=== PATIENT | male | born 1965 | race Caucasian/White ===

== ENCOUNTER 2017-05-13 06:57 | Inpatient (IN) | payer BC, OTHER ==
[~2017-05-13 06:57] MED LIST: Lidocaine 1%/Sod Bicarbonate in NS 8.4% 1 ML Syringe PRN; Sodium Chloride 0.9% 10 ML Syringe FLUSH PRN
[2017-05-13] MEDS: Lactated Ringers 1,000 ML IV SCH ×2 (07:21→12:04)
--- NOTE | 2017-05-13 07:37 | PCM.PREANE ---
Preanesthetic Assessment - Procedure Proposed Procedure: Right TKA - Anesthesia/Transfusion/Family Hx Anesthesia History: Prior Anesthesia Without Reaction Family History of Anesthesia Reaction: Yes (mother has excessive somnolence) Transfusion History: No Prior Transfusion(s) Intubation History: Unknown - Review of Systems General: No Symptoms Pulmonary: Other (GERBER with CPAP) Cardiovascular: Other (HLD, ) Gastrointestinal: Other (GERD) Neurological: No Symptoms Other: Reports: Diabetes (preDM), Anxiety - Physical Assessment NPO Status Date: 05/12/17 NPO Status Time: 20:00 Pulse: 64 O2 Sat by Pulse Oximetry: 95 Respiratory Rate: 16 Blood Pressure: 123/81 Temperature: 36.9 C Height: 1.83 m Weight: 111.584 kg ASA Class: 2 Mental Status: Alert & Oriented x3 Airway Class: Mallampati = 2 Dentition: Reports: Normal Dentition Thyro-Mental Finger Breadths: 3 Mouth Opening Finger Breadths: 3 ROM/Head Extension: Full Lungs: Clear to auscultation, Normal respiratory effort Cardiovascular: Regular Rate, Regular Rhythm - Lab Values: Laboratory Last Values POC Glucose 108 mg/dL (70-105) H 05/13/17 07:22 MRSA (PCR) Negative 05/03/17 11:23 - Allergies Allergies/Adverse Reactions: Allergies Allergy/AdvReac Type Severity Reaction Status Date / Time codeine Allergy Anaphylactic Verified 05/10/17 11:57 Shock - Blood Blood Available: No Product(s) Available: None - Anesthesia Plan Pre-Op Medication Ordered: None - Acknowledgements Anesthesia Type Planned: Spinal (Fontana rods placed in 2003, also patient tolerates morphine fine) Pt an Appropriate Candidate for the Planned Anesthesia: Yes Alternatives and Risks of Anesthesia Discussed w Pt/Guardian: Yes Pt/Guardian Understands and Agrees with Anesthesia Plan: Yes PreAnesthesia Questionnaire HEENT History: Reports: None Cardiovascular History: Reports: High Cholesterol Respiratory History: Reports: Sleep Apnea Gastrointestinal History: Reports: GERD Genitourinary History: Reports: None 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) Other OB/BYN History: degenerative joint disease Musculoskeletal History: Reports: Osteoarthritis, Other (See Below) Other Musculoskeletal History: Degenerative joint disease Neurological History: Reports: None Other Neuro History: short term memory loss Psychiatric History: Reports: Anxiety, Depression Endocrine/Metabolic History: Reports: Other (See Below) Other Endocrine/Metabolic History: Impaired fasting glucose Hematologic History: Reports: None Immunologic History: Reports: None Oncologic (Cancer) History: Reports: None Dermatologic History: Reports: None - Past Surgical History HEENT Surgical History: Reports: Tonsillectomy, Other (See Below) Other HEENT Surgeries/Procedures: Laryngeal stripping of vocal cords Cardiovascular Surgical History: Reports: None Respiratory Surgical History: Reports: None GI Surgical History: Reports: None Male Surgical History: Reports: None Endocrine Surgical History: Reports: None Neurological Surgical History: Reports: Discectomy Musculoskeletal Surgical History: Reports: Knee Replacement, Other (See Below) Other Musculoskeletal Surgeries/Procedures:: Left total knee replacement, low back surgery, cervical anterior diskectomy Dermatological Surgical History: Reports: None - SUBSTANCE USE Smoking Status *Q: Never Smoker Tobacco Use Within Last Twelve Months: No Second Hand Smoke Exposure: No Recreational Drug Use History: No - HOME MEDS Home Medications: Home Meds Aspirin 1 tab PO DAILY 10/12/16 [History] Cholecalciferol (Vitamin D3) [Vitamin D3] 2,000 unit PO DAILY 10/12/16 [History] Citalopram [Celexa] 20 mg PO DAILY 10/12/16 [History] Multivitamin [Poly-Vitamin] 1 tab PO DAILY 10/12/16 [History] Ranitidine [Zantac] 150 mg PO BID 10/12/16 [History] metFORMIN HCl [Metformin HCl] 1,000 mg PO BID 10/12/16 [History] Omeprazole 20 mg PO DAILY 10/15/16 [History] Ascorbate Calcium [Vitamin C] 500 mg PO DAILY 05/10/17 [History] Gluc 2KCl/Chondr/Charlene Hy/Hy Ac [Glucosamine & Chondroitin Cap] 1 tab PO DAILY [History] atorvaSTATin [Lipitor] 20 mg PO DAILY 05/10/17 [History] - CURRENT (IN HOUSE) MEDS Current Meds: Current Medications Aspirin (Ecotrin) 325 mg PO BID [facility] Bisacodyl (Dulcolax) 5 mg PO DAILY PRN PRN Reason: Constipation Morphine Sulfate 8 mg/Epinephrine HCl 0.3 mg/Cefuroxime Sodium 750 mg/Ketorolac Tromethamine 30 mg/Sodium Chloride 27.9 ml 0 mg .XX ONETIME ONE Stop: 05/13/17 09:01 Cyclobenzaprine HCl (Flexeril) 10 mg PO TID PRN PRN Reason: Spasms Docusate Sodium (Colace) 100 mg PO BID [facility] Famotidine (Pepcid) 20 mg PO Q12H [facility] Lactated Ringer's (Ringers, Lactated) 1,000 mls @ 125 mls/hr IV ASDIRECTED FREDIS Stop: 05/13/17 23:00 Cefazolin Sodium/Dextrose 2 gm (/ Premix) 50 mls @ 100 mls/hr IV Q8H [facility] Stop: 05/13/17 23:29 Ketorolac Tromethamine (Toradol) 15 mg IVPUSH Q6H PRN PRN Reason: Pain Stop: 05/13/17 13:01 Lidocaine/Sodium Bicarbonate (Buffered Lidocaine 1% In Ns 8.4%) 0.25 ml .XX ONETIME PRN PRN Reason: Prior to IV Start Stop: 05/13/17 18:00 Magnesium Hydroxide (Milk Of Magnesia) 30 ml PO BID PRN PRN Reason: Constipation Morphine Sulfate (Morphine) 2 mg IVPUSH Q2H PRN PRN Reason: Breakthrough Pain Multivitamins (Thera) 1 each PO WITHBREAKFAST [facility] Naloxone HCl (Narcan) 0.1 mg IVPUSH Q5M PRN PRN Reason: Oversedation Stop: 05/13/17 07:16 Oxycodone/Acetaminophen (Percocet 325-5 Mg) 1 - 2 tab PO Q4H PRN PRN Reason: Pain Senna (Senna) 8.6 mg PO BID PRN PRN Reason: Constipation Sodium Chloride (Saline Flush) 10 ml FLUSH ASDIRECTED PRN PRN Reason: Keep Vein Open Stop: 05/13/17 18:00 Discontinued Medications Bupivacaine HCl (Marcaine 0.25%) Confirm Administered Dose 30 ml .ROUTE .STK- MED ONE Stop: 05/13/17 07:13 Cefazolin Sodium (Ancef) Confirm Administered Dose 2 gm .ROUTE .STK-MED ONE Stop: 05/13/17 07:13 Fentanyl (Sublimaze) Confirm Administered Dose 100 mcg .ROUTE .STK-MED ONE Stop: 05/13/17 07:41 Iodine (Iodine 2% Mild Tincture) Confirm Administered Dose 30 ml .ROUTE .STK- MED ONE Stop: 05/13/17 07:13 Midazolam HCl (Versed 1 Mg/Ml) Confirm Administered Dose 2 mg .ROUTE .STK-MED ONE Stop: 05/13/17 07:41 Propofol (Diprivan 20 Ml) Confirm Administered Dose 600 mg .ROUTE .STK-MED ONE Stop: 05/13/17 07:41 Tranexamic Acid (Cyklokapron) Confirm Administered Dose 1,000 mg .ROUTE .STK- MED ONE Stop: 05/13/17 07:13
[2017-05-13] MEDS ORDERED: Midazolam 1 MG/ML 2 ML SDV ONE (07:40)
[2017-05-13] MEDS ORDERED: Propofol 200 MG/20 ML SDV ONE ×2 (07:40→10:13)
[2017-05-13] MEDS ORDERED: fentaNYL 100 MCG/2 ML SDV ONE (07:40)
[2017-05-13] MEDS ORDERED: Lidocaine 1% 2 ML ONE ×2 (07:42)
[2017-05-13] MEDS ORDERED: Morphine PF 10 MG/10 ML SDV ONE (07:46)
[2017-05-13] MEDS ORDERED: Lidocaine 1% 4 ML ONE (09:15)
[2017-05-13] MEDS ORDERED: Lactated Ringers 1,000 ML ONE (09:17)
[2017-05-13] MEDS ORDERED: ceFAZolin 1 GM Vial ONE (09:17)
[2017-05-13] MEDS: ceFAZolin 1 GM Vial ONE ×2 (09:35→10:02)
[2017-05-13] MEDS: Bupivacaine 0.25% 30 ML SDV ONE ×2 (09:35→10:23)
[2017-05-13] MEDS: Iodine/Sodium Iodide 2% Tincture 30 ML Bottle ONE ×2 (09:36→10:14)
[2017-05-13] MEDS: Morphine 8 MG, EPINEPHrine 0.3 MG, Cefuroxime 750 MG, Ketorolac 30 MG, Sodium Chloride ... ONE ×15 (09:37→19:40)
[2017-05-13] MEDS ORDERED: Ketorolac 15 MG/ML SDV IVPUSH PRN (10:00)
[2017-05-13] MEDS ORDERED: Ondansetron 4 MG/2 ML SDV ONE (10:09)
[2017-05-13] MEDS ORDERED: Magnesium Hydroxide 400 MG/5 ML Susp 30 ML Cup PO PRN (11:00)
[2017-05-13] MEDS ORDERED: Sennosides 8.6 MG Tab PO PRN (11:00)
[2017-05-13] MEDS ORDERED: Bisacodyl 5 MG Tab PO PRN (11:00)
[2017-05-13] MEDS ORDERED: Naloxone 0.4 MG/ML SDV IVPUSH PRN (11:00)
--- NOTE | 2017-05-13 11:12 | PCM.POSTAN ---
POST ANESTHESIA ASSESSMENT - MENTAL STATUS Mental Status: alert - VITAL SIGNS Pulse Rate: 57 SaO2: 98 Resp Rate: 15 Blood Pressure: 116/67 Temperature: 36.4 C - RESPIRATORY Respiratory Status: respiratory rate WNL, airway patent, O2 saturation stable - CARDIOVASCULAR CV Status: pulse rate WNL, blood pressure stable - GASTROINTESTINAL GI Status: no symptoms - PAIN Pain Score: 0 - POST OP HYDRATION Hydration Status: adequate & stable
[2017-05-13] MEDS ORDERED: Meperidine PF 50 MG/ML Syringe IVPUSH PRN (11:20)
[2017-05-13] MEDS ORDERED: diphenhydrAMINE 50 MG/ML SDV IVPUSH PRN (11:20)
[2017-05-13] MEDS ORDERED: Ondansetron 4 MG/2 ML SDV IVPUSH PRN (11:20)
--- NOTE | 2017-05-13 12:31 | CR ---
Left knee: AP and lateral views of the left knee were obtained. Comparison: Previous left knee study of 11/29/16. Knee prosthesis is seen. Soft tissue air is seen from the surgical procedure. Underlying bony structures are intact. Impression: 1. Satisfactory appearance of a recently placed left knee prosthesis. Diagnostic code #2
--- NOTE | 2017-05-13 12:36 | PCM.CONS ---
H&P History of Present Illness - General Date of Service: 05/13/17 Admit Problem/Dx: Admission Diagnosis/Problem Admission Diagnosis/Problem Osteoarthritis of knee Source of Information: Patient, Family, Other (anesthesia notes) History Limitations: Reports: No Limitations - History of Present Illness Initial Comments - Free Text/Narative: Naveen is a 51yo male s/p Rt TKA with Dr. Chapman this morning; also underwent lt knee manipulation. Doing well thus far, pain controlled, no nausea. No other concerns. He is s/p Lt TKA a few months ago as well; it is reported that he did not participate in PT as outpatient due to work schedule. PMH significant for GERBER wears CPAP, GERD, depression/anxiety, HLD, Diabetes with good control- last A1C 6.1 and chronic LBP. Hospitalist service is consulted for postoperative medical management. Onset of Symptoms: Reports: Gradual, Other (Rt knee pain) Location: Reports: Lower Extremity, Right Improves with: Reports: Medication Worsens with: Reports: Movement Associated Symptoms: Reports: No Other Symptoms - Related Data Allergies/Adverse Reactions: Allergies Allergy/AdvReac Type Severity Reaction Status Date / Time codeine Allergy Anaphylactic Verified 05/13/17 10:32 Shock Home Medications: Home Meds Aspirin 1 tab PO DAILY 10/12/16 [History] Cholecalciferol (Vitamin D3) [Vitamin D3] 2,000 unit PO DAILY 10/12/16 [History] Citalopram [Celexa] 20 mg PO DAILY 10/12/16 [History] Multivitamin [Poly-Vitamin] 1 tab PO DAILY 10/12/16 [History] Ranitidine [Zantac] 150 mg PO BID 10/12/16 [History] metFORMIN HCl [Metformin HCl] 1,000 mg PO BID 10/12/16 [History] Omeprazole 20 mg PO DAILY 10/15/16 [History] Ascorbate Calcium [Vitamin C] 500 mg PO DAILY 05/10/17 [History] Gluc 2KCl/Chondr/Charlene Hy/Hy Ac [Glucosamine & Chondroitin Cap] 1 tab PO DAILY [History] atorvaSTATin [Lipitor] 20 mg PO DAILY 05/10/17 [History] Past Medical History HEENT History: Reports: None Cardiovascular History: Reports: High Cholesterol Respiratory History: Reports: Sleep Apnea Gastrointestinal History: Reports: GERD Genitourinary History: Reports: None 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) Other OB/BYN History: degenerative joint disease Musculoskeletal History: Reports: Osteoarthritis, Other (See Below) Other Musculoskeletal History: Degenerative joint disease Neurological History: Reports: None Other Neuro History: short term memory loss Psychiatric History: Reports: Anxiety, Depression Endocrine/Metabolic History: Reports: Other (See Below) Other Endocrine/Metabolic History: Impaired fasting glucose Hematologic History: Reports: None Immunologic History: Reports: None Oncologic (Cancer) History: Reports: None Dermatologic History: Reports: None - Past Surgical History HEENT Surgical History: Reports: Tonsillectomy, Other (See Below) Other HEENT Surgeries/Procedures: Laryngeal stripping of vocal cords Cardiovascular Surgical History: Reports: None Respiratory Surgical History: Reports: None GI Surgical History: Reports: None Male Surgical History: Reports: None Endocrine Surgical History: Reports: None Neurological Surgical History: Reports: Discectomy Musculoskeletal Surgical History: Reports: Knee Replacement, Other (See Below) Other Musculoskeletal Surgeries/Procedures:: Left total knee replacement, low back surgery, cervical anterior diskectomy Dermatological Surgical History: Reports: None Social & Family History - Family History Family Medical History: Noncontributory - Tobacco Use Smoking Status *Q: Never Smoker Second Hand Smoke Exposure: No - Caffeine Use Caffeine Use: Reports: None - Recreational Drug Use Recreational Drug Use: No H&P Review of Systems - Review of Systems: Review Of Systems: See Below General: Reports: No Symptoms HEENT: Reports: No Symptoms Pulmonary: Reports: No Symptoms Cardiovascular: Reports: No Symptoms Gastrointestinal: Reports: No Symptoms Genitourinary: Reports: No Symptoms Musculoskeletal: Reports: Leg Pain (rt knee; minimal currently) Skin: Reports: No Symptoms Psychiatric: Reports: No Symptoms Neurological: Reports: No Symptoms Hematologic/Lymphatic: Reports: No Symptoms Immunologic: Reports: No Symptoms Exam - Exam Exam: See Below - Vital Signs Vital Signs: Last Vital Signs Temp 97.5 F 05/13/17 11:12 Pulse 57 L 05/13/17 11:12 Resp 15 05/13/17 11:12 BP 116/67 05/13/17 11:12 Pulse Ox 98 05/13/17 11:12 Weight: 246 lb - Exam Quality Assessment: Urinary Catheter General: Alert, Oriented, Cooperative HEENT: Conjunctiva Clear, EACs Clear, EOMI, Hearing Intact, Mucosa Moist & [place] , Pupils Equal, Pupils Reactive Neck: Supple, Trachea Midline Lungs: Clear to Auscultation, Normal Respiratory Effort, Decreased Breath Sounds (bases) Cardiovascular: Regular Rate, Regular Rhythm Abdomen: Normal Bowel Sounds, Soft (Male) Exam: Deferred Rectal (Males) Exam: Deferred Extremities: Other (bilat SCD's; jeri wrap to rt knee) Neurological: Cranial Nerves Intact Neuro Extensive - Mental Status: Alert, Oriented x3, Normal Mood/Affect, Normal Cognition, Memory Intact Neuro Extensive - Motor, Sensory, Reflexes: CN II-XII Intact Psychiatric: Alert, Normal Affect, Normal Mood - Patient Data Lab Results Last 24 hrs: Laboratory Results - last 24 hr 05/13/17 Range/Units 07:22 POC Glucose 108 H (70-105) mg/dL Consult PN Assessment/Plan POD#: 0 Procedures: Procedures ASSAY OF FERRITIN (05/03/17) ASSAY OF PREALBUMIN (05/03/17) ASSAY THYROID STIM HORMONE (07/07/16) CHEST X-RAY 2VW FRONTAL&LATL (10/12/16) COMPLETE CBC AUTOMATED (10/09/16) COMPLETE CBC W/AUTO DIFF WBC (05/03/17) COMPREHEN METABOLIC PANEL (05/03/17) CT HEAD/BRAIN W/O DYE (11/29/16) CT NECK SPINE W/O DYE (11/29/16) ELECTRICAL STIMULATION (11/02/16) EMERGENCY DEPT VISIT (11/29/16) GAIT TRAINING THERAPY (11/02/16) GLYCOSYLATED HEMOGLOBIN TEST (05/03/17) LIPID PANEL (07/07/16) MANUAL THERAPY 1/> REGIONS (11/02/16) MEASURE BLOOD OXYGEN LEVEL (07/29/15) MR-STAPH DNA AMP PROBE (10/09/16) NEUROMUSCULAR REEDUCATION (11/02/16) PROTHROMBIN TIME (05/03/17) PT EVALUATION (11/02/16) ROUTINE VENIPUNCTURE (05/03/17) THER/PROPH/DIAG INJ SC/IM (11/29/16) THERAPEUTIC EXERCISES (11/02/16) THROMBOPLASTIN TIME PARTIAL (05/03/17) URINALYSIS AUTO W/SCOPE (10/09/16) VIT D 1 25-DIHYDROXY (10/12/16) VITAMIN D 25 HYDROXY (05/03/17) X-RAY EXAM KNEE 4 OR MORE (09/14/16) X-RAY EXAM OF KNEE 3 (11/29/16) (1) S/P total knee arthroplasty SNOMED Code(s): 9639232261223, 200804568, 5228728898046 Code(s): Z96.659 - PRESENCE OF UNSPECIFIED ARTIFICIAL KNEE JOINT Priority: High Current Visit: Yes Qualifiers: Laterality: right Qualified Code(s): Z96.651 - Presence of right artificial knee joint (2) Osteoarthritis SNOMED Code(s): 946332326 Code(s): M19.90 - UNSPECIFIED OSTEOARTHRITIS, UNSPECIFIED SITE Priority: High Current Visit: Yes Qualifiers: Osteoarthritis location: knee Osteoarthritis type: primary Laterality: right Qualified Code(s): M17.11 - Unilateral primary osteoarthritis, right knee (3) Diabetes type 2, controlled SNOMED Code(s): 65492574 Code(s): E11.9 - TYPE 2 DIABETES MELLITUS WITHOUT COMPLICATIONS Priority: Medium Current Visit: Yes Qualifiers: Diabetes mellitus complication status: without complication 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: without 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 supervisor use Qualified Code(s): E11.9 - Type 2 diabetes mellitus without complications (4) Hyperlipidemia SNOMED Code(s): 12069385 Code(s): E78.5 - HYPERLIPIDEMIA, UNSPECIFIED Priority: Medium Current Visit: No Qualifiers: Hyperlipidemia type: unspecified Qualified Code(s): E78.5 - Hyperlipidemia , unspecified (5) Anxiety SNOMED Code(s): 59553070 Code(s): F41.9 - ANXIETY DISORDER, UNSPECIFIED Priority: Medium Current Visit: No (6) Chronic back pain SNOMED Code(s): 845954268 Code(s): M54.9 - DORSALGIA, UNSPECIFIED; G89.29 - OTHER CHRONIC PAIN Priority: Medium Current Visit: No Qualifiers: Back pain location: back pain in unspecified location Problem List Initiated/Reviewed/Updated: Yes Plan: I/P: POD #0; Lt TKA with Dr. Chapman -Pain management and DVT prophylax per Orthopedics -PT/OT -IS/RT -Preop hgb was 14.3 -Follow am labs Chronic conditions: DM- hold metformin during hospital stay, will use SSI- resume metformin on DC HLD- cont home meds GERBER, cont with home CPAP Depression/anxiety- cont home meds Chronic LBP Other: CM/SW for assist with DC planning- plans DC home with family to assist GI prophylax Patient is Full Code status.
[2017-05-13] MEDS ORDERED: Diphtheria,Pertussis(Acell),Tetanus Vaccine 0.5 ML SDV IM ONE (12:39)
[2017-05-13] MEDS ORDERED: 50% Dextrose in Water 50 ML Syringe IVPUSH PRN (12:43)
[2017-05-13] MEDS: ceFAZolin 2 GM in Premix Bag 1 BAG IV SCH (16:42)
[2017-05-13] MEDS: Insulin Aspart 100 Units/ML 3 ML Pen SUBCUT SCH ×2 (17:39→22:21)
[2017-05-13] MEDS: Acetaminophen/oxyCODONE 325-5 MG Tab PO PRN ×2 (18:02→21:48)
[2017-05-13] MEDS: Docusate Sodium 100 MG Cap PO SCH (20:43)
[2017-05-13] MEDS: Cyclobenzaprine 10 MG Tab PO PRN (20:43)
[2017-05-13] MEDS ORDERED: Famotidine 20 MG Tab PO SCH (21:00)
[2017-05-14] MEDS ORDERED: Ketorolac 15 MG/ML SDV IVPUSH ONE (00:25)
[2017-05-14] MEDS: oxyCODONE 5 MG Tab PO PRN (00:42)
[2017-05-14] MEDS: ceFAZolin 2 GM in Premix Bag 1 BAG IV SCH ×2 (00:43→09:33)
[2017-05-14] MEDS: Morphine 2 MG/ML Syringe IVPUSH PRN ×3 (01:36→16:38)
[2017-05-14] MEDS: Acetaminophen/oxyCODONE 325-5 MG Tab PO PRN ×5 (05:39→21:44)
[2017-05-14] MEDS: Multivitamins,Therapeutic Tab PO SCH ×2 (05:39→10:20)
[2017-05-14] MEDS ORDERED: Aspirin 81 MG Tab.Chew PO SCH (09:00)
[2017-05-14] MEDS ORDERED: MULTIVITAMIN PO SCH (09:00)
[2017-05-14] MEDS: Ascorbic Acid 500 MG Tab PO SCH (09:31)
[2017-05-14] MEDS: Aspirin 325 MG Tab.EC PO SCH ×2 (09:31→20:49)
[2017-05-14] MEDS: Citalopram 20 MG Tab PO SCH (09:32)
[2017-05-14] MEDS: Simvastatin 20 MG Tab PO SCH (09:32)
[2017-05-14] MEDS: Pantoprazole 40 MG Tab.CR PO SCH (09:32)
[2017-05-14] MEDS: Cholecalciferol (Vitamin D3) 1,000 Unit Tab PO SCH (09:32)
[2017-05-14] MEDS: Docusate Sodium 100 MG Cap PO SCH ×2 (09:33→20:49)
[2017-05-14] MEDS: Insulin Aspart 100 Units/ML 3 ML Pen SUBCUT SCH ×4 (10:17→21:08)
--- NOTE | 2017-05-14 12:26 | PCM48HPAN ---
Post Anesthesia Note - EVALUATION WITHIN 48HRS OF ANESTHETIC Vital Signs in Normal Range: Yes Patient Participated in Evaluation: Yes Respiratory Function Stable: Yes Airway Patent: Yes Cardiovascular Function Stable: Yes Hydration Status Stable: Yes Pain Control Satisfactory: Yes Nausea and Vomiting Control Satisfactory: Yes Mental Status Recovered: Yes
--- NOTE | 2017-05-14 13:10 | PCM.CONSN ---
- General Info Date of Service: 05/14/17 Admission Dx/Problem (Free Text): Admission Diagnosis/Problem Admission Diagnosis/Problem Osteoarthritis of knee POD #1 Rt TKA Pain not well controlled this morning, IV morphine needed at around 10am. Otherwise no nausea. Doing well with PT. Reports that he had hypoxia overnight and needed up to 7L O2 bled into his CPAP overnight. Currently is on RA with saturations >90%. Does not feel SOB. No coughing, wheezing, CP or palpitations noted. Functional Status: Reports: tolerating diet, ambulating, urinating. Denies: pain controlled, new symptoms - Review of Systems General: Reports: No Symptoms HEENT: Reports: no symptoms Pulmonary: Reports: no symptoms Cardiovascular: Reports: No Symptoms Gastrointestinal: Reports: No symptoms Genitourinary: Reports: no symptoms Musculoskeletal: Reports: leg pain Skin: Reports: no symptoms Neurological: Reports: No Symptoms Psychiatric: Reports: no symptoms - Patient Data Vitals - most recent: Last Vital Signs Temp 97.9 F 05/14/17 12:28 Pulse 78 05/14/17 12:28 Resp 13 05/14/17 12:28 BP 125/69 05/14/17 12:28 Pulse Ox 93 L 05/14/17 12:28 Weight - most recent: 267 lb I&O - last 24 hours: Intake & Output 05/13/17 05/14/17 05/14/17 22:59 06:59 14:59 Intake Total 1970 1250 Output Total 100 190 Balance 1870 1060 Lab Results last 24 hrs: Laboratory Results - last 24 hr 05/13/17 05/13/17 05/14/17 Range/Units 17:17 21:26 05:46 WBC 11.66 H (4.23-9.07) K/mm3 RBC 4.22 L (4.63-6.08) M/mm3 Hgb 12.9 L (13.7-17.5) gm/L Hct 39.4 L (40.1-51.0) % MCV 93.4 H (79.0-92.2) fl MCH 30.6 (25.7-32.2) pg MCHC 32.7 (32.2-35.5) g/dl RDW Std Deviation 46.8 H (35.1-43.9) fL Plt Count 214 (163-337) K/mm3 MPV 10.2 (9.4-12.3) fl Neut % (Auto) 54.4 (34.0-67.9) % Lymph % (Auto) 25.8 (21.8-53.1) % [place] % (Auto) 17.9 H (5.3-12.2) % Eos % (Auto) 1.3 (0.8-7.0) Baso % (Auto) 0.2 (0.1-1.2) % Neut # (Auto) 6.34 H (1.78-5.38) K/mm3 Lymph # (Auto) 3.01 (1.32-3.57) K/mm3 [place] # (Auto) 2.09 H (0.30-0.82) K/mm3 Eos # (Auto) 0.15 (0.04-0.54) K/mm3 Baso # (Auto) 0.02 (0.01-0.08) K/mm3 Manual Slide Review Normal smear Sodium (136-145) mEq/L Potassium (3.5-5.1) mEq/L Chloride (98-107) mEq/L Carbon Dioxide (21-32) mEq/L Anion Gap (5-15) BUN (7-18) mg/dL Creatinine (0.7-1.3) mg/dL Est Cr Clr Drug Dosing mL/min Estimated GFR (MDRD) (>60) mL/min BUN/Creatinine Ratio (14-18) Glucose (74-106) mg/dL POC Glucose 74 104 (70-105) mg/dL Calcium (8.5-10.1) mg/dL Total Bilirubin (0.2-1.0) mg/dL AST (15-37) U/L ALT (16-63) U/L Alkaline Phosphatase (46-116) U/L Total Protein (6.4-8.2) g/dl Albumin (3.4-5.0) g/dl Globulin gm/dL Albumin/Globulin Ratio (1-2) 05/14/17 05/14/17 05/14/17 Range/Units 05:46 06:59 10:58 WBC (4.23-9.07) K/mm3 RBC (4.63-6.08) M/mm3 Hgb (13.7-17.5) gm/L Hct (40.1-51.0) % MCV (79.0-92.2) fl MCH (25.7-32.2) pg MCHC (32.2-35.5) g/dl RDW Std Deviation (35.1-43.9) fL Plt Count (163-337) K/mm3 MPV (9.4-12.3) fl Neut % (Auto) (34.0-67.9) % Lymph % (Auto) (21.8-53.1) % [place] % (Auto) (5.3-12.2) % Eos % (Auto) (0.8-7.0) Baso % (Auto) (0.1-1.2) % Neut # (Auto) (1.78-5.38) K/mm3 Lymph # (Auto) (1.32-3.57) K/mm3 [place] # (Auto) (0.30-0.82) K/mm3 Eos # (Auto) (0.04-0.54) K/mm3 Baso # (Auto) (0.01-0.08) K/mm3 Manual Slide Review Sodium 137 (136-145) mEq/L Potassium 4.0 (3.5-5.1) mEq/L Chloride 99 (98-107) mEq/L Carbon Dioxide 29 (21-32) mEq/L Anion Gap 13.0 (5-15) BUN 23 H (7-18) mg/dL Creatinine 1.3 (0.7-1.3) mg/dL Est Cr Clr Drug Dosing 72.96 mL/min Estimated GFR (MDRD) 58 (>60) mL/min BUN/Creatinine Ratio 17.7 (14-18) Glucose 131 H (74-106) mg/dL POC Glucose 115 H 128 H (70-105) mg/dL Calcium 8.5 (8.5-10.1) mg/dL Total Bilirubin 1.1 H (0.2-1.0) mg/dL AST 30 (15-37) U/L ALT 32 (16-63) U/L Alkaline Phosphatase 97 (46-116) U/L Total Protein 7.4 (6.4-8.2) g/dl Albumin 3.9 (3.4-5.0) g/dl Globulin 3.5 gm/dL Albumin/Globulin Ratio 1.1 (1-2) Med Orders - Current: Current Medications Ascorbic Acid (Vitamin C) 500 mg PO DAILY [facility] Last Admin: 05/14/17 09:31 Dose: 500 mg Aspirin (Ecotrin) 325 mg PO BID [facility] Last Admin: 05/14/17 09:31 Dose: 325 mg Bisacodyl (Dulcolax) 5 mg PO DAILY PRN PRN Reason: Constipation Cholecalciferol (Vitamin D3) 2,000 units PO DAILY [facility] Last Admin: 05/14/17 09:32 Dose: 2,000 units Citalopram Hydrobromide (Celexa) 20 mg PO DAILY [facility] Last Admin: 05/14/17 09:32 Dose: 20 mg Cyclobenzaprine HCl (Flexeril) 10 mg PO TID PRN PRN Reason: Spasms Dextrose/Water (Dextrose 50% In Water) 50 ml IVPUSH ASDIRECTED PRN PRN Reason: Hypoglycemia Docusate Sodium (Colace) 100 mg PO BID [facility] Last Admin: 05/14/17 09:33 Dose: 100 mg Insulin Aspart (Novolog) 0 unit SUBCUT QIDACANDBED [facility] PRN Reason: Protocol Last Admin: 05/14/17 12:56 Dose: Not Given Magnesium Hydroxide (Milk Of Magnesia) 30 ml PO BID PRN PRN Reason: Constipation Morphine Sulfate (Morphine) 2 mg IVPUSH Q2H PRN PRN Reason: Breakthrough Pain Last Admin: 05/14/17 10:20 Dose: 2 mg Multivitamins (Thera) 1 each PO WITHBREAKFAST [facility] Last Admin: 05/14/17 10:20 Dose: 1 each Oxycodone HCl (Oxycodone) 5 mg PO Q6H PRN PRN Reason: Pain Last Admin: 05/14/17 00:42 Dose: 5 mg Oxycodone/Acetaminophen (Percocet 325-5 Mg) 1 - 2 tab PO Q4H PRN PRN Reason: Pain Last Admin: 05/14/17 09:29 Dose: 2 tab Pantoprazole Sodium (Protonix) 40 mg PO DAILY [facility] Last Admin: 05/14/17 09:32 Dose: 40 mg Senna (Senna) 8.6 mg PO BID PRN PRN Reason: Constipation Simvastatin (Zocor) 20 mg PO DAILY [facility] Last Admin: 05/14/17 09:32 Dose: 20 mg Discontinued Medications Aspirin (Aspirin) 81 mg PO DAILY [facility] Bupivacaine HCl (Marcaine 0.25%) Confirm Administered Dose 30 ml .ROUTE .STK- MED ONE Stop: 05/13/17 07:13 Last Admin: 05/13/17 10:23 Dose: 30 ml Cefazolin Sodium (Ancef) Confirm Administered Dose 2 gm .ROUTE .STK-MED ONE Stop: 05/13/17 07:13 Last Admin: 05/13/17 10:02 Dose: 2 gm Cefazolin Sodium (Ancef) Confirm Administered Dose 2 gm .ROUTE .STK-MED ONE Stop: 05/13/17 09:18 Morphine Sulfate 8 mg/Epinephrine HCl 0.3 mg/Cefuroxime Sodium 750 mg/Ketorolac Tromethamine 30 mg/Sodium Chloride 27.9 ml 0 mg .XX ONETIME ONE Stop: 05/13/17 09:01 Last Admin: 05/13/17 19:40 Dose: Not Given Diphenhydramine HCl (Benadryl) 12.5 mg IVPUSH Q6H PRN PRN Reason: pruritis Stop: 05/13/17 18:00 Diphtheria/Tetanus/Acell Pertussis (Adacel) 0.5 ml IM .ONCE ONE Stop: 05/13/17 12:40 Famotidine (Pepcid) 20 mg PO BID [facility] Fentanyl (Sublimaze) Confirm Administered Dose 100 mcg .ROUTE .STK-MED ONE Stop: 05/13/17 07:41 Lactated Ringer's (Ringers, Lactated) 1,000 mls @ 125 mls/hr IV ASDIRECTED [facility] Stop: 05/13/17 23:00 Last Admin: 05/13/17 12:04 Dose: 125 mls/hr Cefazolin Sodium/Dextrose 2 gm (/ Premix) 50 mls @ 100 mls/hr IV Q8H [facility] Stop: 05/14/17 09:29 Last Admin: 05/14/17 09:33 Dose: 100 mls/hr Lidocaine HCl (Xylocaine-Mpf 1%) Confirm Administered Dose 2 mls @ as directed .ROUTE .STK-MED ONE Stop: 05/13/17 07:43 Lidocaine HCl (Xylocaine-Mpf 1%) Confirm Administered Dose 2 mls @ as directed .ROUTE .STK-MED ONE Stop: 05/13/17 07:43 Lidocaine HCl (Xylocaine-Mpf 1%) Confirm Administered Dose 4 mls @ as directed .ROUTE .STK-MED ONE Stop: 05/13/17 09:16 Lactated Ringer's (Ringers, Lactated) Confirm Administered Dose 1,000 mls @ as directed .ROUTE .STK-MED ONE Stop: 05/13/17 09:18 Iodine (Iodine 2% Mild Tincture) Confirm Administered Dose 30 ml .ROUTE .STK- MED ONE Stop: 05/13/17 07:13 Last Admin: 05/13/17 10:14 Dose: 18 ml Ketorolac Tromethamine (Toradol) 15 mg IVPUSH Q6H PRN PRN Reason: Pain Stop: 05/13/17 16:01 Ketorolac Tromethamine (Toradol) 15 mg IVPUSH ONETIME ONE Stop: 05/14/17 00:26 Last Admin: 05/14/17 00:42 Dose: 15 mg Lidocaine/Sodium Bicarbonate (Buffered Lidocaine 1% In Ns 8.4%) 0.25 ml .XX ONETIME PRN PRN Reason: Prior to IV Start Stop: 05/13/17 18:00 Last Admin: 05/13/17 07:21 Dose: 0.25 ml Meperidine HCl (Demerol) 12.5 mg IVPUSH ONETIME PRN PRN Reason: shivering Stop: 05/14/17 11:21 Midazolam HCl (Versed 1 Mg/Ml) Confirm Administered Dose 2 mg .ROUTE .STK-MED ONE Stop: 05/13/17 07:41 Morphine Sulfate (Duramorph Pf) Confirm Administered Dose 10 mg .ROUTE .STK-MED ONE Stop: 05/13/17 07:47 Naloxone HCl (Narcan) 0.1 mg IVPUSH Q5M PRN PRN Reason: Oversedation Stop: 05/13/17 11:16 Non-Formulary Medication (Multivitamin [Poly-Vitamin]) 1 tab PO DAILY [facility] Ondansetron HCl (Zofran) Confirm Administered Dose 4 mg .ROUTE .STK-MED ONE Stop: 05/13/17 10:10 Ondansetron HCl (Zofran) 4 mg IVPUSH ONETIME PRN PRN Reason: Nausea/Vomiting Stop: 05/13/17 18:00 Propofol (Diprivan 20 Ml) Confirm Administered Dose 600 mg .ROUTE .STK-MED ONE Stop: 05/13/17 07:41 Propofol (Diprivan 20 Ml) Confirm Administered Dose 400 mg .ROUTE .STK-MED ONE Stop: 05/13/17 10:14 Sodium Chloride (Saline Flush) 10 ml FLUSH ASDIRECTED PRN PRN Reason: Keep Vein Open Stop: 05/13/17 18:00 Tranexamic Acid (Cyklokapron) Confirm Administered Dose 1,000 mg .ROUTE .STK- MED ONE Stop: 05/13/17 07:13 Last Admin: 05/13/17 10:33 Dose: 1,000 mg - Exam Quality Assessment: DVT prophylaxis General: alert, oriented, cooperative, no acute distress HEENT: Pupils equal, Pupils reactive, EOMI Neck: supple Lungs: Clear to auscultation, Normal respiratory effort Cardiovascular: Regular Rate, Regular Rhythm Abdomen: bowel sounds present, soft, no tenderness, no distension (Male) Exam: Deferred Extremities: other (Teds/SCD's bilat) Peripheral Pulses: 2+: Dorsalis Pedis (L), Dorsalis Pedis (R) Wound/Incisions: dressing dry and intact Neurological: no new focal deficit Psy/Mental Status: alert, normal affect, normal mood Consult PN Assessment/Plan POD#: 1 Procedures: Procedures ASSAY OF FERRITIN (05/03/17) ASSAY OF PREALBUMIN (05/03/17) ASSAY THYROID STIM HORMONE (07/07/16) CHEST X-RAY 2VW FRONTAL&LATL (10/12/16) COMPLETE CBC AUTOMATED (10/09/16) COMPLETE CBC W/AUTO DIFF WBC (05/03/17) COMPREHEN METABOLIC PANEL (05/03/17) CT HEAD/BRAIN W/O DYE (11/29/16) CT NECK SPINE W/O DYE (11/29/16) ELECTRICAL STIMULATION (11/02/16) EMERGENCY DEPT VISIT (11/29/16) GAIT TRAINING THERAPY (11/02/16) GLYCOSYLATED HEMOGLOBIN TEST (05/03/17) LIPID PANEL (07/07/16) MANUAL THERAPY 1/> REGIONS (11/02/16) MEASURE BLOOD OXYGEN LEVEL (07/29/15) MR-STAPH DNA AMP PROBE (10/09/16) NEUROMUSCULAR REEDUCATION (11/02/16) PROTHROMBIN TIME (05/03/17) PT EVALUATION (11/02/16) ROUTINE VENIPUNCTURE (05/03/17) THER/PROPH/DIAG INJ SC/IM (11/29/16) THERAPEUTIC EXERCISES (11/02/16) THROMBOPLASTIN TIME PARTIAL (05/03/17) URINALYSIS AUTO W/SCOPE (10/09/16) VIT D 1 25-DIHYDROXY (10/12/16) VITAMIN D 25 HYDROXY (05/03/17) X-RAY EXAM KNEE 4 OR MORE (09/14/16) X-RAY EXAM OF KNEE 3 (11/29/16) (1) S/P total knee arthroplasty SNOMED Code(s): 8474827758596, 316019413, 6422658142923 Code(s): Z96.659 - PRESENCE OF UNSPECIFIED ARTIFICIAL KNEE JOINT Priority: High Current Visit: Yes Qualifiers: Laterality: right Qualified Code(s): Z96.651 - Presence of right artificial knee joint (2) Osteoarthritis SNOMED Code(s): 502920716 Code(s): M19.90 - UNSPECIFIED OSTEOARTHRITIS, UNSPECIFIED SITE Priority: High Current Visit: Yes Qualifiers: Osteoarthritis location: knee Osteoarthritis type: primary Laterality: right Qualified Code(s): M17.11 - Unilateral primary osteoarthritis, right knee (3) Diabetes type 2, controlled SNOMED Code(s): 72023998 Code(s): E11.9 - TYPE 2 DIABETES MELLITUS WITHOUT COMPLICATIONS Priority: Medium Current Visit: Yes Qualifiers: Diabetes mellitus complication status: without complication Diabetes mellitus manager long term care insulin use: without senior care use Qualified Code(s): E11.9 - Type 2 diabetes mellitus without complications (4) Hyperlipidemia SNOMED Code(s): 13223407 Code(s): E78.5 - HYPERLIPIDEMIA, UNSPECIFIED Priority: Medium Current Visit: No Qualifiers: Hyperlipidemia type: unspecified Qualified Code(s): E78.5 - Hyperlipidemia , unspecified (5) Anxiety SNOMED Code(s): 61118489 Code(s): F41.9 - ANXIETY DISORDER, UNSPECIFIED Priority: Medium Current Visit: No (6) Chronic back pain SNOMED Code(s): 772396604 Code(s): M54.9 - DORSALGIA, UNSPECIFIED; G89.29 - OTHER CHRONIC PAIN Priority: Medium Current Visit: No Qualifiers: Back pain location: back pain in unspecified location Problem List Initiated/Reviewed/Updated: Yes My Orders last 24 hours: My Active Orders 05/13/17 12:43 Accu Check [Blood Glucose Check, Bedside] [RC] ,,, Dextrose 50% in Water 50 ml IVPUSH ASDIRECTED PRN 05/13/17 17:00 Insulin Aspart [NovoLOG] See Protocol SUBCUT QIDACANDBED 05/13/17 Dinner [employer] Diet [DIET] Heart Healthy Diet [DIET] 05/14/17 09:00 Ascorbic Acid [Vitamin C] 500 mg PO DAILY Cholecalciferol (Vitamin D3) [Vitamin D3] 2,000 units PO DAILY Citalopram [Celexa] 20 mg PO DAILY Pantoprazole [ProTONIX] 40 mg PO DAILY Simvastatin [Zocor] 20 mg PO DAILY Plan: I/P: POD #0; Lt TKA with Dr. Chapman -Pain management and DVT prophylax per Orthopedics -PT/OT -IS/RT -Preop hgb was 14.3--12.9 today Chronic conditions: DM- hold metformin during hospital stay, will use SSI- resume metformin on DC HLD- cont home meds GERBER, cont with home CPAP--hypoxic overnight, needed supplemental O2 bled into CPAP overnight. Recommend overnight oximetry study vs repeat Sleep Study Depression/anxiety- cont home meds Chronic LBP Other: CM/SW for assist with DC planning- plans DC home with family to assist---home today vs tomorrow depending on pain control. Medically stable for discharge from Hospitalist standpoint otherwise. GI prophylax Patient is Full Code status.
[2017-05-14] MEDS: Cyclobenzaprine 10 MG Tab PO PRN (20:49)
[2017-05-15] MEDS: Acetaminophen/oxyCODONE 325-5 MG Tab PO PRN ×3 (01:27→11:15)
[2017-05-15] MEDS: Multivitamins,Therapeutic Tab PO SCH (06:14)
--- NOTE | 2017-05-15 07:49 | PCM.SURGPN ---
- General Info Date of Service: 05/15/17 POD#: 2 Functional Status: Reports: pain controlled, tolerating diet, ambulating, urinating, other (The pt states he feels prepared for discharge to home.) - Review of Systems Musculoskeletal: Reports: other (The pt states he has no pain at left knee. Right knee pain controlled.) - Patient Data Vitals - most recent: Last Vital Signs Temp 99.0 F 05/14/17 21:04 Pulse 85 05/15/17 00:55 Resp 18 05/15/17 00:55 BP 141/77 H 05/15/17 00:55 Pulse Ox 85 L 05/15/17 00:55 Weight - most recent: 267 lb I&O - last 24 hours: Intake & Output 05/14/17 05/15/17 05/15/17 22:59 06:59 14:59 Intake Total 750 Output Total 400 Balance 350 Lab Results last 24 hrs: Laboratory Results - last 24 hr 05/14/17 05/14/17 05/14/17 Range/Units 10:58 17:05 20:52 POC Glucose 128 H 118 H 129 H (70-105) mg/dL 05/15/17 Range/Units 06:55 POC Glucose 117 H (70-105) mg/dL Med Orders - Current: Current Medications Ascorbic Acid (Vitamin C) 500 mg PO DAILY [facility] Last Admin: 05/14/17 09:31 Dose: 500 mg Aspirin (Ecotrin) 325 mg PO BID [facility] Last Admin: 05/14/17 20:49 Dose: 325 mg Bisacodyl (Dulcolax) 5 mg PO DAILY PRN PRN Reason: Constipation Cholecalciferol (Vitamin D3) 2,000 units PO DAILY [facility] Last Admin: 05/14/17 09:32 Dose: 2,000 units Citalopram Hydrobromide (Celexa) 20 mg PO DAILY [facility] Last Admin: 05/14/17 09:32 Dose: 20 mg Cyclobenzaprine HCl (Flexeril) 10 mg PO TID PRN PRN Reason: Spasms Last Admin: 05/14/17 20:49 Dose: 10 mg Dextrose/Water (Dextrose 50% In Water) 50 ml IVPUSH ASDIRECTED PRN PRN Reason: Hypoglycemia Docusate Sodium (Colace) 100 mg PO BID [facility] Last Admin: 05/14/17 20:49 Dose: 100 mg Insulin Aspart (Novolog) 0 unit SUBCUT QIDACANDBED [facility] PRN Reason: Protocol Last Admin: 05/14/17 21:08 Dose: Not Given Magnesium Hydroxide (Milk Of Magnesia) 30 ml PO BID PRN PRN Reason: Constipation Morphine Sulfate (Morphine) 2 mg IVPUSH Q2H PRN PRN Reason: Breakthrough Pain Last Admin: 05/14/17 16:38 Dose: 2 mg Multivitamins (Thera) 1 each PO WITHBREAKFAST [facility] Last Admin: 05/15/17 06:14 Dose: 1 each Oxycodone HCl (Oxycodone) 5 mg PO Q6H PRN PRN Reason: Pain Last Admin: 05/14/17 00:42 Dose: 5 mg Oxycodone/Acetaminophen (Percocet 325-5 Mg) 1 - 2 tab PO Q4H PRN PRN Reason: Pain Last Admin: 05/15/17 06:13 Dose: 2 tab Pantoprazole Sodium (Protonix) 40 mg PO DAILY [facility] Last Admin: 05/14/17 09:32 Dose: 40 mg Senna (Senna) 8.6 mg PO BID PRN PRN Reason: Constipation Last Admin: 05/15/17 06:59 Dose: 8.6 mg Simvastatin (Zocor) 20 mg PO DAILY [facility] Last Admin: 05/14/17 09:32 Dose: 20 mg Discontinued Medications Aspirin (Aspirin) 81 mg PO DAILY [facility] Bupivacaine HCl (Marcaine 0.25%) Confirm Administered Dose 30 ml .ROUTE .STK- MED ONE Stop: 05/13/17 07:13 Last Admin: 05/13/17 10:23 Dose: 30 ml Cefazolin Sodium (Ancef) Confirm Administered Dose 2 gm .ROUTE .STK-MED ONE Stop: 05/13/17 07:13 Last Admin: 05/13/17 10:02 Dose: 2 gm Cefazolin Sodium (Ancef) Confirm Administered Dose 2 gm .ROUTE .STK-MED ONE Stop: 05/13/17 09:18 Morphine Sulfate 8 mg/Epinephrine HCl 0.3 mg/Cefuroxime Sodium 750 mg/Ketorolac Tromethamine 30 mg/Sodium Chloride 27.9 ml 0 mg .XX ONETIME ONE Stop: 05/13/17 09:01 Last Admin: 05/13/17 19:40 Dose: Not Given Diphenhydramine HCl (Benadryl) 12.5 mg IVPUSH Q6H PRN PRN Reason: pruritis Stop: 05/13/17 18:00 Diphtheria/Tetanus/Acell Pertussis (Adacel) 0.5 ml IM .ONCE ONE Stop: 05/13/17 12:40 Famotidine (Pepcid) 20 mg PO BID [facility] Fentanyl (Sublimaze) Confirm Administered Dose 100 mcg .ROUTE .STK-MED ONE Stop: 05/13/17 07:41 Lactated Ringer's (Ringers, Lactated) 1,000 mls @ 125 mls/hr IV ASDIRECTED [facility] Stop: 05/13/17 23:00 Last Admin: 05/13/17 12:04 Dose: 125 mls/hr Cefazolin Sodium/Dextrose 2 gm (/ Premix) 50 mls @ 100 mls/hr IV Q8H [facility] Stop: 05/14/17 09:29 Last Admin: 05/14/17 09:33 Dose: 100 mls/hr Lidocaine HCl (Xylocaine-Mpf 1%) Confirm Administered Dose 2 mls @ as directed .ROUTE .STK-MED ONE Stop: 05/13/17 07:43 Lidocaine HCl (Xylocaine-Mpf 1%) Confirm Administered Dose 2 mls @ as directed .ROUTE .STK-MED ONE Stop: 05/13/17 07:43 Lidocaine HCl (Xylocaine-Mpf 1%) Confirm Administered Dose 4 mls @ as directed .ROUTE .STK-MED ONE Stop: 05/13/17 09:16 Lactated Ringer's (Ringers, Lactated) Confirm Administered Dose 1,000 mls @ as directed .ROUTE .STK-MED ONE Stop: 05/13/17 09:18 Iodine (Iodine 2% Mild Tincture) Confirm Administered Dose 30 ml .ROUTE .STK- MED ONE Stop: 05/13/17 07:13 Last Admin: 05/13/17 10:14 Dose: 18 ml Ketorolac Tromethamine (Toradol) 15 mg IVPUSH Q6H PRN PRN Reason: Pain Stop: 05/13/17 16:01 Ketorolac Tromethamine (Toradol) 15 mg IVPUSH ONETIME ONE Stop: 05/14/17 00:26 Last Admin: 05/14/17 00:42 Dose: 15 mg Lidocaine/Sodium Bicarbonate (Buffered Lidocaine 1% In Ns 8.4%) 0.25 ml .XX ONETIME PRN PRN Reason: Prior to IV Start Stop: 05/13/17 18:00 Last Admin: 05/13/17 07:21 Dose: 0.25 ml Meperidine HCl (Demerol) 12.5 mg IVPUSH ONETIME PRN PRN Reason: shivering Stop: 05/14/17 11:21 Midazolam HCl (Versed 1 Mg/Ml) Confirm Administered Dose 2 mg .ROUTE .STK-MED ONE Stop: 05/13/17 07:41 Morphine Sulfate (Duramorph Pf) Confirm Administered Dose 10 mg .ROUTE .STK-MED ONE Stop: 05/13/17 07:47 Naloxone HCl (Narcan) 0.1 mg IVPUSH Q5M PRN PRN Reason: Oversedation Stop: 05/13/17 11:16 Non-Formulary Medication (Multivitamin [Poly-Vitamin]) 1 tab PO DAILY [facility] Ondansetron HCl (Zofran) Confirm Administered Dose 4 mg .ROUTE .STK-MED ONE Stop: 05/13/17 10:10 Ondansetron HCl (Zofran) 4 mg IVPUSH ONETIME PRN PRN Reason: Nausea/Vomiting Stop: 05/13/17 18:00 Propofol (Diprivan 20 Ml) Confirm Administered Dose 600 mg .ROUTE .STK-MED ONE Stop: 05/13/17 07:41 Propofol (Diprivan 20 Ml) Confirm Administered Dose 400 mg .ROUTE .STK-MED ONE Stop: 05/13/17 10:14 Sodium Chloride (Saline Flush) 10 ml FLUSH ASDIRECTED PRN PRN Reason: Keep Vein Open Stop: 05/13/17 18:00 Tranexamic Acid (Cyklokapron) Confirm Administered Dose 1,000 mg .ROUTE .STK- MED ONE Stop: 05/13/17 07:13 Last Admin: 05/13/17 10:33 Dose: 1,000 mg - Exam Wound/Incisions: dressing dry and intact General: alert, cooperative, no acute distress Lungs: Normal respiratory effort Extremities: normal pulses, no calf tenderness, other (NVS intact for BLE. Natalee's negative BLE. Independent SLR BLE. Extension at left knee improved.) - Problem List Review Problem List Initiated/Reviewed/Updated: Yes - My Orders Last 24 Hours: Active Orders 24 hr Category Date Time Status Overnight Pulse Oximetry [RC] Click To Edit Care 05/14/17 18:18 Active Respiratory Care Assess [CONS] Routine Cons 05/14/17 14:41 Ordered Ascorbic Acid [Vitamin C] Med 05/14/17 09:00 Active 500 mg PO DAILY Aspirin [Ecotrin] Med 05/14/17 09:00 Active 325 mg PO BID Cholecalciferol (Vitamin D3) [Vitamin D3] Med 05/14/17 09:00 Active 2,000 units PO DAILY Citalopram [Celexa] Med 05/14/17 09:00 Active 20 mg PO DAILY Multivitamins,Therapeutic [Thera] Med 05/14/17 07:00 Active 1 each PO WITHBREAKFAST Pantoprazole [ProTONIX] Med 05/14/17 09:00 Active 40 mg PO DAILY Simvastatin [Zocor] Med 05/14/17 09:00 Active 20 mg PO DAILY Medication Orders Ascorbic Acid (Vitamin C) 500 mg PO DAILY [facility] Last Admin: 05/14/17 09:31 Dose: 500 mg Aspirin (Ecotrin) 325 mg PO BID [facility] Last Admin: 05/14/17 20:49 Dose: 325 mg Admin: 05/14/17 09:31 Dose: 325 mg Bisacodyl (Dulcolax) 5 mg PO DAILY PRN PRN Reason: Constipation Cholecalciferol (Vitamin D3) 2,000 units PO DAILY [facility] Last Admin: 05/14/17 09:32 Dose: 2,000 units Citalopram Hydrobromide (Celexa) 20 mg PO DAILY [facility] Last Admin: 05/14/17 09:32 Dose: 20 mg Cyclobenzaprine HCl (Flexeril) 10 mg PO TID PRN PRN Reason: Spasms Last Admin: 05/14/17 20:49 Dose: 10 mg Dextrose/Water (Dextrose 50% In Water) 50 ml IVPUSH ASDIRECTED PRN PRN Reason: Hypoglycemia Docusate Sodium (Colace) 100 mg PO BID [facility] Last Admin: 05/14/17 20:49 Dose: 100 mg Admin: 05/14/17 09:33 Dose: 100 mg Admin: 05/13/17 20:43 Dose: 100 mg Insulin Aspart (Novolog) 0 unit SUBCUT QIDACANDBED [facility] PRN Reason: Protocol Last Admin: 05/14/17 21:08 Dose: Admin: 05/14/17 17:54 Dose: Not Given Admin: 05/14/17 12:56 Dose: Not Given Admin: 05/14/17 10:17 Dose: Not Given Admin: 05/13/17 22:21 Dose: Admin: 05/13/17 17:39 Dose: Magnesium Hydroxide (Milk Of Magnesia) 30 ml PO BID PRN PRN Reason: Constipation Morphine Sulfate (Morphine) 2 mg IVPUSH Q2H PRN PRN Reason: Breakthrough Pain Last Admin: 05/14/17 16:38 Dose: 2 mg Admin: 05/14/17 10:20 Dose: 2 mg Admin: 05/14/17 01:36 Dose: 2 mg Multivitamins (Thera) 1 each PO WITHBREAKFAST [facility] Last Admin: 05/15/17 06:14 Dose: 1 each Admin: 05/14/17 10:20 Dose: 1 each Admin: 05/14/17 05:39 Dose: 1 each Oxycodone HCl (Oxycodone) 5 mg PO Q6H PRN PRN Reason: Pain Last Admin: 05/14/17 00:42 Dose: 5 mg Oxycodone/Acetaminophen (Percocet 325-5 Mg) 1 - 2 tab PO Q4H PRN PRN Reason: Pain Last Admin: 05/15/17 06:13 Dose: 2 tab Admin: 05/15/17 01:27 Dose: 2 tab Admin: 05/14/17 21:44 Dose: 2 tab Admin: 05/14/17 17:36 Dose: 2 tab Admin: 05/14/17 13:38 Dose: 2 tab Admin: 05/14/17 09:29 Dose: 2 tab Admin: 05/14/17 05:39 Dose: 2 tab Admin: 05/13/17 21:48 Dose: 2 tab Admin: 05/13/17 18:02 Dose: 2 tab Pantoprazole Sodium (Protonix) 40 mg PO DAILY [facility] Last Admin: 05/14/17 09:32 Dose: 40 mg Senna (Senna) 8.6 mg PO BID PRN PRN Reason: Constipation Last Admin: 05/15/17 06:59 Dose: 8.6 mg Simvastatin (Zocor) 20 mg PO DAILY [facility] Last Admin: 05/14/17 09:32 Dose: 20 mg - Assessment Assessment (Free Text/Narrative):: POD#2 - right TKA and left knee manipulation - Plan Plan (Free Text/Narrative):: 1. Discharge to home today. 2. 325mg ASA BID, TEDs, frequent mobility. 3. Outpatient P.T. - the pt is in agreement to attending. 4. Further orders per Hospitalist service. The pt's case was discussed with Dr. Chapman.
[2017-05-15] MEDS: Docusate Sodium 100 MG Cap PO SCH (08:53)
[2017-05-15] MEDS: Pantoprazole 40 MG Tab.CR PO SCH (08:53)
[2017-05-15] MEDS: Cholecalciferol (Vitamin D3) 1,000 Unit Tab PO SCH (08:53)
[2017-05-15] MEDS: Ascorbic Acid 500 MG Tab PO SCH (08:53)
[2017-05-15] MEDS: Aspirin 325 MG Tab.EC PO SCH (08:53)
[2017-05-15 08:54] VITALS: BP 149/79
[2017-05-15] MEDS: Simvastatin 20 MG Tab PO SCH (08:54)
[2017-05-15] MEDS: Citalopram 20 MG Tab PO SCH (08:54)
--- NOTE | 2017-05-15 09:04 | PCM.CONSN ---
- General Info Date of Service: 05/15/17 Admission Dx/Problem (Free Text): Admission Diagnosis/Problem Admission Diagnosis/Problem Osteoarthritis of knee POD #2 Rt TKA Patient is seen with Hill Hairston PA-C with Orthopedics this morning. Doing well, pain under better control. Slept well, no nausea. Ready and anxious for dc home today. Functional Status: Reports: pain controlled, tolerating diet, ambulating, urinating. Denies: new symptoms - Review of Systems General: Reports: No Symptoms HEENT: Reports: no symptoms Pulmonary: Reports: no symptoms Cardiovascular: Reports: No Symptoms Gastrointestinal: Reports: No symptoms Genitourinary: Reports: no symptoms Musculoskeletal: Reports: leg pain Skin: Reports: no symptoms Neurological: Reports: No Symptoms Psychiatric: Reports: no symptoms - Patient Data Vitals - most recent: Last Vital Signs Temp 98.2 F 05/15/17 08:49 Pulse 76 05/15/17 08:49 Resp 12 05/15/17 08:49 BP 149/79 H 05/15/17 08:49 Pulse Ox 96 05/15/17 08:55 Weight - most recent: 267 lb I&O - last 24 hours: Intake & Output 05/14/17 05/15/17 05/15/17 22:59 06:59 14:59 Intake Total 750 800 Output Total 400 975 Balance 350 -175 Lab Results last 24 hrs: Laboratory Results - last 24 hr 05/14/17 05/14/17 05/14/17 Range/Units 10:58 17:05 20:52 POC Glucose 128 H 118 H 129 H (70-105) mg/dL 05/15/17 Range/Units 06:55 POC Glucose 117 H (70-105) mg/dL Med Orders - Current: Current Medications Ascorbic Acid (Vitamin C) 500 mg PO DAILY [facility] Last Admin: 05/15/17 08:53 Dose: 500 mg Aspirin (Ecotrin) 325 mg PO BID [facility] Last Admin: 05/15/17 08:53 Dose: 325 mg Bisacodyl (Dulcolax) 5 mg PO DAILY PRN PRN Reason: Constipation Cholecalciferol (Vitamin D3) 2,000 units PO DAILY [facility] Last Admin: 05/15/17 08:53 Dose: 2,000 units Citalopram Hydrobromide (Celexa) 20 mg PO DAILY [facility] Last Admin: 05/15/17 08:54 Dose: 20 mg Cyclobenzaprine HCl (Flexeril) 10 mg PO TID PRN PRN Reason: Spasms Last Admin: 05/14/17 20:49 Dose: 10 mg Dextrose/Water (Dextrose 50% In Water) 50 ml IVPUSH ASDIRECTED PRN PRN Reason: Hypoglycemia Docusate Sodium (Colace) 100 mg PO BID [facility] Last Admin: 05/15/17 08:53 Dose: 100 mg Insulin Aspart (Novolog) 0 unit SUBCUT QIDACANDBED [facility] PRN Reason: Protocol Last Admin: 05/14/17 21:08 Dose: Not Given Magnesium Hydroxide (Milk Of Magnesia) 30 ml PO BID PRN PRN Reason: Constipation Morphine Sulfate (Morphine) 2 mg IVPUSH Q2H PRN PRN Reason: Breakthrough Pain Last Admin: 05/14/17 16:38 Dose: 2 mg Multivitamins (Thera) 1 each PO WITHBREAKFAST [facility] Last Admin: 05/15/17 06:14 Dose: 1 each Oxycodone HCl (Oxycodone) 5 mg PO Q6H PRN PRN Reason: Pain Last Admin: 05/14/17 00:42 Dose: 5 mg Oxycodone/Acetaminophen (Percocet 325-5 Mg) 1 - 2 tab PO Q4H PRN PRN Reason: Pain Last Admin: 05/15/17 06:13 Dose: 2 tab Pantoprazole Sodium (Protonix) 40 mg PO DAILY [facility] Last Admin: 05/15/17 08:53 Dose: 40 mg Senna (Senna) 8.6 mg PO BID PRN PRN Reason: Constipation Last Admin: 05/15/17 06:59 Dose: 8.6 mg Simvastatin (Zocor) 20 mg PO DAILY [facility] Last Admin: 05/15/17 08:54 Dose: 20 mg Discontinued Medications Aspirin (Aspirin) 81 mg PO DAILY [facility] Bupivacaine HCl (Marcaine 0.25%) Confirm Administered Dose 30 ml .ROUTE .STK- MED ONE Stop: 05/13/17 07:13 Last Admin: 05/13/17 10:23 Dose: 30 ml Cefazolin Sodium (Ancef) Confirm Administered Dose 2 gm .ROUTE .STK-MED ONE Stop: 05/13/17 07:13 Last Admin: 05/13/17 10:02 Dose: 2 gm Cefazolin Sodium (Ancef) Confirm Administered Dose 2 gm .ROUTE .STK-MED ONE Stop: 05/13/17 09:18 Morphine Sulfate 8 mg/Epinephrine HCl 0.3 mg/Cefuroxime Sodium 750 mg/Ketorolac Tromethamine 30 mg/Sodium Chloride 27.9 ml 0 mg .XX ONETIME ONE Stop: 05/13/17 09:01 Last Admin: 05/13/17 19:40 Dose: Not Given Diphenhydramine HCl (Benadryl) 12.5 mg IVPUSH Q6H PRN PRN Reason: pruritis Stop: 05/13/17 18:00 Diphtheria/Tetanus/Acell Pertussis (Adacel) 0.5 ml IM .ONCE ONE Stop: 05/13/17 12:40 Famotidine (Pepcid) 20 mg PO BID [facility] Fentanyl (Sublimaze) Confirm Administered Dose 100 mcg .ROUTE .STK-MED ONE Stop: 05/13/17 07:41 Lactated Ringer's (Ringers, Lactated) 1,000 mls @ 125 mls/hr IV ASDIRECTED [facility] Stop: 05/13/17 23:00 Last Admin: 05/13/17 12:04 Dose: 125 mls/hr Cefazolin Sodium/Dextrose 2 gm (/ Premix) 50 mls @ 100 mls/hr IV Q8H [facility] Stop: 05/14/17 09:29 Last Admin: 05/14/17 09:33 Dose: 100 mls/hr Lidocaine HCl (Xylocaine-Mpf 1%) Confirm Administered Dose 2 mls @ as directed .ROUTE .STK-MED ONE Stop: 05/13/17 07:43 Lidocaine HCl (Xylocaine-Mpf 1%) Confirm Administered Dose 2 mls @ as directed .ROUTE .STK-MED ONE Stop: 05/13/17 07:43 Lidocaine HCl (Xylocaine-Mpf 1%) Confirm Administered Dose 4 mls @ as directed .ROUTE .STK-MED ONE Stop: 05/13/17 09:16 Lactated Ringer's (Ringers, Lactated) Confirm Administered Dose 1,000 mls @ as directed .ROUTE .STK-MED ONE Stop: 05/13/17 09:18 Iodine (Iodine 2% Mild Tincture) Confirm Administered Dose 30 ml .ROUTE .STK- MED ONE Stop: 05/13/17 07:13 Last Admin: 05/13/17 10:14 Dose: 18 ml Ketorolac Tromethamine (Toradol) 15 mg IVPUSH Q6H PRN PRN Reason: Pain Stop: 05/13/17 16:01 Ketorolac Tromethamine (Toradol) 15 mg IVPUSH ONETIME ONE Stop: 05/14/17 00:26 Last Admin: 05/14/17 00:42 Dose: 15 mg Lidocaine/Sodium Bicarbonate (Buffered Lidocaine 1% In Ns 8.4%) 0.25 ml .XX ONETIME PRN PRN Reason: Prior to IV Start Stop: 05/13/17 18:00 Last Admin: 05/13/17 07:21 Dose: 0.25 ml Meperidine HCl (Demerol) 12.5 mg IVPUSH ONETIME PRN PRN Reason: shivering Stop: 05/14/17 11:21 Midazolam HCl (Versed 1 Mg/Ml) Confirm Administered Dose 2 mg .ROUTE .STK-MED ONE Stop: 05/13/17 07:41 Morphine Sulfate (Duramorph Pf) Confirm Administered Dose 10 mg .ROUTE .STK-MED ONE Stop: 05/13/17 07:47 Naloxone HCl (Narcan) 0.1 mg IVPUSH Q5M PRN PRN Reason: Oversedation Stop: 05/13/17 11:16 Non-Formulary Medication (Multivitamin [Poly-Vitamin]) 1 tab PO DAILY [facility] Ondansetron HCl (Zofran) Confirm Administered Dose 4 mg .ROUTE .STK-MED ONE Stop: 05/13/17 10:10 Ondansetron HCl (Zofran) 4 mg IVPUSH ONETIME PRN PRN Reason: Nausea/Vomiting Stop: 05/13/17 18:00 Propofol (Diprivan 20 Ml) Confirm Administered Dose 600 mg .ROUTE .STK-MED ONE Stop: 05/13/17 07:41 Propofol (Diprivan 20 Ml) Confirm Administered Dose 400 mg .ROUTE .STK-MED ONE Stop: 05/13/17 10:14 Sodium Chloride (Saline Flush) 10 ml FLUSH ASDIRECTED PRN PRN Reason: Keep Vein Open Stop: 05/13/17 18:00 Tranexamic Acid (Cyklokapron) Confirm Administered Dose 1,000 mg .ROUTE .[employer]- Review Trackers ONE Stop: 05/13/17 07:13 Last Admin: 05/13/17 10:33 Dose: 1,000 mg - Exam Quality Assessment: DVT prophylaxis General: alert, oriented, cooperative, no acute distress HEENT: Pupils equal, Pupils reactive, EOMI, Mucous membr. moist/pink Neck: supple Lungs: Clear to auscultation, Normal respiratory effort Cardiovascular: Regular Rate, Regular Rhythm Abdomen: bowel sounds present, soft, no tenderness (Male) Exam: Deferred Extremities: other (teds bilat) Peripheral Pulses: 1+: Dorsalis Pedis (L), Dorsalis Pedis (R) Wound/Incisions: dressing dry and intact Neurological: no new focal deficit Psy/Mental Status: alert, normal affect, normal mood Consult PN Assessment/Plan POD#: 2 Procedures: Procedures ASSAY OF FERRITIN (05/03/17) ASSAY OF PREALBUMIN (05/03/17) ASSAY THYROID STIM HORMONE (07/07/16) CHEST X-RAY 2VW FRONTAL&LATL (10/12/16) COMPLETE CBC AUTOMATED (10/09/16) COMPLETE CBC W/AUTO DIFF WBC (05/03/17) COMPREHEN METABOLIC PANEL (05/03/17) CT HEAD/BRAIN W/O DYE (11/29/16) CT NECK SPINE W/O DYE (11/29/16) ELECTRICAL STIMULATION (11/02/16) EMERGENCY DEPT VISIT (11/29/16) GAIT TRAINING THERAPY (11/02/16) GLYCOSYLATED HEMOGLOBIN TEST (05/03/17) LIPID PANEL (07/07/16) MANUAL THERAPY 1/> REGIONS (11/02/16) MEASURE BLOOD OXYGEN LEVEL (07/29/15) MR-STAPH DNA AMP PROBE (10/09/16) NEUROMUSCULAR REEDUCATION (11/02/16) PROTHROMBIN TIME (05/03/17) PT EVALUATION (11/02/16) ROUTINE VENIPUNCTURE (05/03/17) THER/PROPH/DIAG INJ SC/IM (11/29/16) THERAPEUTIC EXERCISES (11/02/16) THROMBOPLASTIN TIME PARTIAL (05/03/17) URINALYSIS AUTO W/SCOPE (10/09/16) VIT D 1 25-DIHYDROXY (10/12/16) VITAMIN D 25 HYDROXY (05/03/17) X-RAY EXAM KNEE 4 OR MORE (09/14/16) X-RAY EXAM OF KNEE 3 (11/29/16) (1) S/P total knee arthroplasty SNOMED Code(s): 0635509717144, 919119010, 6660948033983 Code(s): Z96.659 - PRESENCE OF UNSPECIFIED ARTIFICIAL KNEE JOINT Priority: High Current Visit: Yes Qualifiers: Laterality: right Qualified Code(s): Z96.651 - Presence of right artificial knee joint (2) Osteoarthritis SNOMED Code(s): 888917173 Code(s): M19.90 - UNSPECIFIED OSTEOARTHRITIS, UNSPECIFIED SITE Priority: High Current Visit: Yes Qualifiers: Osteoarthritis location: knee Osteoarthritis type: primary Laterality: right Qualified Code(s): M17.11 - Unilateral primary osteoarthritis, right knee (3) Diabetes type 2, controlled SNOMED Code(s): 13180276 Code(s): E11.9 - TYPE 2 DIABETES MELLITUS WITHOUT COMPLICATIONS Priority: Medium Current Visit: Yes Qualifiers: Diabetes mellitus complication status: without complication Diabetes mellitus computer terminal operator insulin use: without computer terminal operator use Qualified Code(s): E11.9 - Type 2 diabetes mellitus without complications (4) Hyperlipidemia SNOMED Code(s): 85748942 Code(s): E78.5 - HYPERLIPIDEMIA, UNSPECIFIED Priority: Medium Current Visit: No Qualifiers: Hyperlipidemia type: unspecified Qualified Code(s): E78.5 - Hyperlipidemia , unspecified (5) Anxiety SNOMED Code(s): 58214422 Code(s): F41.9 - ANXIETY DISORDER, UNSPECIFIED Priority: Medium Current Visit: No (6) Chronic back pain SNOMED Code(s): 906678042 Code(s): M54.9 - DORSALGIA, UNSPECIFIED; G89.29 - OTHER CHRONIC PAIN Priority: Medium Current Visit: No Qualifiers: Back pain location: back pain in unspecified location Problem List Initiated/Reviewed/Updated: Yes My Orders last 24 hours: My Active Orders 05/14/17 09:00 Ascorbic Acid [Vitamin C] 500 mg PO DAILY Cholecalciferol (Vitamin D3) [Vitamin D3] 2,000 units PO DAILY Citalopram [Celexa] 20 mg PO DAILY Pantoprazole [ProTONIX] 40 mg PO DAILY Simvastatin [Zocor] 20 mg PO DAILY 05/14/17 14:41 Respiratory Care Assess [CONS] Routine Plan: I/P: POD #2; Lt TKA with Dr. Chapman -Pain management and DVT prophylax per Orthopedics -PT/OT -IS/RT -Doing well Chronic conditions: DM- hold metformin during hospital stay, will use SSI- resume metformin on DC HLD- cont home meds GERBER, cont with home CPAP--hypoxic overnight, needed supplemental O2 bled into CPAP overnight. Recommend overnight oximetry study vs repeat Sleep Study---will recommend f/up with PCP within one week of dc to discuss repeat sleep study for titrations and oxygen needs. Depression/anxiety- cont home meds Chronic LBP Other: CM/SW for assist with DC planning- plans DC home with family to assist---home today. Medically stable for discharge from Hospitalist standpoint. GI prophylax Patient is Full Code status.
[2017-05-15] MEDS: oxyCODONE 5 MG Tab PO PRN (09:14)
[2017-05-15] MEDS: Insulin Aspart 100 Units/ML 3 ML Pen SUBCUT SCH ×2 (19:28→19:29)
--- NOTE | 2017-05-16 13:03 | PCM.DCSUM1 ---
Discharge Summary - Hospital Course Brief History: Naveen is a 51 yo male who underwent right TKA and left knee manipulation with Dr. Chapman on 05-13-2017 . The procedure was completed under spinal anesthesia. The pt tolerated the procedure well and was admitted to the Medical-Surgical Unit. Medical management was provided by the Hospitalist service. The pt had an overnight oximetry study ordered due to hx of CPAP use and desaturation at HS. The pt's Hgb on POD#1 was 12.9. On POD#1, 325mg BID was initiated for VTE prophylaxis. SCDs and TEDs were also ordered. A Mepilex dressing was placed at the incision site at the time of surgery and remained clean and dry. The pt participated in P.T. and O.T. and progressed well. On POD#2, the pt was deemed appropriate to discharge to home with his . - Discharge Data Discharge Date: 05/15/17 Discharge Disposition: Home, Self-Care 01 Condition: Good - Patient Summary/Data Consults: Consultations 05/13/17 07:00 Consult to Physician [CONS] Routine OT Evaluation and Treatment [CONS] Routine 05/13/17 07:07 PT Evaluation and Treatment [CONS] Routine 05/14/17 14:41 Respiratory Care Assess [CONS] Routine - Patient Instructions Diet: Usual Diet as Tolerated Activity: Apply Ice, As Tolerated, Elevate Extremity, Full Weight Bearing Driving: Do Not Drive Showering/Bathing: May Shower Wound/Incision Care: Keep Operative Site/Wound Site Clean and Dry, Do NOT Change Dressing Notify Provider of: Fever, Increased Pain, Swelling and Redness, Drainage, Nausea and/or Vomiting Other/Special Instructions: Please get up and moving around every hour while awake. This helps to prevent blood clots. Please use your walker and have help with mobility as needed. Please take a 325mg ASPIRIN TWICE DAILY. This also helps to prevent blood clots. You may schedule for P.T. Use the pain medication as needed. The medication may cause drowsiness and constipation. Contact your primary care provider for instructions if you are constipated. You may use a stool softener like docusate sodium or Colace 100mg twice daily and/or a laxative like Miralax daily for constipation. Wear the TIGRE hose during the day and you may remove these at night. Place ice to the knee often. Place a towel between your skin and the blue pad. Schedule an appointment with your primary care provider for 'routine post-op care'. Keep the Mepilex dressing in place until follow-up. Call the Clinic with questions or concerns - [phone]. - Discharge Plan Prescriptions/Med Rec: Acetaminophen/oxyCODONE [Percocet 325-5 MG] 1 - 2 tab PO Q4H PRN #60 tablet PRN Reason: Pain Aspirin [Ecotrin] 325 mg PO BID #84 tab.ec Cyclobenzaprine [Flexeril] 10 mg PO TID PRN #40 tablet PRN Reason: muscle spasms oxyCODONE 5 mg PO Q6H PRN #30 tablet PRN Reason: Pain Home Medications: Home Meds Cholecalciferol (Vitamin D3) [Vitamin D3] 2,000 unit PO DAILY 10/12/16 [History] Citalopram [Celexa] 20 mg PO DAILY 10/12/16 [History] Multivitamin [Poly-Vitamin] 1 tab PO DAILY 10/12/16 [History] Ranitidine [Zantac] 150 mg PO BID 10/12/16 [History] metFORMIN HCl [Metformin HCl] 1,000 mg PO BID 10/12/16 [History] Omeprazole 20 mg PO DAILY 10/15/16 [History] Gluc 2KCl/Chondr/Charlene Hy/Hy Ac [Glucosamine & Chondroitin Cap] 1 tab PO DAILY [History] atorvaSTATin [Lipitor] 20 mg PO DAILY 05/10/17 [History] Ascorbate Calcium/Bioflavonoid [Sandra-C 1,000 mg Tablet] 1 each PO DAILY [History] Acetaminophen/oxyCODONE [Percocet 325-5 MG] 1 - 2 tab PO Q4H PRN #60 tablet 10/20 [Rx] Aspirin [Ecotrin] 325 mg PO BID #84 tab.ec 05/15/17 [Rx] Cyclobenzaprine [Flexeril] 10 mg PO TID PRN #40 tablet 05/15/17 [Rx] oxyCODONE 5 mg PO Q6H PRN #30 tablet 05/15/17 [Rx] Patient Handouts: Total Knee Replacement, Care After, [id number]-Kcpd, Total Knee Replacement, [id number]-Rfet, Aspirin, ASA oral tablets, Knee Rehabilitation Guidelines Following Surgery Referrals: Anna Hairston PA-C [Physician Research Technologist] - (Please see Anna Hairston on at 10:15 AM and on 05/28/17 at 10:00 AM.) Rell,BEAR Pelayo [Primary Care Provider] - 05/23/17 11:00 am (Please see Angelica Samples on at 11:00 AM on 05/23/17. ) - Patient Data Vitals - Most Recent: Last Vital Signs Temp 98.2 F 05/15/17 08:49 Pulse 76 05/15/17 08:49 Resp 12 05/15/17 08:49 BP 149/79 H 05/15/17 08:49 Pulse Ox 93 L 05/15/17 09:08 Weight - Most Recent: 267 lb Med Orders - Current: Current Medications Discontinued Medications Ascorbic Acid (Vitamin C) 500 mg PO DAILY [facility] Last Admin: 05/15/17 08:53 Dose: 500 mg Aspirin (Ecotrin) 325 mg PO BID [facility] Last Admin: 05/15/17 08:53 Dose: 325 mg Aspirin (Aspirin) 81 mg PO DAILY [facility] Bisacodyl (Dulcolax) 5 mg PO DAILY PRN PRN Reason: Constipation Bupivacaine HCl (Marcaine 0.25%) Confirm Administered Dose 30 ml .ROUTE .STK- MED ONE Stop: 05/13/17 07:13 Last Admin: 05/13/17 10:23 Dose: 30 ml Cefazolin Sodium (Ancef) Confirm Administered Dose 2 gm .ROUTE .STK-MED ONE Stop: 05/13/17 07:13 Last Admin: 05/13/17 10:02 Dose: 2 gm Cefazolin Sodium (Ancef) Confirm Administered Dose 2 gm .ROUTE .STK-MED ONE Stop: 05/13/17 09:18 Cholecalciferol (Vitamin D3) 2,000 units PO DAILY [facility] Last Admin: 05/15/17 08:53 Dose: 2,000 units Citalopram Hydrobromide (Celexa) 20 mg PO DAILY [facility] Last Admin: 05/15/17 08:54 Dose: 20 mg Morphine Sulfate 8 mg/Epinephrine HCl 0.3 mg/Cefuroxime Sodium 750 mg/Ketorolac Tromethamine 30 mg/Sodium Chloride 27.9 ml 0 mg .XX ONETIME ONE Stop: 05/13/17 09:01 Last Admin: 05/13/17 19:40 Dose: Not Given Cyclobenzaprine HCl (Flexeril) 10 mg PO TID PRN PRN Reason: Spasms Last Admin: 05/14/17 20:49 Dose: 10 mg Dextrose/Water (Dextrose 50% In Water) 50 ml IVPUSH ASDIRECTED PRN PRN Reason: Hypoglycemia Diphenhydramine HCl (Benadryl) 12.5 mg IVPUSH Q6H PRN PRN Reason: pruritis Stop: 05/13/17 18:00 Diphtheria/Tetanus/Acell Pertussis (Adacel) 0.5 ml IM .ONCE ONE Stop: 05/13/17 12:40 Last Admin: 05/15/17 11:05 Dose: 0.5 ml Docusate Sodium (Colace) 100 mg PO BID [facility] Last Admin: 05/15/17 08:53 Dose: 100 mg Famotidine (Pepcid) 20 mg PO BID [facility] Fentanyl (Sublimaze) Confirm Administered Dose 100 mcg .ROUTE .STK-MED ONE Stop: 05/13/17 07:41 Lactated Ringer's (Ringers, Lactated) 1,000 mls @ 125 mls/hr IV ASDIRECTED [facility] Stop: 05/13/17 23:00 Last Admin: 05/13/17 12:04 Dose: 125 mls/hr Cefazolin Sodium/Dextrose 2 gm (/ Premix) 50 mls @ 100 mls/hr IV Q8H [facility] Stop: 05/14/17 09:29 Last Admin: 05/14/17 09:33 Dose: 100 mls/hr Lidocaine HCl (Xylocaine-Mpf 1%) Confirm Administered Dose 2 mls @ as directed .ROUTE .STK-MED ONE Stop: 05/13/17 07:43 Lidocaine HCl (Xylocaine-Mpf 1%) Confirm Administered Dose 2 mls @ as directed .ROUTE .STK-MED ONE Stop: 05/13/17 07:43 Lidocaine HCl (Xylocaine-Mpf 1%) Confirm Administered Dose 4 mls @ as directed .ROUTE .STK-MED ONE Stop: 05/13/17 09:16 Lactated Ringer's (Ringers, Lactated) Confirm Administered Dose 1,000 mls @ as directed .ROUTE .STK-MED ONE Stop: 05/13/17 09:18 Insulin Aspart (Novolog) 0 unit SUBCUT QIDACANDBED [facility] PRN Reason: Protocol Last Admin: 05/15/17 19:29 Dose: Not Given Iodine (Iodine 2% Mild Tincture) Confirm Administered Dose 30 ml .ROUTE .STK- MED ONE Stop: 05/13/17 07:13 Last Admin: 05/13/17 10:14 Dose: 18 ml Ketorolac Tromethamine (Toradol) 15 mg IVPUSH Q6H PRN PRN Reason: Pain Stop: 05/13/17 16:01 Ketorolac Tromethamine (Toradol) 15 mg IVPUSH ONETIME ONE Stop: 05/14/17 00:26 Last Admin: 05/14/17 00:42 Dose: 15 mg Lidocaine/Sodium Bicarbonate (Buffered Lidocaine 1% In Ns 8.4%) 0.25 ml .XX ONETIME PRN PRN Reason: Prior to IV Start Stop: 05/13/17 18:00 Last Admin: 05/13/17 07:21 Dose: 0.25 ml Magnesium Hydroxide (Milk Of Magnesia) 30 ml PO BID PRN PRN Reason: Constipation Last Admin: 05/15/17 09:14 Dose: 30 ml Meperidine HCl (Demerol) 12.5 mg IVPUSH ONETIME PRN PRN Reason: shivering Stop: 05/14/17 11:21 Midazolam HCl (Versed 1 Mg/Ml) Confirm Administered Dose 2 mg .ROUTE .STK-MED ONE Stop: 05/13/17 07:41 Morphine Sulfate (Morphine) 2 mg IVPUSH Q2H PRN PRN Reason: Breakthrough Pain Last Admin: 05/14/17 16:38 Dose: 2 mg Morphine Sulfate (Duramorph Pf) Confirm Administered Dose 10 mg .ROUTE .STK-MED ONE Stop: 05/13/17 07:47 Multivitamins (Thera) 1 each PO WITHBREAKFAST [facility] Last Admin: 05/15/17 06:14 Dose: 1 each Naloxone HCl (Narcan) 0.1 mg IVPUSH Q5M PRN PRN Reason: Oversedation Stop: 05/13/17 11:16 Non-Formulary Medication (Multivitamin [Poly-Vitamin]) 1 tab PO DAILY [facility] Ondansetron HCl (Zofran) Confirm Administered Dose 4 mg .ROUTE .STK-MED ONE Stop: 05/13/17 10:10 Ondansetron HCl (Zofran) 4 mg IVPUSH ONETIME PRN PRN Reason: Nausea/Vomiting Stop: 05/13/17 18:00 Oxycodone HCl (Oxycodone) 5 mg PO Q6H PRN PRN Reason: Pain Last Admin: 05/15/17 09:14 Dose: 5 mg Oxycodone/Acetaminophen (Percocet 325-5 Mg) 1 - 2 tab PO Q4H PRN PRN Reason: Pain Last Admin: 05/15/17 11:15 Dose: 2 tab Pantoprazole Sodium (Protonix) 40 mg PO DAILY [facility] Last Admin: 05/15/17 08:53 Dose: 40 mg Propofol (Diprivan 20 Ml) Confirm Administered Dose 600 mg .ROUTE .STK-MED ONE Stop: 05/13/17 07:41 Propofol (Diprivan 20 Ml) Confirm Administered Dose 400 mg .ROUTE .STK-MED ONE Stop: 05/13/17 10:14 Senna (Senna) 8.6 mg PO BID PRN PRN Reason: Constipation Last Admin: 05/15/17 06:59 Dose: 8.6 mg Simvastatin (Zocor) 20 mg PO DAILY [facility] Last Admin: 05/15/17 08:54 Dose: 20 mg Sodium Chloride (Saline Flush) 10 ml FLUSH ASDIRECTED PRN PRN Reason: Keep Vein Open Stop: 05/13/17 18:00 Tranexamic Acid (Cyklokapron) Confirm Administered Dose 1,000 mg .ROUTE .STK- MED ONE Stop: 05/13/17 07:13 Last Admin: 05/13/17 10:33 Dose: 1,000 mg *Q Meaningful Use (DIS) - VTE *Q VTE Criteria *Q: - Stroke *Q Stroke Criteria *Q: - AMI *Q AMI Criteria *Q:
--- NOTE | 2017-05-20 22:25 | PCM.OPNOTE ---
- General Post-Op/Procedure Note Date of Surgery/Procedure: 05/13/17 Operative Procedure(s): right total knee arthroplasty with left total knee manipulation under anesthesia Pre Op Diagnosis: right knee osteoarthrosis with arthrofibrosis left knee Post-Op Diagnosis: Same Anesthesia Technique: Local, MAC, Spinal Primary Surgeon: Estevan Chapman Secondary Surgeon: Jeremias Schilling Integration Engineer: Anna Hairston Integration Engineer: Daniela Garzon EBL in mLs: 300 Complications: None Condition: Good
--- NOTE | 2017-05-20 23:11 | OR ---
DATE OF OPERATION: 05/13/2017 SURGEON: Estevan Chapman MD OPERATION PERFORMED: 1. Right total knee arthroplasty. 2. Left total knee manipulation under anesthesia. PREOPERATIVE DIAGNOSIS: Right knee osteoarthrosis with arthrofibrosis of left knee. POSTOPERATIVE DIAGNOSIS: Right knee osteoarthrosis with arthrofibrosis of left knee. ANESTHESIA: Local MAC with spinal. ANESTHESIA PROVIDER: Dr. Jeremias Schilling. HAND PACKER: Anna Hairston PA-C and Daniela Garzon LPN. ESTIMATED BLOOD LOSS: 300 mL COMPLICATIONS: None. CONDITION: Stable. IMPLANTS: 1. Cassandra size 5 PS femur. 2. Hertel size 5 universal tibial baseplate. 3. Hertel size 5, 9 mm PS X3 polyethylene. 4. Hertel 32 x 10 mm asymmetric patella. DESCRIPTION OF PROCEDURE: The patient was identified in the preop holding area. Proper site was marked and identified by the surgeon. The patient was taken back to the operating theater. The left knee was manipulated under anesthesia. The patient was lacking roughly 10 degrees of extension. Had flexion to roughly 100 degrees. At this time, the left knee was manipulated and were able to get him from 6-118 degrees without difficulty. At this time, the patient had hard stopped motion and we began to start for the right total knee arthroplasty at that time. After adequate anesthesia, the patient's right lower extremity had a nonsterile tourniquet applied and it was then sterilely prepped and draped in the usual sterile fashion. OR timeout was performed. The patient received 2 g IV Ancef. At this time, right lower extremity was exsanguinated. Tourniquet was insufflated to 300 mmHg. Standard medial parapatellar incision was made. Medial parapatellar arthrotomy was created. Deep fibers of the MCL were raised and anterior fat pad was resected. At this time, attention was turned to the patella. Patella measured 25, it was resected to a 15 for a 32 x 10 mm patella. Drill holes were then drilled and found to be in adequate position. The drill was then drilled in the distal femur and the intramedullary distal femoral cutting guide was then placed. 8 mm was resected off the distal femur and was found to be an adequate resection. Sizing guide was placed. It was found to be a size 5 PS femur that was shown on the implant record at the beginning of this dictation. The drill holes were drilled for the epicondylar axis using Whitesides line and epicondyles as reference. At this time, the 4-in-1 cutting block was placed. An anterior posterior and anterior and posterior chamfer cuts were then completed. The correct size box cut was then placed and the box cut was completed and found to be an adequate resection. Attention was turned to the tibia. The posterior medial lateral retractors were placed. The extramedullary tibial guide was placed. It was placed in the old footprint of the ACL. It was aligned with the center of the ankle and 0 degrees of slope, 9 mm was then resected off the unaffected lateral side. There was found to be an acceptable reduction. At this time, posterior osteophytes were removed along with medial and lateral meniscus. A trial implant was placed with a correct sized tibia that was mentioned at the beginning of the dictation. A 9-mm trial spacer was placed and a 9 mm X3 polyethylene was then placed. The patient's knee was brought through range of motion. The patella was tracking centrally and was stable to varus and valgus stress. Alignment was found to be roughly at 0 degrees. At this time, cement was mixed on the back table. The tibia was stamped and drilled in proper rotation. All cut surfaces were irrigated with pulse lavage irrigation with Ancef and then completely dried. Once this was completed, then the cement was ready. The universal tibial base plate was cemented in place. Next, the 5 PS femur cemented into place and the 9 mm X3 polyethylene was placed. The patient's knee was brought into full extension. Excess cement was removed. The patella was then cemented in place at this time. Tourniquet was deflated. One liter dilute Betadine solution was irrigated through the knee along with 3 L of pulse lavage irrigation with Ancef. Periarticular injection was then completed. The patient's knee was brought through a range of motion. Once the cement had time to set up and it was found to be stable to varus valgus stress, the patella was tracking centrally with full range of motion. At this time, a #2 barbed suture was used for closure of the medial parapatellar arthrotomy. Topical tranexamic acid was placed. 2-0 Vicryl was used subcutaneously, a running 3-0 Monocryl was used subcuticularly. The patient tolerated the procedure well and was sent to the PACU in stable condition. ZAYNAB /[id number]
== END 2017-05-15 11:35 | disposition home or self-care (01) | DRG 302 ==
LOC: JD.OB 06:57 → JD.MS 08:32
PROVIDERS: ADMIT Orthopaedic Surgery; ATTEND Orthopaedic Surgery
PROC: 0SRC0J9 Replacement of Right Knee Joint with Synthetic Substitute, Cemented, Open Approach (ICD-10-PCS; principal; 2017-05-13)
PROC: 0SSCXZZ Reposition Right Knee Joint, External Approach (ICD-10-PCS; 2017-05-13)
DX: M17.11 Unilateral primary osteoarthritis, right knee (principal); M24.662 Ankylosis, left knee; F41.9 Anxiety disorder, unspecified; F32.9 Major depressive disorder, single episode, unspecified; K21.9 Gastro-esophageal reflux disease without esophagitis; E78.00 Pure hypercholesterolemia, unspecified; R73.01 Impaired fasting glucose; G47.30 Sleep apnea, unspecified; E11.9 Type 2 diabetes mellitus without complications; Z79.84 Long term (current) use of oral hypoglycemic drugs; Z88.8 Allergy status to other drugs, medicaments and biological substances; Z79.82 Long term (current) use of aspirin; Z79.899 Other long term (current) drug therapy
CPT/HCPCS: 01402; 36415; 73560-26-RT; 73560-RT; 80053; 82962; 85025; 87641; 90715; 94761; 94762; 97110-GP; 97116-GP; 97162-GP; 97166-GO; 97535-GO; 99222; 99231; A9270-GY; C1713; C1776; J0171; J0690; J0697; J1885; J2250; J2270; J2405; J2704; J3010; J3490; J7120

== ENCOUNTER 2018-07-02 15:43 | Observation (INO) | payer BC, OTHER ==
[2018-07-02] MEDS ORDERED: Ondansetron 4 MG/2 ML SDV IVPUSH ONE ×2 (16:16→17:24)
[2018-07-02] MEDS ORDERED: Sodium Chloride 0.9% 1,000 ML IV SCH (16:30)
[2018-07-02] MEDS ORDERED: HYDROmorphone 1 MG/ML Syringe IVPUSH ONE (17:14)
[2018-07-02] MEDS ORDERED: Sodium Chloride 0.9% 10 ML Syringe FLUSH PRN ×2 (17:24→19:00)
--- NOTE | 2018-07-02 18:26 | EDM.PDOC ---
ED HPI GENERAL MEDICAL PROBLEM - General Chief Complaint: Abdominal Pain Stated Complaint: STOMACH PAIN Time Seen by Provider: 07/02/18 17:00 Source of Information: Reports: Patient History Limitations: Reports: No Limitations - History of Present Illness INITIAL COMMENTS - FREE TEXT/NARRATIVE: 52 year old male presents for evaluation and treatment of abdominal pain. Patient reports the abdominal pain started suddenly last night while he was sleeping, pain woke him from sleep. States it was initially located around his umbilical area. He attempted to go to work today but had difficulty due to the pain. Reports movement greatly worsens the pain. He states his pain is now radiating throughout his entire abdomen, reports the lower abdomen is most painful at this time. He reports so states symptoms of nausea, vomiting and decreased appetite. States he's vomited more than 10 times today. States he is not passing any gas. He did have one loose stool today, no blood in his stool. He denies any previous abdominal surgeries. Had a colonoscopy at age 49, no reported abnormal findings Patient reports he is not a diabetic but is on metformin for elevated fasting blood sugars.. Primary care provider is Mary Sampson. Last intake was around 0600 this morning. lower abdomen Pain Score (Numeric/FACES): 10 - Related Data Allergies Allergy/AdvReac Type Severity Reaction Status Date / Time codeine Allergy Anaphylactic Verified 07/02/18 16:02 Shock Home Meds: Home Meds Cholecalciferol (Vitamin D3) [Vitamin D3] 2,000 unit PO DAILY 10/12/16 [History] Citalopram [Celexa] 20 mg PO DAILY 10/12/16 [History] Ranitidine [Zantac] 150 mg PO BID 10/12/16 [History] metFORMIN HCl [Metformin HCl] 1,000 mg PO BID 10/12/16 [History] atorvaSTATin [Lipitor] 20 mg PO DAILY 05/10/17 [History] Aspirin [Ecotrin] 81 mg PO DAILY 07/02/18 [History] Past Medical History HEENT History: Reports: None Cardiovascular History: Reports: High Cholesterol Respiratory History: Reports: Sleep Apnea Gastrointestinal History: Reports: GERD Genitourinary History: Reports: None BIOSECURITY OFFICER History: Reports: Other (See Below) Other BIOSECURITY OFFICER History: degenerative joint disease Musculoskeletal History: Reports: Osteoarthritis, Other (See Below) Other Musculoskeletal History: Degenerative joint disease Neurological History: Reports: Other (See Below) Other Neuro History: short term memory loss Psychiatric History: Reports: Anxiety, Depression Endocrine/Metabolic History: Reports: Other (See Below) Other Endocrine/Metabolic History: Impaired fasting glucose Hematologic History: Reports: None Immunologic History: Reports: None Oncologic (Cancer) History: Reports: None Dermatologic History: Reports: None Other Dermatologic History: dryness to scalp - Past Surgical History HEENT Surgical History: Reports: Tonsillectomy, Other (See Below) Cardiovascular Surgical History: Reports: None Respiratory Surgical History: Reports: None GI Surgical History: Reports: Colonoscopy Male Surgical History: Reports: None Neurological Surgical History: Reports: Discectomy Musculoskeletal Surgical History: Reports: Knee Replacement, Other (See Below) Other Musculoskeletal Surgeries/Procedures:: Left total knee replacement, low back surgery, cervical anterior diskectomy Dermatological Surgical History: Reports: None Social & Family History - Family History Family Medical History: Noncontributory - Tobacco Use Smoking Status *Q: Never Smoker - Caffeine Use Caffeine Use: Reports: Coffee Other Caffeine Use: 1/day - Recreational Drug Use Recreational Drug Use: No ED ROS GENERAL - Review of Systems Review Of Systems: See Below Constitutional: Reports: Decreased Appetite GI/Abdominal: Reports: Abdominal Pain (diffuse, greatest in the lower abdomen), Nausea, Vomiting (more than 10 episodes today). Denies: Bloody Stool, Diarrhea ED EXAM, GI/ABD - Physical Exam Exam: See Below Exam Limited By: No Limitations General Appearance: Alert, WD/WN, Moderate Distress, Obese Throat/Mouth: Normal Inspection Respiratory/Chest: No Respiratory Distress, Lungs Clear, Normal Breath Sounds Cardiovascular: Normal Peripheral Pulses, Regular Rate, Rhythm, No Murmur GI/Abdominal Exam: Guarding, Rebound, Tender (diffuse, lower abdomen >>> upper abdomen; pain at m[place]urnies point), Other (hypoactive bowel sounds) Neurological: Alert, Oriented, Normal Cognition Psychiatric: Normal Affect, Normal Mood Skin Exam: Warm, Dry, Normal Color Course - Vital Signs Last Recorded V/S: Last Vital Signs Temp 98.2 F 07/02/18 15:58 Pulse 77 07/02/18 15:58 Resp 26 H 07/02/18 15:58 BP 159/93 H 07/02/18 15:58 Pulse Ox 99 07/02/18 15:58 - Orders/Labs/Meds Orders: Active Orders 24 hr Category Date Time Status Peripheral IV Care [RC] . DIRECTED Care 07/02/18 17:24 Active Nothing Per Oral Diet [DIET] Diet 07/03/18 Breakfast Ordered Abdomen 2V AP Flat Upright [CR] Stat Exams 07/02/18 16:14 Taken Abdomen Pelvis w Cont [CT] Stat Exams 07/02/18 17:24 Ordered UA W/MICROSCOPIC [URIN] Stat Lab 07/02/18 19:10 Ordered HYDROmorphone [Dilaudid] Med 07/02/18 20:38 Ordered 0.5 mg IVPUSH Q2H PRN Lactated Ringers [Ringers, Lactated] 1,000 ml Med 07/02/18 20:38 Ordered IV .BOLUS Ondansetron [Zofran] Med 07/02/18 20:38 Ordered 4 mg IVPUSH Q6H PRN Piperacillin/Tazobactam [Zosyn] 4.5 gm Med 07/02/18 20:45 Ordered Sodium Chloride 0.9% [Normal Saline] 100 ml IV Q8H Sodium Chloride 0.9% [Normal Saline] 1,000 ml Med 07/02/18 16:30 Active IV ASDIRECTED Sodium Chloride 0.9% [Saline Flush] Med 07/02/18 17:24 Active 10 ml FLUSH ASDIRECTED PRN Sodium Chloride 0.9% [Saline Flush] Med 07/02/18 19:00 Active 10 ml FLUSH ONETIME PRN Peripheral IV Insertion Adult [OM.PC] Routine Oth 07/02/18 17:24 Ordered Code Status [Resuscitation Status] Stat Resus Stat 07/02/18 20:40 Ordered Medication Orders Hydromorphone HCl (Dilaudid) 0.5 mg IVPUSH Q2H PRN PRN Reason: Pain Sodium Chloride (Normal Saline) 1,000 mls @ 150 mls/hr IV ASDIRECTED FREDIS Last Admin: 07/02/18 16:24 Dose: 150 mls/hr Lactated Ringer's (Ringers, Lactated) 1,000 mls @ 120 mls/hr IV .BOLUS ONE Stop: 07/03/18 04:57 Piperacillin Sod/Tazobactam (Sod 4.5 gm/ Sodium Chloride) 100 mls @ 25 mls/hr IV Q8H FREDIS Ondansetron HCl (Zofran) 4 mg IVPUSH Q6H PRN PRN Reason: Nausea Sodium Chloride (Saline Flush) 10 ml FLUSH ASDIRECTED PRN PRN Reason: Keep Vein Open Last Admin: 07/02/18 17:52 Dose: 10 ml Sodium Chloride (Saline Flush) 10 ml FLUSH ONETIME PRN PRN Reason: IV FLUSH Labs: Laboratory Tests 07/02/18 07/02/18 07/02/18 Range/Units 16:10 16:10 16:10 WBC 15.28 H (4.23-9.07) K/mm3 RBC 4.74 (4.63-6.08) M/mm3 Hgb 14.5 (13.7-17.5) gm/L Hct 42.9 (40.1-51.0) % MCV 90.5 (79.0-92.2) fl MCH 30.6 (25.7-32.2) pg MCHC 33.8 (32.2-35.5) g/dl RDW Std Deviation 41.9 (35.1-43.9) fL Plt Count 241 (163-337) K/mm3 MPV 10.7 (9.4-12.3) fl Neutrophils % (Manual) 86 H (40-60) % Band Neutrophils % 0 (0-10) % Lymphocytes % (Manual) 9 L (20-40) % Atypical Lymphs % 0 % Monocytes % (Manual) 3 (2-10) % Eosinophils % (Manual) 0 L (0.8-7.0) % Basophils % (Manual) 2 H (0.2-1.2) Platelet Estimate Adequate Plt Morphology Comment Normal RBC Morph Comment Normal Sodium 139 (136-145) mEq/L Potassium 4.0 (3.5-5.1) mEq/L Chloride 101 (98-107) mEq/L Carbon Dioxide 22 (21-32) mEq/L Anion Gap 20.0 H (5-15) BUN 20 H (7-18) mg/dL Creatinine 1.3 (0.7-1.3) mg/dL Est Cr Clr Drug Dosing 72.13 mL/min Estimated GFR (MDRD) 58 (>60) mL/min BUN/Creatinine Ratio 15.4 (14-18) Glucose 147 H (74-106) mg/dL Calcium 9.9 (8.5-10.1) mg/dL Total Bilirubin 0.7 (0.2-1.0) mg/dL AST 19 (15-37) U/L ALT 28 (16-63) U/L Alkaline Phosphatase 107 (46-116) U/L C-Reactive Protein 0.5 (<1.0) mg/dL Total Protein 8.3 H (6.4-8.2) g/dl Albumin 4.5 (3.4-5.0) g/dl Globulin 3.8 gm/dL Albumin/Globulin Ratio 1.2 (1-2) Lipase 77 (73-393) U/L Urine Color (Yellow) Urine Appearance (Clear) Urine pH (5.0-8.0) Ur Specific [place] (1.005-1.030) Urine Protein (Negative) Urine Glucose (UA) (Negative) Urine Ketones (Negative) Urine Occult Blood (Negative) Urine Nitrite (Negative) Urine Bilirubin (Negative) Urine Urobilinogen (0.2-1.0) Ur Leukocyte Esterase (Negative) Urine RBC (0-5) /hpf Urine WBC (0-5) /hpf Ur Epithelial Cells (0-5) /hpf Urine Bacteria (FEW) /hpf Urine Mucus (FEW) /hpf 07/02/ Range/Units 19:10 WBC (4.23-9.07) K/mm3 RBC (4.63-6.08) M/mm3 Hgb (13.7-17.5) gm/L Hct (40.1-51.0) % MCV (79.0-92.2) fl MCH (25.7-32.2) pg MCHC (32.2-35.5) g/dl RDW Std Deviation (35.1-43.9) fL Plt Count (163-337) K/mm3 MPV (9.4-12.3) fl Neutrophils % (Manual) (40-60) % Band Neutrophils % (0-10) % Lymphocytes % (Manual) (20-40) % Atypical Lymphs % % Monocytes % (Manual) (2-10) % Eosinophils % (Manual) (0.8-7.0) % Basophils % (Manual) (0.2-1.2) Platelet Estimate Plt Morphology Comment RBC Morph Comment Sodium (136-145) mEq/L Potassium (3.5-5.1) mEq/L Chloride (98-107) mEq/L Carbon Dioxide (21-32) mEq/L Anion Gap (5-15) BUN (7-18) mg/dL Creatinine (0.7-1.3) mg/dL Est Cr Clr Drug Dosing mL/min Estimated GFR (MDRD) (>60) mL/min BUN/Creatinine Ratio (14-18) Glucose (74-106) mg/dL Calcium (8.5-10.1) mg/dL Total Bilirubin (0.2-1.0) mg/dL AST (15-37) U/L ALT (16-63) U/L Alkaline Phosphatase (46-116) U/L C-Reactive Protein (<1.0) mg/dL Total Protein (6.4-8.2) g/dl Albumin (3.4-5.0) g/dl Globulin gm/dL Albumin/Globulin Ratio (1-2) Lipase (73-393) U/L Urine Color Yellow (Yellow) Urine Appearance Clear (Clear) Urine pH 8.0 (5.0-8.0) Ur Specific [place] 1.025 (1.005-1.030) Urine Protein 1+ H (Negative) Urine Glucose (UA) Negative (Negative) Urine Ketones 2+ H (Negative) Urine Occult Blood Negative (Negative) Urine Nitrite Negative (Negative) Urine Bilirubin Negative (Negative) Urine Urobilinogen 0.2 (0.2-1.0) Ur Leukocyte Esterase Negative (Negative) Urine RBC 0-5 (0-5) /hpf Urine WBC Not seen (0-5) /hpf Ur Epithelial Cells 0-5 (0-5) /hpf Urine Bacteria Not seen (FEW) /hpf Urine Mucus Not seen (FEW) /hpf Meds: Medications Generic Name Dose Route Start Last Admin Trade Name Freq PRN Reason Stop Dose Admin Hydromorphone HCl 0.5 mg 07/02/18 20:38 Dilaudid IVPUSH Q2H PRN Pain Sodium Chloride 1,000 mls @ 150 mls/hr 07/02/18 16:30 07/02/18 16:24 Normal Saline IV 150 mls/hr ASDIRECTED FREDIS Administration Lactated Ringer's 1,000 mls @ 120 mls/hr 07/02/18 20:38 Ringers, Lactated IV 07/03/18 04:57 .BOLUS ONE Piperacillin Sod/Tazobactam 100 mls @ 25 mls/hr 07/02/18 20:45 Sod 4.5 gm/ Sodium Chloride IV Q8H FREDIS Ondansetron HCl 4 mg 07/02/18 20:38 Zofran IVPUSH Q6H PRN Nausea Sodium Chloride 10 ml 07/02/18 17:24 07/02/18 17:52 Saline Flush FLUSH 10 ml ASDIRECTED PRN Administration Keep Vein Open Sodium Chloride 10 ml 07/02/18 19:00 Saline Flush FLUSH ONETIME PRN IV FLUSH Discontinued Medications Generic Name Dose Route Start Last Admin Trade Name Freq PRN Reason Stop Dose Admin Diatrizoate Meglum/Diatrizoate Sod 120 ml 07/02/18 19:00 Gastrografin 37% PO 07/02/18 19:01 ONETIME ONE Hydromorphone HCl 1 mg 07/02/18 17:14 07/02/18 17:20 Dilaudid IVPUSH 07/02/18 17:15 1 mg ONETIME ONE Administration Hydromorphone HCl 0.5 mg 07/02/18 20:37 Dilaudid IVPUSH 07/02/18 20:38 ONETIME ONE Iopamidol 150 ml 07/02/18 19:00 Isovue-300 (61%) IVPUSH 07/02/18 19:01 ONETIME ONE Ondansetron HCl 4 mg 07/02/18 16:16 07/02/18 16:24 Zofran IVPUSH 07/02/18 16:17 4 mg ONETIME ONE Administration Ondansetron HCl 4 mg 07/02/18 17:24 07/02/18 17:48 Zofran IVPUSH 07/02/18 17:25 4 mg ONETIME ONE Administration - Radiology Interpretation Free Text/Narrative:: CT of the abdomen and pelvis with IV and oral contrast impression per Dr. Melissa at [facility] in [place]: acute appendicitis - Re-Assessments/Exams Free Text/Narrative Re-Assessment/Exam: 07/02/18 20:59 Patient reports the pain is starting to return. Dilaudid 0.5mg IV dilaudid ordered. Unfortunately, our CT was down at the time the patient needed the scan. Spoke with [facility] at 19:30 and they were able to accommodate him. Patient went by private vehicle, drove, to [facility] where the CT scan was preformed. He then returned to our ED. Received radiology report from Dr. Melissa at [facility] in [place], acute appendicitis. Notified patient and family of findings. Contacted Dr. Shepard, surgery instructor physical education, plan will be to give zosyn 4.5g q8 hrs, fluids at 120ml/hr, Zofran 4mg q6hr orn nausea and dilaudid 0.5mg IV q2 hrs prn pain. NPO. Plan will be to go to the OR first thing in the morning for an appendectomy. Departure - Departure Time of Disposition: 21:09 Disposition: Refer to Observation Condition: Fair Clinical Impression: Appendicitis - Discharge Information *PRESCRIPTION DRUG MONITORING PROGRAM REVIEWED*: No *COPY OF PRESCRIPTION DRUG MONITORING REPORT IN PATIENT LUPIS: No Referrals: PCP,Unknown [Ordering Only Provider] - Forms: ED Department Discharge Additional Instructions: Patient admitted for acute appendicitis. Plan to take to the OR first thing in the morning. Dr. Shepard, surgery, will take to the OR. - My Orders Last 24 Hours: My Active Orders 07/02/18 17:24 Peripheral IV Care [RC] . DIRECTED Abdomen Pelvis w Cont [CT] Stat Sodium Chloride 0.9% [Saline Flush] 10 ml FLUSH ASDIRECTED PRN Peripheral IV Insertion Adult [OM.PC] Routine 07/02/18 19:00 Sodium Chloride 0.9% [Saline Flush] 10 ml FLUSH ONETIME PRN 07/02/18 20:38 HYDROmorphone [Dilaudid] 0.5 mg IVPUSH Q2H PRN Lactated Ringers [Ringers, Lactated] 1,000 ml IV .BOLUS Ondansetron [Zofran] 4 mg IVPUSH Q6H PRN 07/02/18 20:40 Code Status [Resuscitation Status] Stat 07/02/18 20:45 Piperacillin/Tazobactam [Zosyn] 4.5 gm Sodium Chloride 0.9% [Normal Saline] 100 ml IV Q8H 07/03/18 Breakfast Nothing Per Oral Diet [DIET] - Assessment/Plan Last 24 Hours: My Active Orders 07/02/18 17:24 Peripheral IV Care [RC] . DIRECTED Abdomen Pelvis w Cont [CT] Stat Sodium Chloride 0.9% [Saline Flush] 10 ml FLUSH ASDIRECTED PRN Peripheral IV Insertion Adult [OM.PC] Routine 07/02/18 19:00 Sodium Chloride 0.9% [Saline Flush] 10 ml FLUSH ONETIME PRN 07/02/18 20:38 HYDROmorphone [Dilaudid] 0.5 mg IVPUSH Q2H PRN Lactated Ringers [Ringers, Lactated] 1,000 ml IV .BOLUS Ondansetron [Zofran] 4 mg IVPUSH Q6H PRN 07/02/18 20:40 Code Status [Resuscitation Status] Stat 07/02/18 20:45 Piperacillin/Tazobactam [Zosyn] 4.5 gm Sodium Chloride 0.9% [Normal Saline] 100 ml IV Q8H 07/03/18 Breakfast Nothing Per Oral Diet [DIET]
[2018-07-02] MEDS ORDERED: Iopamidol 612 MG/ML 150 ML Bottle IVPUSH ONE (19:00)
[2018-07-02] MEDS ORDERED: Diatrizoate Meglumine/Diatrizoate Sodium 37% 120 ML Bottle PO ONE (19:00)
[2018-07-02] MEDS ORDERED: HYDROmorphone 0.5 MG/0.5 ML SYRINGE IVPUSH ONE (20:37)
[2018-07-02] MEDS ORDERED: Ondansetron 4 MG/2 ML SDV IVPUSH PRN (20:38)
[2018-07-02] MEDS ORDERED: Lactated Ringers 1,000 ML IV ONE (20:38)
[2018-07-02] MEDS ORDERED: HYDROmorphone 1 MG/ML Syringe IVPUSH PRN (20:38)
[2018-07-02] MEDS: Piperacillin/Tazobactam 4.5 GM in Sodium Chloride 0.9% 100 ML IV SCH (20:57)
[2018-07-03] MEDS: HYDROmorphone 0.5 MG/0.5 ML Syringe IVPUSH PRN ×2 (01:05→06:51)
[2018-07-03] MEDS: Piperacillin/Tazobactam 4.5 GM in Sodium Chloride 0.9% 100 ML IV SCH ×3 (05:09→20:48)
[2018-07-03] MEDS ORDERED: Bupivacaine 0.5% 30 ML SDV ONE (07:05)
[2018-07-03] MEDS ORDERED: Lidocaine 1% with EPINEPHrine 1:100,000 20 ML MDV ONE (07:05)
[2018-07-03] MEDS ORDERED: Propofol 200 MG/20 ML SDV ONE (07:20)
[2018-07-03] MEDS ORDERED: fentaNYL 250 MCG/5 ML SDV ONE (07:20)
[2018-07-03] MEDS ORDERED: Midazolam 1 MG/ML 2 ML SDV ONE (07:20)
[2018-07-03] MEDS ORDERED: Lidocaine 1% 4 ML ONE (07:26)
[2018-07-03] MEDS ORDERED: Rocuronium 50 MG/5 ML Vial ONE (07:26)
[2018-07-03] MEDS ORDERED: Ondansetron 4 MG/2 ML SDV ONE (07:26)
[2018-07-03] MEDS ORDERED: Dexamethasone 4 MG/ML 5 ML MDV ONE (07:26)
--- NOTE | 2018-07-03 07:32 | PCM.HP ---
H&P History of Present Illness - General Date of Service: 07/03/18 Admit Problem/Dx: Admission Diagnosis/Problem Admission Diagnosis/Problem Acute appendicitis Source of Information: Patient - History of Present Illness Initial Comments - Free Text/Narative: 52 yo male, presents with 24 hours of abdominal pain, which woke the patient from sleep. Pain was located throughout the abdomen, but has moved to the lower abdomen, mostly on the RIGHT. Pain was associated with nausea and multiple episodes of emesis. He also has chills, and this morning, has a headache. Pain was very severe, and had a bloated sensation. He received IV Dilaudid since admission late last night, with improvement in his symptoms. Pain is currently 2 /10. lower abdomen Pain Score (Numeric/FACES): 3 - Related Data Allergies/Adverse Reactions: Allergies Allergy/AdvReac Type Severity Reaction Status Date / Time codeine Allergy Anaphylactic Verified 07/02/18 16:02 Shock Home Medications: Home Meds Cholecalciferol (Vitamin D3) [Vitamin D3] 5,000 unit PO DAILY 10/12/16 [History] Citalopram [Celexa] 40 mg PO DAILY 10/12/16 [History] Ranitidine [Zantac] 150 mg PO BID 10/12/16 [History] metFORMIN HCl [Metformin HCl] 500 mg PO BID 10/12/16 [History] atorvaSTATin [Lipitor] 10 mg PO DAILY 05/10/17 [History] Aspirin [Ecotrin] 81 mg PO DAILY 07/02/18 [History] Pantoprazole Sodium [Protonix] 40 mg PO DAILY 07/02/18 [History] Past Medical History HEENT History: Reports: None Cardiovascular History: Reports: High Cholesterol Respiratory History: Reports: Sleep Apnea Gastrointestinal History: Reports: GERD Genitourinary History: Reports: None 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 (See Below) Other OB/BYN History: degenerative joint disease Musculoskeletal History: Reports: Osteoarthritis, Other (See Below) Other Musculoskeletal History: Degenerative joint disease Neurological History: Reports: Other (See Below) Other Neuro History: short term memory loss Psychiatric History: Reports: Anxiety, Depression, PTSD Endocrine/Metabolic History: Reports: Diabetes, Type II, Obesity/BMI 30+, Other (See Below) Other Endocrine/Metabolic History: Impaired fasting glucose Hematologic History: Reports: None Immunologic History: Reports: None Oncologic (Cancer) History: Reports: None Dermatologic History: Reports: None Other Dermatologic History: dryness to scalp - Infectious Disease History Infectious Disease History: Reports: Chicken Pox - Past Surgical History HEENT Surgical History: Reports: Tonsillectomy, Other (See Below) Cardiovascular Surgical History: Reports: None Respiratory Surgical History: Reports: None GI Surgical History: Reports: Colonoscopy (2014 (was reportedly normal), told to repeat in 10 years) Male Surgical History: Reports: None Neurological Surgical History: Reports: Discectomy (anterior cervical discectomy and and also lumbar fusion) Musculoskeletal Surgical History: Reports: Knee Replacement (bilateral), Other ( See Below) Other Musculoskeletal Surgeries/Procedures:: Left total knee replacement, low back surgery, cervical anterior diskectomy Dermatological Surgical History: Reports: None Social & Family History - Family History Family Medical History: Noncontributory - Tobacco Use Smoking Status *Q: Never Smoker Second Hand Smoke Exposure: No - Caffeine Use Caffeine Use: Reports: Energy Drinks Other Caffeine Use: 2 energy drinks - Recreational Drug Use Recreational Drug Use: No H&P Review of Systems - Review of Systems: Review Of Systems: ROS reveals no pertinent complaints other than HPI. Exam - Exam Exam: See Below - Vital Signs Vital Signs: Last Vital Signs Temp 37.2 C 07/03/18 06:57 Pulse 60 07/03/18 06:57 Resp 20 07/03/18 06:57 BP 126/83 07/03/18 06:57 Pulse Ox 90 L 07/03/18 06:57 Weight: 114.804 kg - Exam General: Alert, Oriented, Cooperative Neck: Supple. No: Lymphadenopathy Lungs: Clear to Auscultation, Normal Respiratory Effort Cardiovascular: Regular Rate, Regular Rhythm GI/Abdominal Exam: Soft, No Distention, Tender (RLQ) Extremities: Normal Inspection Neuro Extensive - Mental Status: Alert, Normal Mood/Affect, Normal Cognition, Memory Intact - Patient Data Lab Results Last 24 hrs: Laboratory Results - last 24 hr 07/02/18 07/02/18 07/02/18 Range/Units 16:10 16:10 16:10 WBC 15.28 H (4.23-9.07) K/mm3 RBC 4.74 (4.63-6.08) M/mm3 Hgb 14.5 (13.7-17.5) gm/L Hct 42.9 (40.1-51.0) % MCV 90.5 (79.0-92.2) fl MCH 30.6 (25.7-32.2) pg MCHC 33.8 (32.2-35.5) g/dl RDW Std Deviation 41.9 (35.1-43.9) fL Plt Count 241 (163-337) K/mm3 MPV 10.7 (9.4-12.3) fl Neutrophils % (Manual) 86 H (40-60) % Band Neutrophils % 0 (0-10) % Lymphocytes % (Manual) 9 L (20-40) % Atypical Lymphs % 0 % Monocytes % (Manual) 3 (2-10) % Eosinophils % (Manual) 0 L (0.8-7.0) % Basophils % (Manual) 2 H (0.2-1.2) Platelet Estimate Adequate Plt Morphology Comment Normal RBC Morph Comment Normal Sodium 139 (136-145) mEq/L Potassium 4.0 (3.5-5.1) mEq/L Chloride 101 (98-107) mEq/L Carbon Dioxide 22 (21-32) mEq/L Anion Gap 20.0 H (5-15) BUN 20 H (7-18) mg/dL Creatinine 1.3 (0.7-1.3) mg/dL Est Cr Clr Drug Dosing 72.13 mL/min Estimated GFR (MDRD) 58 (>60) mL/min BUN/Creatinine Ratio 15.4 (14-18) Glucose 147 H (74-106) mg/dL Calcium 9.9 (8.5-10.1) mg/dL Total Bilirubin 0.7 (0.2-1.0) mg/dL AST 19 (15-37) U/L ALT 28 (16-63) U/L Alkaline Phosphatase 107 (46-116) U/L C-Reactive Protein 0.5 (<1.0) mg/dL Total Protein 8.3 H (6.4-8.2) g/dl Albumin 4.5 (3.4-5.0) g/dl Globulin 3.8 gm/dL Albumin/Globulin Ratio 1.2 (1-2) Lipase 77 (73-393) U/L Urine Color (Yellow) Urine Appearance (Clear) Urine pH (5.0-8.0) Ur Specific [place] (1.005-1.030) Urine Protein (Negative) Urine Glucose (UA) (Negative) Urine Ketones (Negative) Urine Occult Blood (Negative) Urine Nitrite (Negative) Urine Bilirubin (Negative) Urine Urobilinogen (0.2-1.0) Ur Leukocyte Esterase (Negative) Urine RBC (0-5) /hpf Urine WBC (0-5) /hpf Ur Epithelial Cells (0-5) /hpf Urine Bacteria (FEW) /hpf Urine Mucus (FEW) /hpf 07/02/18 Range/Units 19:10 WBC (4.23-9.07) K/mm3 RBC (4.63-6.08) M/mm3 Hgb (13.7-17.5) gm/L Hct (40.1-51.0) % MCV (79.0-92.2) fl MCH (25.7-32.2) pg MCHC (32.2-35.5) g/dl RDW Std Deviation (35.1-43.9) fL Plt Count (163-337) K/mm3 MPV (9.4-12.3) fl Neutrophils % (Manual) (40-60) % Band Neutrophils % (0-10) % Lymphocytes % (Manual) (20-40) % Atypical Lymphs % % Monocytes % (Manual) (2-10) % Eosinophils % (Manual) (0.8-7.0) % Basophils % (Manual) (0.2-1.2) Platelet Estimate Plt Morphology Comment RBC Morph Comment Sodium (136-145) mEq/L Potassium (3.5-5.1) mEq/L Chloride (98-107) mEq/L Carbon Dioxide (21-32) mEq/L Anion Gap (5-15) BUN (7-18) mg/dL Creatinine (0.7-1.3) mg/dL Est Cr Clr Drug Dosing mL/min Estimated GFR (MDRD) (>60) mL/min BUN/Creatinine Ratio (14-18) Glucose (74-106) mg/dL Calcium (8.5-10.1) mg/dL Total Bilirubin (0.2-1.0) mg/dL AST (15-37) U/L ALT (16-63) U/L Alkaline Phosphatase (46-116) U/L C-Reactive Protein (<1.0) mg/dL Total Protein (6.4-8.2) g/dl Albumin (3.4-5.0) g/dl Globulin gm/dL Albumin/Globulin Ratio (1-2) Lipase (73-393) U/L Urine Color Yellow (Yellow) Urine Appearance Clear (Clear) Urine pH 8.0 (5.0-8.0) Ur Specific [place] 1.025 (1.005-1.030) Urine Protein 1+ H (Negative) Urine Glucose (UA) Negative (Negative) Urine Ketones 2+ H (Negative) Urine Occult Blood Negative (Negative) Urine Nitrite Negative (Negative) Urine Bilirubin Negative (Negative) Urine Urobilinogen 0.2 (0.2-1.0) Ur Leukocyte Esterase Negative (Negative) Urine RBC 0-5 (0-5) /hpf Urine WBC Not seen (0-5) /hpf Ur Epithelial Cells 0-5 (0-5) /hpf Urine Bacteria Not seen (FEW) /hpf Urine Mucus Not seen (FEW) /hpf Result Diagrams: 07/02/18 16:10 07/02/18 16:10 - Problem List (1) Appendicitis SNOMED Code(s): 79623654 ICD Code: K37 - UNSPECIFIED APPENDICITIS Status: Acute Current Visit: Yes Problem List Initiated/Reviewed/Updated: Yes Orders Last 24hrs: Active Orders 24 hr Category Date Time Status Patient Status [ADT] Routine ADT 07/02/18 20:57 Active Bedrest Bathroom Privileges [RC] ASDIRECTED Care 07/02/18 20:55 Active Peripheral IV Care [RC] Q2HR Care 07/02/18 17:24 Active Nothing Per Oral Diet [DIET] Diet 07/03/18 Breakfast Active Abdomen 2V AP Flat Upright [CR] Stat Exams 07/02/18 16:14 Taken Abdomen Pelvis w Cont [CT] Stat Exams 07/02/18 17:24 Ordered UA W/MICROSCOPIC [URIN] Stat Lab 07/02/18 19:10 Ordered HYDROmorphone [Dilaudid] Med 07/03/18 01:00 Active 0.5 mg IVPUSH Q2H PRN Ondansetron [Zofran] Med 07/02/18 20:38 Active 4 mg IVPUSH Q6H PRN Piperacillin/Tazobactam [Zosyn] 4.5 gm Med 07/02/18 20:45 Active Sodium Chloride 0.9% [Normal Saline] 100 ml IV Q8H Sodium Chloride 0.9% [Saline Flush] Med 07/02/18 17:24 Active 10 ml FLUSH ASDIRECTED PRN Sodium Chloride 0.9% [Saline Flush] Med 07/02/18 19:00 Active 10 ml FLUSH ONETIME PRN Peripheral IV Insertion Adult [OM.PC] Routine Oth 07/02/18 17:24 Ordered Schedule Procedure [COMM] Routine Oth 07/03/18 08:00 Ordered Code Status [Resuscitation Status] Stat Resus Stat 07/02/18 20:40 Ordered Medication Orders Hydromorphone HCl (Dilaudid) 0.5 mg IVPUSH Q2H PRN PRN Reason: PAIN Last Admin: 07/03/18 06:51 Dose: 0.5 mg Admin: 07/03/18 01:05 Dose: 0.5 mg Piperacillin Sod/Tazobactam (Sod 4.5 gm/ Sodium Chloride) 100 mls @ 25 mls/hr IV Q8H FREDIS Last Admin: 07/03/18 05:09 Dose: 25 mls/hr Infusion: 07/03/18 00:57 Dose: 25 mls/hr Admin: 07/02/18 20:57 Dose: 25 mls/hr Ondansetron HCl (Zofran) 4 mg IVPUSH Q6H PRN PRN Reason: Nausea Sodium Chloride (Saline Flush) 10 ml FLUSH ASDIRECTED PRN PRN Reason: Keep Vein Open Last Admin: 07/02/18 17:52 Dose: 10 ml Sodium Chloride (Saline Flush) 10 ml FLUSH ONETIME PRN PRN Reason: IV FLUSH Assessment/Plan Comment:: 52 yo male, h/o HLD, obesity (BMI 34), impaired fasting glucose (on metformin), GERBER, retired [employer], presents with acute appendicitis. CT scan images were reviewed. It shows a dilated, distended appendix, with possible fecalith proximally, consistent with acute appendicitis. No CT evidence of perforation. - The diagnosis was discussed with the patient and his . - The patient was consented for laparoscopic appendectomy, possible open. Indications, risks, and benefits were discussed with the patient in detail. Risks include bleeding, infection, damage to surrounding structures, need for additional procedures, DVT/PE, OK, CVA, and . - Patient has been receiving IV Zosyn since admission through the ER late last night. Tadeo Jauregui M.D., F.A.C.S. General Surgery Pager: [phone]
--- NOTE | 2018-07-03 07:44 | PCM.PREANE ---
Preanesthetic Assessment - Procedure Proposed Procedure: Laparoscopic appendectomy - Anesthesia/Transfusion/Family Hx Anesthesia History: Prior Anesthesia Without Reaction Family History of Anesthesia Reaction: No (mother has excessive somnolence) Transfusion History: No Prior Transfusion(s) Intubation History: Unknown - Review of Systems General: Fever, Chills Pulmonary: Other (GERBER with CPAP) Cardiovascular: No Symptoms Gastrointestinal: Abdominal Pain, Nausea, Vomiting (07/02/18 1500), Other (GERD) Neurological: Numbness (sporadic bilateral arms ) Other: Reports: None, Diabetes (oral med controlled ), Liver Problems (fatty liver ), Depression, Anxiety - Physical Assessment NPO Status Date: 07/02/18 NPO Status Time: 23:55 Pulse: 60 O2 Sat by Pulse Oximetry: 90 Respiratory Rate: 20 Blood Pressure: 126/83 Temperature: 37.2 C Vital Signs: Last Vital Signs Temp 37.2 C 07/03/18 06:57 Pulse 60 07/03/18 06:57 Resp 20 07/03/18 06:57 BP 126/83 07/03/18 06:57 Pulse Ox 90 L 07/03/18 06:57 Height: 1.83 m Weight: 114.804 kg ASA Class: 2 Mental Status: Alert & Oriented x3 Airway Class: Mallampati = 3 Dentition: Reports: Normal Dentition Thyro-Mental Finger Breadths: 3 Mouth Opening Finger Breadths: 3 ROM/Head Extension: Limited/Partial (cervical 5-6-7 fusion) Lungs: Clear to Auscultation, Normal Respiratory Effort Cardiovascular: Regular Rate, Regular Rhythm - Lab Values: Laboratory Last Values WBC 15.28 K/mm3 (4.23-9.07) H 07/02/18 16:10 RBC 4.74 M/mm3 (4.63-6.08) 07/02/18 16:10 Hgb 14.5 gm/L (13.7-17.5) 07/02/18 16:10 Hct 42.9 % (40.1-51.0) 07/02/18 16:10 MCV 90.5 fl (79.0-92.2) 07/02/18 16:10 MCH 30.6 pg (25.7-32.2) 07/02/18 16:10 MCHC 33.8 g/dl (32.2-35.5) 07/02/18 16:10 RDW Std Deviation 41.9 fL (35.1-43.9) 07/02/18 16:10 Plt Count 241 K/mm3 (163-337) 07/02/18 16:10 MPV 10.7 fl (9.4-12.3) 07/02/18 16:10 Neutrophils % (Manual) 86 % (40-60) H 07/02/18 16:10 Band Neutrophils % 0 % (0-10) 07/02/18 16:10 Lymphocytes % (Manual) 9 % (20-40) L 07/02/18 16:10 Atypical Lymphs % 0 % 07/02/18 16:10 Monocytes % (Manual) 3 % (2-10) 07/02/18 16:10 Eosinophils % (Manual) 0 % (0.8-7.0) L 07/02/18 16:10 Basophils % (Manual) 2 (0.2-1.2) H 07/02/18 16:10 Platelet Estimate Adequate 07/02/18 16:10 Plt Morphology Comment Normal 07/02/18 16:10 RBC Morph Comment Normal 07/02/18 16:10 Sodium 139 mEq/L (136-145) 07/02/18 16:10 Potassium 4.0 mEq/L (3.5-5.1) 07/02/18 16:10 Chloride 101 mEq/L (98-107) 07/02/18 16:10 Carbon Dioxide 22 mEq/L (21-32) 07/02/18 16:10 Anion Gap 20.0 (5-15) H 07/02/18 16:10 BUN 20 mg/dL (7-18) H 07/02/18 16:10 Creatinine 1.3 mg/dL (0.7-1.3) 07/02/18 16:10 Est Cr Clr Drug Dosing 72.13 mL/min 07/02/18 16:10 Estimated GFR (MDRD) 58 mL/min (>60) 07/02/18 16:10 BUN/Creatinine Ratio 15.4 (14-18) 07/02/18 16:10 Glucose 147 mg/dL (74-106) H 07/02/18 16:10 Calcium 9.9 mg/dL (8.5-10.1) 07/02/18 16:10 Total Bilirubin 0.7 mg/dL (0.2-1.0) 07/02/18 16:10 AST 19 U/L (15-37) 07/02/18 16:10 ALT 28 U/L (16-63) 07/02/18 16:10 Alkaline Phosphatase 107 U/L (46-116) 07/02/18 16:10 C-Reactive Protein 0.5 mg/dL (<1.0) 07/02/18 16:10 Total Protein 8.3 g/dl (6.4-8.2) H 07/02/18 16:10 Albumin 4.5 g/dl (3.4-5.0) 07/02/18 16:10 Globulin 3.8 gm/dL 07/02/18 16:10 Albumin/Globulin Ratio 1.2 (1-2) 07/02/18 16:10 Lipase 77 U/L (73-393) 07/02/18 16:10 Urine Color Yellow (Yellow) 07/02/18 19:10 Urine Appearance Clear (Clear) 07/02/18 19:10 Urine pH 8.0 (5.0-8.0) 07/02/18 19:10 Ur Specific [place] 1.025 (1.005-1.030) 07/02/18 19:10 Urine Protein 1+ (Negative) H 07/02/18 19:10 Urine Glucose (UA) Negative (Negative) 07/02/18 19:10 Urine Ketones 2+ (Negative) H 07/02/18 19:10 Urine Occult Blood Negative (Negative) 07/02/18 19:10 Urine Nitrite Negative (Negative) 07/02/18 19:10 Urine Bilirubin Negative (Negative) 07/02/18 19:10 Urine Urobilinogen 0.2 (0.2-1.0) 07/02/18 19:10 Ur Leukocyte Esterase Negative (Negative) 07/02/18 19:10 Urine RBC 0-5 /hpf (0-5) 07/02/18 19:10 Urine WBC Not seen /hpf (0-5) 07/02/18 19:10 Ur Epithelial Cells 0-5 /hpf (0-5) 07/02/18 19:10 Urine Bacteria Not seen /hpf (FEW) 07/02/18 19:10 Urine Mucus Not seen /hpf (FEW) 08/29/18 19:10 - Allergies Allergies/Adverse Reactions: Allergies Allergy/AdvReac Type Severity Reaction Status Date / Time codeine Allergy Anaphylactic Verified 07/02/18 16:02 Shock - Blood Blood Available: No Product(s) Available: None - Anesthesia Plan Pre-Op Medication Ordered: None - Acknowledgements Anesthesia Type Planned: General Anesthesia Pt an Appropriate Candidate for the Planned Anesthesia: Yes Alternatives and Risks of Anesthesia Discussed w Pt/Guardian: Yes Pt/Guardian Understands and Agrees with Anesthesia Plan: Yes PreAnesthesia Questionnaire HEENT History: Reports: None Cardiovascular History: Reports: High Cholesterol Respiratory History: Reports: Sleep Apnea Gastrointestinal History: Reports: GERD Genitourinary History: Reports: None 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 (See Below) Other OB/BYN History: degenerative joint disease Musculoskeletal History: Reports: Osteoarthritis, Other (See Below) Other Musculoskeletal History: Degenerative joint disease Neurological History: Reports: Other (See Below) Other Neuro History: short term memory loss Psychiatric History: Reports: Anxiety, Depression, PTSD Endocrine/Metabolic History: Reports: Other (See Below) Other Endocrine/Metabolic History: Impaired fasting glucose Hematologic History: Reports: None Immunologic History: Reports: None Oncologic (Cancer) History: Reports: None Dermatologic History: Reports: None Other Dermatologic History: dryness to scalp - Infectious Disease History Infectious Disease History: Reports: Chicken Pox - Past Surgical History HEENT Surgical History: Reports: Tonsillectomy, Other (See Below) Cardiovascular Surgical History: Reports: None Respiratory Surgical History: Reports: None GI Surgical History: Reports: Colonoscopy Male Surgical History: Reports: None Neurological Surgical History: Reports: Discectomy Musculoskeletal Surgical History: Reports: Knee Replacement, Other (See Below) Other Musculoskeletal Surgeries/Procedures:: Left total knee replacement, low back surgery, cervical anterior diskectomy Dermatological Surgical History: Reports: None - SUBSTANCE USE Smoking Status *Q: Never Smoker Second Hand Smoke Exposure: No Recreational Drug Use History: No - HOME MEDS Home Medications: Home Meds Cholecalciferol (Vitamin D3) [Vitamin D3] 5,000 unit PO DAILY 10/12/16 [History] Citalopram [Celexa] 40 mg PO DAILY 10/12/16 [History] Ranitidine [Zantac] 150 mg PO BID 10/12/16 [History] metFORMIN HCl [Metformin HCl] 500 mg PO BID 12/09/16 [History] atorvaSTATin [Lipitor] 10 mg PO DAILY 05/10/17 [History] Aspirin [Ecotrin] 81 mg PO DAILY 07/02/18 [History] Pantoprazole Sodium [Protonix] 40 mg PO DAILY 07/02/18 [History] - CURRENT (IN HOUSE) MEDS Current Meds: Current Medications Hydromorphone HCl (Dilaudid) 0.5 mg IVPUSH Q2H PRN PRN Reason: PAIN Last Admin: 07/03/18 06:51 Dose: 0.5 mg Piperacillin Sod/Tazobactam (Sod 4.5 gm/ Sodium Chloride) 100 mls @ 25 mls/hr IV Q8H FREDIS Last Admin: 07/03/18 05:09 Dose: 25 mls/hr Ondansetron HCl (Zofran) 4 mg IVPUSH Q6H PRN PRN Reason: Nausea Sodium Chloride (Saline Flush) 10 ml FLUSH ASDIRECTED PRN PRN Reason: Keep Vein Open Last Admin: 07/02/18 17:52 Dose: 10 ml Sodium Chloride (Saline Flush) 10 ml FLUSH ONETIME PRN PRN Reason: IV FLUSH Discontinued Medications Bupivacaine HCl (Marcaine 0.5%) Confirm Administered Dose 30 ml .ROUTE .STK-MED ONE Stop: 07/03/18 07:06 Dexamethasone (Dexamethasone) Confirm Administered Dose 20 mg .ROUTE .STK-MED ONE Stop: 07/03/18 07:27 Diatrizoate Meglum/Diatrizoate Sod (Gastrografin 37%) 120 ml PO ONETIME ONE Stop: 07/02/18 19:01 Last Admin: 07/03/18 00:12 Dose: Not Given Fentanyl (Sublimaze) Confirm Administered Dose 250 mcg .ROUTE .STK-MED ONE Stop: 07/03/18 07:21 Hydromorphone HCl (Dilaudid) 1 mg IVPUSH ONETIME ONE Stop: 07/02/18 17:15 Last Admin: 07/02/18 17:20 Dose: 1 mg Hydromorphone HCl (Dilaudid) 0.5 mg IVPUSH ONETIME ONE Stop: 07/02/18 20:38 Last Admin: 07/02/18 20:56 Dose: 0.5 mg Hydromorphone HCl (Dilaudid) 0.5 mg IVPUSH Q2H PRN PRN Reason: Pain Sodium Chloride (Normal Saline) 1,000 mls @ 150 mls/hr IV ASDIRECTED FREDIS Last Admin: 07/02/18 16:24 Dose: 150 mls/hr Lactated Ringer's (Ringers, Lactated) 1,000 mls @ 120 mls/hr IV .BOLUS ONE Stop: 07/03/18 04:57 Last Admin: 07/02/18 21:04 Dose: 120 mls/hr Lidocaine HCl (Xylocaine-Mpf 1%) Confirm Administered Dose 4 mls @ as directed .ROUTE .STK-MED ONE Stop: 07/03/18 07:27 Iopamidol (Isovue-300 (61%)) 150 ml IVPUSH ONETIME ONE Stop: 07/02/18 19:01 Last Admin: 07/03/18 00:12 Dose: Not Given Lidocaine/Epinephrine (Xylocaine 1% With Epinephrine 1:100,000) Confirm Administered Dose 20 ml .ROUTE .STK-MED ONE Stop: 07/03/18 07:06 Midazolam HCl (Versed 1 Mg/Ml) Confirm Administered Dose 2 mg .ROUTE .STK-MED ONE Stop: 07/03/18 07:21 Ondansetron HCl (Zofran) 4 mg IVPUSH ONETIME ONE Stop: 07/02/18 16:17 Last Admin: 07/02/18 16:24 Dose: 4 mg Ondansetron HCl (Zofran) 4 mg IVPUSH ONETIME ONE Stop: 07/02/18 17:25 Last Admin: 07/02/18 17:48 Dose: 4 mg Ondansetron HCl (Zofran) Confirm Administered Dose 4 mg .ROUTE .STK-MED ONE Stop: 07/03/18 07:27 Propofol (Diprivan 20 Ml) Confirm Administered Dose 200 mg .ROUTE .STK-MED ONE Stop: 07/03/18 07:21 Rocuronium [place] (Zemuron) Confirm Administered Dose 50 mg .ROUTE .STK-MED ONE Stop: 07/03/18 07:27
[2018-07-03] MEDS ORDERED: HYDROmorphone 0.5 MG/0.5 ML Syringe ONE ×2 (08:46)
[2018-07-03] MEDS ORDERED: diphenhydrAMINE 50 MG/ML SDV IVPUSH PRN (09:01)
[2018-07-03] MEDS ORDERED: HYDROmorphone 0.5 MG/0.5 ML Syringe IVPUSH PRN (09:01)
[2018-07-03] MEDS ORDERED: fentaNYL 100 MCG/2 ML SDV IVPUSH PRN (09:01)
[2018-07-03] MEDS ORDERED: Ondansetron 4 MG/2 ML SDV IVPUSH PRN (09:01)
[2018-07-03] MEDS ORDERED: Meperidine 50 MG/ML Vial IVPUSH PRN (09:01)
--- NOTE | 2018-07-03 10:07 | PCM.POSTAN ---
POST ANESTHESIA ASSESSMENT - MENTAL STATUS Mental Status: Alert, Oriented - VITAL SIGNS Pulse Rate: 85 SaO2: 93 Resp Rate: 19 Blood Pressure: 127/83 Temperature: 36.7 C - RESPIRATORY Respiratory Status: Respiratory Rate WNL, Airway Patent, O2 Saturation Stable - CARDIOVASCULAR CV Status: Pulse Rate WNL, Blood Pressure Stable - GASTROINTESTINAL GI Status: No Symptoms - PAIN Pain Score: 0 - POST OP HYDRATION Hydration Status: Adequate & Stable
--- NOTE | 2018-07-03 10:28 | PCM.OPNOTE ---
- General Post-Op/Procedure Note Date of Surgery/Procedure: 07/03/18 Operative Procedure(s): laparoscopic appendectomy Findings: 1) inflamed appendix 2) Bleeding from the mesoappendiceal staple line, requiring application of energy device and hemostatic agents Pre Op Diagnosis: acute appendicitis Post-Op Diagnosis: acute appendicitis Anesthesia Technique: General ET Tube Primary Surgeon: Tadeo Jauregui Anesthesia Provider: Jeremias Schilling Pathology: appendix Fluid Replacement, Intraop: 1,300 (crystalloid) EBL in mLs: 125 Complications: None Condition: Good Free Text/Narrative:: Intake & Output 07/02/18 07/03/18 07/03/18 22:59 06:59 14:59 Intake Total 375 Balance 375 Indications for surgery: The patient is a 52 yo male, h/o obesity, who presents with acute appendicitis. The patient was consented for laparosocpic appendectomy , possible open. Indications, risks, and benefits were discussed with the patient in detail. Description of procedure: After surgical consent was verified, the patient was brought to the main OR. Anesthesia performed general endotracheal intubation without complications. Appropriate padding and straps were placed. SCD's were on and functioning. The patient had been receiving ongoing IV Zosyn. A Hayden catheter and OG tube were inserted. A surgical time-out was performed to verify proper patient, proper site, and proper procedure. Local anesthetic (1:1 solution of 1% lidocaine with epinephrine and 0.5% bupivacaine) was injected at Lauren's point in the LUQ. A 5 mm incision was made , and a Veress needle was inserted. The abdomen was insufflated to 15 mmHg without complications. Using the Optview technique, a 5 mm trocar was inserted. The laparoscope was inserted, and there was no evidence of intra-abdominal injury from trocar placement. Additional trocars were placed: a 12 mm trocar in the left lower quadrant and a 5 mm trocar in the suprapubic region. The patient was re-positioned to Trendelenburg with LEFT side down. The appendix was identified and noted to be thickened and inflamed. There was a lot of fatty tissue in the abdomen, including around the mesoappendix. A window was made in the mesoappendix at the appendiceal base. A 45 mm blue load laparoscopic stapler was used to divide the appendiceal base. A 45 mm white load laparoscopic stapler was used to divide the mesoappendix. There was arterial bleeding from the mesoappendiceal stump. Due to the fatty and thickened nature of the mesoappendiceal stump, clip application was unsuccessful in securing hemostasis. Attempt was made at using the Ligasure device to obtain hemostasis, but due to equipment failure, the Ligasure devices x2 did not successfully apply energy. We then used a Harmonic scalpel to obtain hemostasis. The blood and blood clots were suctioned out. Hemostasis was ensured. Surgicel and Floseal hemostatic agents were applied to the mesoappendiceal stump. The appendix was placed in an Endocatch bag and removed through the 12 mm trocar site. In order to remove the specimen, the fascia and skin at the 12 mm trocar site had to be extended slightly using cautery. The 12 mm trocar site was closed with an interrupted 0-Vicryl suture x2 via a transfascial suture passer. The suprapubic trocar was removed under direct visualization, and the abdomen was allowed to desufflate. The remaining LUQ trocar was removed. The skin was closed with 4-0 Monocryl and covered with Dermabond. The patient tolerated the procedure well, was extubated, and transported to the PACU in stable condition. At the end of the case, all needle, instrument, and gauze counts were correct. The Hayden catheter and OG tube were removed. I was present and scrubbed for the entirety of the case. Tadeo Jauregui M.D., F.A.C.S. General Surgery Pager: [phone]
[2018-07-03] MEDS: Acetaminophen/oxyCODONE 325-5 MG Tab PO PRN ×3 (12:15→20:47)
[2018-07-03] MEDS ORDERED: Pantoprazole 40 MG Tab.CR PO SCH (20:45)
[2018-07-03] MEDS ORDERED: Ranitidine 15 MG/ML Syrup 10 ML UD Cup PO SCH (21:00)
[2018-07-03] MEDS ORDERED: RANITIDINE 150 MG PO ONE (21:45)
[2018-07-04] MEDS: Acetaminophen/oxyCODONE 325-5 MG Tab PO PRN ×4 (02:57→16:17)
[2018-07-04] MEDS: RANITIDINE 150 MG PO SCH ×2 (07:51→08:24)
--- NOTE | 2018-07-04 10:02 | PCM.PN ---
- General Info Date of Service: 07/04/18 Admission Dx/Problem (Free Text): Admission Diagnosis/Problem Admission Diagnosis/Problem Acute appendicitis Subjective Update: No acute events overnight. Pain controlled with Percocet, which he has been using about every 4 hours. No nausea/emesis. Tolerating regular diet. - Patient Data Vitals - Most Recent: Last Vital Signs Temp 37.3 C 07/03/18 11:00 Pulse 62 07/03/18 15:25 Resp 16 07/03/18 11:00 BP 137/77 07/03/18 14:58 Pulse Ox 90 L 07/03/18 15:25 Weight - Most Recent: 114.804 kg I&O - Last 24 Hours: Intake & Output 07/03/18 07/04/18 07/04/18 22:59 06:59 14:59 Intake Total 2820 1100 Balance 2820 1100 Med Orders - Current: Current Medications Hydromorphone HCl (Dilaudid) 0.5 mg IVPUSH Q2H PRN PRN Reason: PAIN Last Admin: 07/03/18 06:51 Dose: 0.5 mg Ondansetron HCl (Zofran) 4 mg IVPUSH Q6H PRN PRN Reason: Nausea Oxycodone/Acetaminophen (Percocet 325-5 Mg) 1 - 2 tab PO Q4H PRN PRN Reason: Pain Last Admin: 07/04/18 07:50 Dose: 2 tab Pantoprazole Sodium (Protonix) 40 mg PO ACBREAKFAST [facility] Last Admin: 07/04/18 07:51 Dose: 40 mg Ranitidine 150mg (Tabs Own Med) 0 each PO BID [facility] Last Admin: 07/04/18 08:24 Dose: Not Given Sodium Chloride (Saline Flush) 10 ml FLUSH ASDIRECTED PRN PRN Reason: Keep Vein Open Last Admin: 07/02/18 17:52 Dose: 10 ml Sodium Chloride (Saline Flush) 10 ml FLUSH ONETIME PRN PRN Reason: IV FLUSH Discontinued Medications Bupivacaine HCl (Marcaine 0.5%) Confirm Administered Dose 30 ml .ROUTE .STK-MED ONE Stop: 07/03/18 07:06 Last Admin: 07/03/18 09:34 Dose: 12.5 ml Dexamethasone (Dexamethasone) Confirm Administered Dose 20 mg .ROUTE .STK-MED ONE Stop: 07/03/18 07:27 Diatrizoate Meglum/Diatrizoate Sod (Gastrografin 37%) 120 ml PO ONETIME ONE Stop: 07/02/18 19:01 Last Admin: 07/03/18 00:12 Dose: Not Given Diphenhydramine HCl (Benadryl) 25 mg IVPUSH Q6H PRN PRN Reason: Pruritis Stop: 07/03/18 12:00 Famotidine (Pepcid) 20 mg PO BID [facility] Fentanyl (Sublimaze) Confirm Administered Dose 250 mcg .ROUTE .STK-MED ONE Stop: 07/03/18 07:21 Fentanyl (Sublimaze) 50 mcg IVPUSH Q5M PRN PRN Reason: Pain Stop: 07/03/18 12:00 Hydromorphone HCl (Dilaudid) 1 mg IVPUSH ONETIME ONE Stop: 07/02/18 17:15 Last Admin: 07/02/18 17:20 Dose: 1 mg Hydromorphone HCl (Dilaudid) 0.5 mg IVPUSH ONETIME ONE Stop: 07/02/18 20:38 Last Admin: 07/02/18 20:56 Dose: 0.5 mg Hydromorphone HCl (Dilaudid) 0.5 mg IVPUSH Q2H PRN PRN Reason: Pain Hydromorphone HCl (Dilaudid) Confirm Administered Dose 0.5 mg .ROUTE .STK-MED ONE Stop: 07/03/18 08:47 Hydromorphone HCl (Dilaudid) Confirm Administered Dose 0.5 mg .ROUTE .STK-MED ONE Stop: 07/03/18 08:47 Hydromorphone HCl (Dilaudid) 0.5 mg IVPUSH ONETIME PRN PRN Reason: SEVERE PAIN RATED 7-10 Stop: 07/03/18 12:00 Sodium Chloride (Normal Saline) 1,000 mls @ 150 mls/hr IV ASDIRECTED [facility] Last Admin: 07/02/18 16:24 Dose: 150 mls/hr Lactated Ringer's (Ringers, Lactated) 1,000 mls @ 120 mls/hr IV .BOLUS ONE Stop: 07/03/18 04:57 Last Admin: 07/02/18 21:04 Dose: 120 mls/hr Piperacillin Sod/Tazobactam (Sod 4.5 gm/ Sodium Chloride) 100 mls @ 25 mls/hr IV Q8H [facility] Stop: 07/03/18 23:00 Last Admin: 07/03/18 20:48 Dose: 25 mls/hr Lidocaine HCl (Xylocaine-Mpf 1%) Confirm Administered Dose 4 mls @ as directed .ROUTE .STK-MED ONE Stop: 07/03/18 07:27 Iopamidol (Isovue-300 (61%)) 150 ml IVPUSH ONETIME ONE Stop: 07/02/18 19:01 Last Admin: 07/03/18 00:12 Dose: Not Given Lidocaine/Epinephrine (Xylocaine 1% With Epinephrine 1:100,000) Confirm Administered Dose 20 ml .ROUTE .STK-MED ONE Stop: 07/03/18 07:06 Last Admin: 07/03/18 09:34 Dose: 12.5 ml Meperidine HCl (Meperidine) 12.5 mg IVPUSH ONETIME PRN PRN Reason: Shivering Stop: 07/03/18 12:00 Midazolam HCl (Versed 1 Mg/Ml) Confirm Administered Dose 2 mg .ROUTE .STK-MED ONE Stop: 07/03/18 07:21 Ranitidine 150mg (Tabs Own Med) 1 each PO ONETIME ONE Stop: 07/03/18 21:46 Last Admin: 07/03/18 21:45 Dose: 1 each Ondansetron HCl (Zofran) 4 mg IVPUSH ONETIME ONE Stop: 07/02/18 16:17 Last Admin: 07/02/18 16:24 Dose: 4 mg Ondansetron HCl (Zofran) 4 mg IVPUSH ONETIME ONE Stop: 07/02/18 17:25 Last Admin: 07/02/18 17:48 Dose: 4 mg Ondansetron HCl (Zofran) Confirm Administered Dose 4 mg .ROUTE .STK-MED ONE Stop: 07/03/18 07:27 Ondansetron HCl (Zofran) 4 mg IVPUSH ONETIME PRN PRN Reason: Nausea/Vomiting Stop: 07/03/18 12:00 Pantoprazole Sodium (Protonix) 40 mg PO DAILY [facility] Last Admin: 07/03/18 23:12 Dose: Not Given Pantoprazole Sodium (Protonix) 40 mg PO ONETIME ONE Stop: 07/03/18 21:46 Last Admin: 07/03/18 23:10 Dose: Not Given Propofol (Diprivan 20 Ml) Confirm Administered Dose 200 mg .ROUTE .STK-MED ONE Stop: 07/03/18 07:21 Ranitidine HCl (Zantac) 150 mg PO BID [facility] Last Admin: 07/03/18 23:12 Dose: Not Given Rocuronium [place] (Zemuron) Confirm Administered Dose 50 mg .ROUTE .STK-MED ONE Stop: 07/03/18 07:27 - Exam GI/Abdominal Exam: Other (lap incisions C/D/I with Dermabond. Appropriately tender.) - Problem List & Annotations (1) Appendicitis SNOMED Code(s): 56641521 Code(s): K37 - UNSPECIFIED APPENDICITIS Status: Acute Current Visit: Yes - Problem List Review Problem List Initiated/Reviewed/Updated: Yes - My Orders Last 24 Hours: My Active Orders 07/03/18 10:29 Acetaminophen/oxyCODONE [Percocet 325-5 MG] 1 - 2 tab PO Q4H PRN 07/03/18 21:15 Pantoprazole [ProTONIX] 40 mg PO ACBREAKFAST 07/03/18 Lunch Regular Diet [DIET] 07/04/18 09:00 Patient's Own Medication [Ptom] 0 each PO BID - Plan Plan:: 52 yo male, h/o HLD, obesity (BMI 34), impaired fasting glucose (on metformin), GERBER, retired [employer], POD#1 s/p lap appendectomy, was kept overnight due to oxygen desaturation whenever he fell asleep. This has resolved. - Ok for discharge home. Tadeo Jauregui M.D., F.A.C.S. General Surgery Pager: [phone]
--- NOTE | 2018-07-04 10:05 | PCM.DCSUM1 ---
Discharge Summary - Hospital Course Diagnosis: Stroke: No Modified Ramos Scale: No Symptoms at All Modified Ramos Scale Score: 0 - Discharge Data Discharge Date: 07/04/18 Discharge Disposition: Home, Self-Care 01 Condition: Good - Discharge Diagnosis/Problem(s) (1) Appendicitis SNOMED Code(s): 09955935 ICD Code: K37 - UNSPECIFIED APPENDICITIS Status: Acute Current Visit: Yes - Patient Summary/Data Operative Procedure(s) Performed: laparoscopic appendectomy Hospital Course: The patient was admitted late night on 02Jul2018, and underwent laparoscopic appendectomy on 03Jul2018. Post-operatively, due to oxygen desaturation when falling asleep, the patient was kept inpatient overnight. He did well overnight , without significant issues with oxygen saturation. He was safe for discharge home on 04Jul2018 (POD#1). - Patient Instructions Diet: Regular Diet as Tolerated Activity: No Lifting Over 10 Pounds (for 4 weeks after surgery), No Strenuous Activities (for 4 weeks after surgery), Rest and Relax Today Driving: Do Not Drive (while on pain medication) Showering/Bathing: March Shower (starting tomorrow, Saturday, 04 July 2018) Wound/Incision Care: Keep Operative Site/Wound Site Clean and Dry Notify Provider of: Fever, Increased Pain, Swelling and Redness, Drainage, Nausea and/or Vomiting Other/Special Instructions: Resume metformin 48 hours after surgery. Resume aspirin 3 days after surgery. - Discharge Plan *PRESCRIPTION DRUG MONITORING PROGRAM REVIEWED*: Not Applicable *COPY OF PRESCRIPTION DRUG MONITORING REPORT IN PATIENT LUPIS: Not Applicable Prescriptions/Med Rec: Acetaminophen/oxyCODONE [Percocet 325-5 MG] 1 - 2 tab PO Q4H PRN #30 tablet PRN Reason: Pain Docusate Sodium [Colace] 100 mg PO BID #30 capsule Home Medications: Home Meds Cholecalciferol (Vitamin D3) [Vitamin D3] 5,000 unit PO DAILY 10/12/16 [History] Citalopram [Celexa] 40 mg PO DAILY 10/12/16 [History] Ranitidine [Zantac] 150 mg PO BID 10/12/16 [History] metFORMIN HCl [Metformin HCl] 500 mg PO BID 10/12/16 [History] atorvaSTATin [Lipitor] 10 mg PO DAILY 07/07/17 [History] Aspirin [Ecotrin] 81 mg PO DAILY 07/02/18 [History] Pantoprazole Sodium [Protonix] 40 mg PO DAILY 07/02/18 [History] Acetaminophen/oxyCODONE [Percocet 325-5 MG] 1 - 2 tab PO Q4H PRN #30 tablet [Rx] Docusate Sodium [Colace] 100 mg PO BID #30 capsule 07/03/18 [Rx] Referrals: PCP,Unknown [Ordering Only Provider] - Tadeo Jauregui MD [Physician] - (Follow-up in the General Surgery clinic in 2-4 weeks.) - Discharge Summary/Plan Comment DC Time >30 min.: No - Patient Data Vitals - Most Recent: Last Vital Signs Temp 37.3 C 07/03/18 11:00 Pulse 62 07/03/18 15:25 Resp 16 07/03/18 11:00 BP 137/77 07/03/18 14:58 Pulse Ox 90 L 07/03/18 15:25 Weight - Most Recent: 114.804 kg I&O - Last 24 hours: Intake & Output 07/03/18 07/04/18 07/04/18 22:59 06:59 14:59 Intake Total 2820 1100 Balance 2820 1100 Med Orders - Current: Current Medications Hydromorphone HCl (Dilaudid) 0.5 mg IVPUSH Q2H PRN PRN Reason: PAIN Last Admin: 07/03/18 06:51 Dose: 0.5 mg Ondansetron HCl (Zofran) 4 mg IVPUSH Q6H PRN PRN Reason: Nausea Oxycodone/Acetaminophen (Percocet 325-5 Mg) 1 - 2 tab PO Q4H PRN PRN Reason: Pain Last Admin: 07/04/18 07:50 Dose: 2 tab Pantoprazole Sodium (Protonix) 40 mg PO ACBREAKFAST [facility] Last Admin: 07/04/18 07:51 Dose: 40 mg Ranitidine 150mg (Tabs Own Med) 0 each PO BID [facility] Last Admin: 07/04/18 08:24 Dose: Not Given Sodium Chloride (Saline Flush) 10 ml FLUSH ASDIRECTED PRN PRN Reason: Keep Vein Open Last Admin: 07/02/18 17:52 Dose: 10 ml Sodium Chloride (Saline Flush) 10 ml FLUSH ONETIME PRN PRN Reason: IV FLUSH Discontinued Medications Bupivacaine HCl (Marcaine 0.5%) Confirm Administered Dose 30 ml .ROUTE .STK-MED ONE Stop: 07/03/18 07:06 Last Admin: 07/03/18 09:34 Dose: 12.5 ml Dexamethasone (Dexamethasone) Confirm Administered Dose 20 mg .ROUTE .STK-MED ONE Stop: 07/03/18 07:27 Diatrizoate Meglum/Diatrizoate Sod (Gastrografin 37%) 120 ml PO ONETIME ONE Stop: 07/02/18 19:01 Last Admin: 07/03/18 00:12 Dose: Not Given Diphenhydramine HCl (Benadryl) 25 mg IVPUSH Q6H PRN PRN Reason: Pruritis Stop: 07/03/18 12:00 Famotidine (Pepcid) 20 mg PO BID [facility] Fentanyl (Sublimaze) Confirm Administered Dose 250 mcg .ROUTE .STK-MED ONE Stop: 07/03/18 07:21 Fentanyl (Sublimaze) 50 mcg IVPUSH Q5M PRN PRN Reason: Pain Stop: 07/03/18 12:00 Hydromorphone HCl (Dilaudid) 1 mg IVPUSH ONETIME ONE Stop: 07/02/18 17:15 Last Admin: 07/02/18 17:20 Dose: 1 mg Hydromorphone HCl (Dilaudid) 0.5 mg IVPUSH ONETIME ONE Stop: 07/02/18 20:38 Last Admin: 07/02/18 20:56 Dose: 0.5 mg Hydromorphone HCl (Dilaudid) 0.5 mg IVPUSH Q2H PRN PRN Reason: Pain Hydromorphone HCl (Dilaudid) Confirm Administered Dose 0.5 mg .ROUTE .STK-MED ONE Stop: 07/03/18 08:47 Hydromorphone HCl (Dilaudid) Confirm Administered Dose 0.5 mg .ROUTE .STK-MED ONE Stop: 07/03/18 08:47 Hydromorphone HCl (Dilaudid) 0.5 mg IVPUSH ONETIME PRN PRN Reason: SEVERE PAIN RATED 7-10 Stop: 07/03/18 12:00 Sodium Chloride (Normal Saline) 1,000 mls @ 150 mls/hr IV ASDIRECTED [facility] Last Admin: 07/02/18 16:24 Dose: 150 mls/hr Lactated Ringer's (Ringers, Lactated) 1,000 mls @ 120 mls/hr IV .BOLUS ONE Stop: 07/03/18 04:57 Last Admin: 07/02/18 21:04 Dose: 120 mls/hr Piperacillin Sod/Tazobactam (Sod 4.5 gm/ Sodium Chloride) 100 mls @ 25 mls/hr IV Q8H [facility] Stop: 07/03/18 23:00 Last Admin: 07/03/18 20:48 Dose: 25 mls/hr Lidocaine HCl (Xylocaine-Mpf 1%) Confirm Administered Dose 4 mls @ as directed .ROUTE .STK-MED ONE Stop: 07/03/18 07:27 Iopamidol (Isovue-300 (61%)) 150 ml IVPUSH ONETIME ONE Stop: 07/02/18 19:01 Last Admin: 07/03/18 00:12 Dose: Not Given Lidocaine/Epinephrine (Xylocaine 1% With Epinephrine 1:100,000) Confirm Administered Dose 20 ml .ROUTE .STK-MED ONE Stop: 07/03/18 07:06 Last Admin: 07/03/18 09:34 Dose: 12.5 ml Meperidine HCl (Meperidine) 12.5 mg IVPUSH ONETIME PRN PRN Reason: Shivering Stop: 07/03/18 12:00 Midazolam HCl (Versed 1 Mg/Ml) Confirm Administered Dose 2 mg .ROUTE .STK-MED ONE Stop: 07/03/18 07:21 Ranitidine 150mg (Tabs Own Med) 1 each PO ONETIME ONE Stop: 07/03/18 21:46 Last Admin: 07/03/18 21:45 Dose: 1 each Ondansetron HCl (Zofran) 4 mg IVPUSH ONETIME ONE Stop: 07/02/18 16:17 Last Admin: 07/02/18 16:24 Dose: 4 mg Ondansetron HCl (Zofran) 4 mg IVPUSH ONETIME ONE Stop: 07/02/18 17:25 Last Admin: 07/02/18 17:48 Dose: 4 mg Ondansetron HCl (Zofran) Confirm Administered Dose 4 mg .ROUTE .STK-MED ONE Stop: 07/03/18 07:27 Ondansetron HCl (Zofran) 4 mg IVPUSH ONETIME PRN PRN Reason: Nausea/Vomiting Stop: 07/03/18 12:00 Pantoprazole Sodium (Protonix) 40 mg PO DAILY [facility] Last Admin: 07/03/18 23:12 Dose: Not Given Pantoprazole Sodium (Protonix) 40 mg PO ONETIME ONE Stop: 07/03/18 21:46 Last Admin: 07/03/18 23:10 Dose: Not Given Propofol (Diprivan 20 Ml) Confirm Administered Dose 200 mg .ROUTE .STK-MED ONE Stop: 07/03/18 07:21 Ranitidine HCl (Zantac) 150 mg PO BID [facility] Last Admin: 07/03/18 23:12 Dose: Not Given Rocuronium [place] (Zemuron) Confirm Administered Dose 50 mg .ROUTE .STK-MED ONE Stop: 07/03/18 07:27
[2018-07-04 12:19] VITALS: BP 119/74
[2018-07-04] MEDS ORDERED: Famotidine 20 MG Tab PO SCH (21:00)
--- NOTE | 2018-07-05 20:01 | PCM48HPAN ---
Post Anesthesia Note - EVALUATION WITHIN 48HRS OF ANESTHETIC Vital Signs in Normal Range: Yes Patient Participated in Evaluation: Yes Respiratory Function Stable: Yes Airway Patent: Yes Cardiovascular Function Stable: Yes Hydration Status Stable: Yes Pain Control Satisfactory: Yes Nausea and Vomiting Control Satisfactory: Yes Mental Status Recovered: Yes - COMMENTS/OBSERVATIONS Free Text/Narrative:: Patient denied any anesthetic complications
== END 2018-07-04 16:28 | disposition home or self-care (01) ==
LOC: JD.ED 15:43 → JD.MS 21:01
PROVIDERS: ADMIT Student in an Organized Health Care Education/Training Program; ATTEND Student in an Organized Health Care Education/Training Program
DX: K35.3 Acute appendicitis with localized peritonitis (principal); E78.5 Hyperlipidemia, unspecified; G47.33 Obstructive sleep apnea (adult) (pediatric); E78.00 Pure hypercholesterolemia, unspecified; K21.9 Gastro-esophageal reflux disease without esophagitis; M19.90 Unspecified osteoarthritis, unspecified site; F41.9 Anxiety disorder, unspecified; F32.9 Major depressive disorder, single episode, unspecified; F43.10 Post-traumatic stress disorder, unspecified; E11.9 Type 2 diabetes mellitus without complications; E66.9 Obesity, unspecified; Z68.34 Body mass index [BMI] 34.0-34.9, adult; Z79.82 Long term (current) use of aspirin; Z79.84 Long term (current) use of oral hypoglycemic drugs; Z79.899 Other long term (current) drug therapy; Z88.5 Allergy status to narcotic agent
CPT/HCPCS: 36415; 44970; 74019; 80053; 81001; 83690; 85007; 85027; 86140; 96361; 96374; 96375; 96376; 99285; A9270; J1100; J1170; J2250; J2405; J2543; J2704; J3010; J3490; J7030; J7040; J7050; J7120; Q9963; 99284; J2001

== ENCOUNTER 2019-12-14 17:06 | Emergency (ER) | payer SELFPAY ==
[2019-12-14 17:14] VITALS: BP 131/98; PULSE 63
[2019-12-14] MEDS ORDERED: Sodium Chloride 0.9% 10 ML Syringe FLUSH PRN (17:42)
[2019-12-14] MEDS ORDERED: Aspirin 81 MG Tab.Chew PO ONE (17:42)
--- NOTE | 2019-12-14 17:58 | EDM.PDOC ---
<Farida Lemus - Last Filed: 12/14/19 17:52> ED HPI GENERAL MEDICAL PROBLEM - General Chief Complaint: Chest Pain Stated Complaint: CHEST PAIN Time Seen by Provider: 12/14/19 17:15 Source of Information: Reports: Patient History Limitations: Reports: No Limitations - History of Present Illness INITIAL COMMENTS - FREE TEXT/NARRATIVE: Patient is a pleasant 54-year-old male who presents to the ED with complaints of left-sided chest pain that started this morning when he woke up. He describes the pain as an achy pressure that increases with movement and deep breaths. He rates it at a 5-6/10 with rest and then with movement and deep breaths the pain increases to an 8/10. The pain is reproducible with palpation over the left chest. Pain does not radiate anywhere. He states he has anxiety and he just wanted to make sure it was nothing serious because of the strong cardiac history on his mother side. He states that all the males on his mother side before the age of 60 from a heart attack. Denies shortness of breath , fever, chills, recent illness, and cough. Onset: Sudden Duration: Hour(s): Location: Reports: Chest (left-side) Quality: Reports: Ache, Pressure Severity: Mild Improves with: Reports: Rest Worsens with: Reports: Breathing, Other (palpation of the chest). Denies: Movement Associated Symptoms: Reports: No Other Symptoms Left Chest Pain Score (Numeric/FACES): 7 - Related Data Allergies Allergy/AdvReac Type Severity Reaction Status Date / Time codeine Allergy Anaphylactic Verified 12/14/19 17:16 Shock Home Meds: Home Meds Cholecalciferol (Vitamin D3) [Vitamin D3] 5,000 unit PO DAILY 10/12/16 [History] Citalopram [Celexa] 40 mg PO DAILY 10/12/16 [History] Ranitidine [Zantac] 150 mg PO BID 10/12/16 [History] metFORMIN HCl [Metformin HCl] 500 mg PO BID 10/12/16 [History] atorvaSTATin [Lipitor] 10 mg PO DAILY 05/10/17 [History] Aspirin [Ecotrin] 81 mg PO DAILY 07/02/18 [History] Pantoprazole Sodium [Protonix] 40 mg PO DAILY 07/02/18 [History] Acetaminophen/oxyCODONE [Percocet 325-5 MG] 1 - 2 tab PO Q4H PRN #30 tablet [Rx] Docusate Sodium [Colace] 100 mg PO BID #30 capsule 07/03/18 [Rx] Past Medical History HEENT History: Reports: None Cardiovascular History: Reports: High Cholesterol Respiratory History: Reports: Sleep Apnea Gastrointestinal History: Reports: GERD Genitourinary History: Reports: None VALIDATION CONSULTANT History: Reports: Other (See Below) Other VALIDATION CONSULTANT History: degenerative joint disease Musculoskeletal History: Reports: Osteoarthritis, Other (See Below) Other Musculoskeletal History: Degenerative joint disease Neurological History: Reports: Other (See Below) Other Neuro History: short term memory loss Psychiatric History: Reports: Anxiety, Depression, PTSD Endocrine/Metabolic History: Reports: Diabetes, Type II, Obesity/BMI 30+, Other (See Below) Other Endocrine/Metabolic History: Impaired fasting glucose Hematologic History: Reports: None Immunologic History: Reports: None Oncologic (Cancer) History: Reports: None Dermatologic History: Reports: None Other Dermatologic History: dryness to scalp - Infectious Disease History Infectious Disease History: Reports: Chicken Pox - Past Surgical History HEENT Surgical History: Reports: Tonsillectomy, Other (See Below) Cardiovascular Surgical History: Reports: None Respiratory Surgical History: Reports: None GI Surgical History: Reports: Appendectomy, Colonoscopy Male Surgical History: Reports: None Neurological Surgical History: Reports: Discectomy Musculoskeletal Surgical History: Reports: Knee Replacement, Other (See Below) Other Musculoskeletal Surgeries/Procedures:: Left total knee replacement, low back surgery, cervical anterior diskectomy Dermatological Surgical History: Reports: None Social & Family History - Family History Family Medical History: Noncontributory Cardiac: Reports: Hypertension, [place] - Tobacco Use Smoking Status *Q: Never Smoker Second Hand Smoke Exposure: No - Caffeine Use Caffeine Use: Reports: Coffee, Energy Drinks, Soda Other Caffeine Use: 2 energy drinks - Recreational Drug Use Recreational Drug Use: No ED ROS GENERAL - Review of Systems Review Of Systems: See Below Constitutional: Reports: No Symptoms. Denies: Fever, Chills, Weakness, Fatigue Respiratory: Reports: No Symptoms. Denies: Shortness of Breath, Wheezing, Cough Cardiovascular: Reports: Chest Pain (left-side- achy pressure that increases with movement, deep breaths, and palpation), Edema (chronic- bilateral lower extremities). Denies: Dyspnea on Exertion, Lightheadedness, Syncope GI/Abdominal: Reports: No Symptoms. Denies: Abdominal Pain, Diarrhea, Nausea, Vomiting Musculoskeletal: Reports: No Symptoms Skin: Reports: No Symptoms. Denies: Bruising, Rash, Erythema Neurological: Reports: No Symptoms. Denies: Dizziness, Headache, Numbness, Syncope, Tingling Psychiatric: Reports: Anxiety ED EXAM, GENERAL - Physical Exam Exam: See Below Exam Limited By: No Limitations General Appearance: Alert, WD/WN, No Apparent Distress, Anxious Neck: Normal Inspection, Supple, Non-Tender, Full Range of Motion Respiratory/Chest: No Respiratory Distress, Lungs Clear, Normal Breath Sounds, No Accessory Muscle Use, Chest Non-Tender, Other (reproducible pain with palpation over left chest) Cardiovascular: Normal Peripheral Pulses, Regular Rate, Rhythm, No Edema, No Gallop, No Murmur, No Rub GI/Abdominal: Normal Bowel Sounds, Soft, Non-Tender, No Organomegaly, No Distention, No Mass Back Exam: Normal Inspection, Full Range of Motion, NT Extremities: Normal Inspection, Normal Range of Motion, Non-Tender, Normal Capillary Refill, Pedal Edema (1+ bilateral lower extremities) Neurological: Alert, Oriented, Normal Cognition, Normal Gait, No Motor/Sensory Deficits Psychiatric: Normal Affect, Normal Mood Skin Exam: Warm, Dry, Intact, Normal Color, No Rash Lymphatic: No Adenopathy Course - Vital Signs Last Recorded V/S: Last Vital Signs Temp 97.7 F 12/14/19 17:11 Pulse 63 12/14/19 17:11 Resp 14 12/14/19 17:11 BP 131/98 H 12/14/19 17:11 Pulse Ox 94 L 12/14/19 17:11 - Orders/Labs/Meds Orders: Active Orders 24 hr Category Date Time Status Cardiac Monitoring [RC] . DIRECTED Care 12/14/19 17:42 Active EKG Documentation Completion [RC] STAT Care 12/14/19 17:43 Active Peripheral IV Care [RC] . DIRECTED Care 12/14/19 17:43 Active Chest 2V [CR] Stat Exams 12/14/19 17:43 Taken Sodium Chloride 0.9% [Saline Flush] Med 12/14/19 17:42 Active 10 ml FLUSH ASDIRECTED PRN Peripheral IV Insertion Adult [OM.PC] Stat Oth 12/14/19 17:42 Ordered Medication Orders Sodium Chloride (Saline Flush) 10 ml FLUSH ASDIRECTED PRN PRN Reason: Keep Vein Open Last Admin: 12/14/19 18:00 Dose: 10 ml Labs: Laboratory Tests 12/14/19 12/14/19 12/14/19 Range/Units 17:49 17:49 17:49 WBC 7.67 (4.23-9.07) K/mm3 RBC 4.55 L (4.63-6.08) M/mm3 Hgb 14.1 (13.7-17.5) gm/dl Hct 42.6 (40.1-51.0) % MCV 93.6 H (79.0-92.2) fl MCH 31.0 (25.7-32.2) pg MCHC 33.1 (32.2-35.5) g/dl RDW Std Deviation 43.8 (35.1-43.9) fL Plt Count 215 (163-337) K/mm3 MPV 10.0 (9.4-12.3) fl Neut % (Auto) 44.3 (34.0-67.9) % Lymph % (Auto) 41.2 (21.8-53.1) % [place] % (Auto) 12.9 H (5.3-12.2) % Eos % (Auto) 1.2 (0.8-7.0) Baso % (Auto) 0.3 (0.1-1.2) % Neut # (Auto) 3.40 (1.78-5.38) K/mm3 Lymph # (Auto) 3.16 (1.32-3.57) K/mm3 [place] # (Auto) 0.99 H (0.30-0.82) K/mm3 Eos # (Auto) 0.09 (0.04-0.54) K/mm3 Baso # (Auto) 0.02 (0.01-0.08) K/mm3 D-Dimer, Quantitative 0.29 (0.19-0.50) mg/L Sodium 142 (136-145) mEq/L Potassium 4.2 (3.5-5.1) mEq/L Chloride 104 (98-107) mEq/L Carbon Dioxide 31 (21-32) mEq/L Anion Gap 11.2 (5-15) BUN 21 H (7-18) mg/dL Creatinine 1.0 (0.7-1.3) mg/dL Est Cr Clr Drug Dosing 91.61 mL/min Estimated GFR (MDRD) > 60 (>60) mL/min BUN/Creatinine Ratio 21.0 H (14-18) Glucose 85 (74-106) mg/dL Calcium 9.3 (8.5-10.1) mg/dL Total Bilirubin 0.2 (0.2-1.0) mg/dL AST 19 (15-37) U/L ALT 45 (16-63) U/L Alkaline Phosphatase 99 (46-116) U/L Troponin I < 0.017 (0.00-0.056) ng/mL Total Protein 7.8 (6.4-8.2) g/dl Albumin 4.0 (3.4-5.0) g/dl Globulin 3.8 gm/dL Albumin/Globulin Ratio 1.1 (1-2) Meds: Medications Generic Name Dose Route Start Last Admin Trade Name Freq PRN Reason Stop Dose Admin Sodium Chloride 10 ml 12/14/19 17:42 12/14/19 18:00 Saline Flush FLUSH 10 ml ASDIRECTED PRN Administration Keep Vein Open Discontinued Medications Generic Name Dose Route Start Last Admin Trade Name Freq PRN Reason Stop Dose Admin Aspirin 324 mg 12/14/19 17:42 12/14/19 17:59 Aspirin PO 12/14/19 17:43 324 mg ONETIME ONE Administration Departure - Departure Disposition: Home, Self-Care 01 Clinical Impression: Atypical chest pain Referrals: Alisa Khan PA-C [Primary Care Provider] - 1 Week Forms: ED Department Discharge Additional Instructions: Take tylenol or motrin for any pain. Please return if you are worse. Sepsis Event Note - Evaluation Sepsis Screening Result: No Definite Risk - Focused Exam Vital Signs: Vital Signs Temp Pulse Resp BP Pulse Ox 12/14/19 17:11 97.7 F 63 14 131/98 H 94 L Date Exam was Performed: 12/14/19 Time Exam was Performed: 17:52 - My Orders Last 24 Hours: My Active Orders 12/14/19 17:42 Cardiac Monitoring [RC] . DIRECTED Sodium Chloride 0.9% [Saline Flush] 10 ml FLUSH ASDIRECTED PRN Peripheral IV Insertion Adult [OM.PC] Stat 12/14/19 17:43 EKG Documentation Completion [RC] STAT Peripheral IV Care [RC] . DIRECTED Chest 2V [CR] Stat - Assessment/Plan Last 24 Hours: My Active Orders 12/14/19 17:42 Cardiac Monitoring [RC] . DIRECTED Sodium Chloride 0.9% [Saline Flush] 10 ml FLUSH ASDIRECTED PRN Peripheral IV Insertion Adult [OM.PC] Stat 12/14/19 17:43 EKG Documentation Completion [RC] STAT Peripheral IV Care [RC] . DIRECTED Chest 2V [CR] Stat <Donaldo Guy - Last Filed: 12/14/19 18:58> EKG INTERPRETATION EKG Date: 12/14/19 Time: 17:10 Rhythm: NSR Rate (Beats/Min): 62 [place]: Normal P-Wave: Present QRS: Normal ST-T: Normal QT: Normal Course - Re-Assessments/Exams Free Text/Narrative Re-Assessment/Exam: 12/14/19 18:48 I examined the patient myself and I agree with Farida's assessment and plan. I ordered an IV saline lock, EKG, CXR, labs and aspirin. His EKG shows a NSR with no acute changes. His CBC looks good. His CMP looks good and his troponin is negative. His D-dimer is negative. I will discharge him home. Departure - Departure Time of Disposition: 19:00 Condition: Good Sepsis Event Note - Focused Exam Date Exam was Performed: 12/14/19 Time Exam was Performed: 18:57
--- NOTE | 2019-12-14 19:22 | CR ---
Chest: 2 views of the chest were obtained. Comparison: Prior chest x-ray of 08/21/18. Heart size and mediastinum are normal. Lungs are clear and no acute parenchymal change. Minimal scoliosis is noted within the spine. Previous cervical spine surgery is noted. Nothing acute is seen within any of the osseous structures. Impression: 1. Nothing acute is seen on 2 view chest x-ray Diagnostic code #2 Study was dictated in [place] Standard Time
== END 2019-12-14 18:55 | disposition home or self-care (01) ==
LOC: JD.ED 17:06
DX: R07.89 Other chest pain (principal); E78.00 Pure hypercholesterolemia, unspecified; K21.9 Gastro-esophageal reflux disease without esophagitis; F41.9 Anxiety disorder, unspecified; F32.9 Major depressive disorder, single episode, unspecified; E11.9 Type 2 diabetes mellitus without complications; E66.9 Obesity, unspecified; Z88.5 Allergy status to narcotic agent; Z79.84 Long term (current) use of oral hypoglycemic drugs; Z79.82 Long term (current) use of aspirin; Z79.899 Other long term (current) drug therapy; Z90.49 Acquired absence of other specified parts of digestive tract
CPT/HCPCS: 36415; 71046; 80053; 84484; 85025; 85379; 93005; 99285; A9270; 93010; 99283

== ENCOUNTER 2020-06-27 08:55 | Emergency (ER) | payer OTHER, BC ==
[2020-06-27] MEDS ORDERED: Metoclopramide 10 MG/2 ML SDV ONE (09:02)
[2020-06-27] MEDS ORDERED: HYDROmorphone 1 MG/ML Syringe ONE (09:02)
[2020-06-27] MEDS ORDERED: Metoclopramide 10 MG/2 ML SDV IVPUSH ONE (09:08)
[2020-06-27] MEDS ORDERED: HYDROmorphone 1 MG/ML Syringe IVPUSH ONE ×2 (09:08→10:24)
[2020-06-27] MEDS ORDERED: Iopamidol 755 Mg/ML 100 ML Bottle IVPUSH ONE (09:11)
[2020-06-27] MEDS ORDERED: Iopamidol 755 MG/ML 50 ML Bottle IVPUSH ONE (09:11)
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
[2020-06-27] MEDS ORDERED: Sodium Chloride 0.9% 1,000 ML IV SCH (09:15)
[2020-06-27] MEDS: Sodium Chloride 0.9% 10 ML Syringe FLUSH PRN ×2 (09:30→09:43)
[2020-06-27 09:33] VITALS: BP 131/78; PULSE 75
--- NOTE | 2020-06-27 09:52 | CT ---
CT cervical spine Technique: Multiple axial sections were obtained from above C1 inferiorly through the bottom of T1. Reconstructed sagittal and coronal images were obtained. Findings: Anterior plate and screws cause artifact which is noted at the C5-6 and C6-7 levels. Mild degenerative change is noted between the dens and anterior arch of C1. Mild disc space narrowing of the C2-3 with posterior osteophytes and anterior osteophytes. Moderate disc space narrowing is noted at C3-4 with mild spondylolisthesis due to degenerative apophyseal change. Posterior spurring is seen. Calcification is also noted posterior to the disc at C3-4 compatible with annular calcification. Moderate disc space narrowing at C4-5 with mild posterior osteophytes and anterior osteophytes. Moderate disc space narrowing is noted at C7-T1. Scattered degenerative apophyseal changes noted throughout other levels of the lumbar spine. Well-corticated bony density is noted off the distal tip of the articular margin on the right side of C3 which is old and is likely degenerative. No acute fracture is seen. Mild scattered neural foraminal narrowing is also noted. Impression: 1. Artifact from previous cervical spine surgery. 2. Degenerative change as noted above. 3. No acute fracture is seen on CT study of the cervical spine. Diagnostic code #2 This report was dictated in MDT
--- NOTE | 2020-06-27 10:06 | CT ---
CT chest Technique: Multiple axial sections through the chest were obtained. Intravenous contrast was utilized. Reconstructed coronal and sagittal images were obtained. Comparison: No prior chest CT study, prior chest x-ray of 12/14/19. Findings: Mediastinum and hilar regions show no adenopathy. Aorta shows no aneurysm. No pericardial thickening is seen. Lungs are clear with no acute parenchymal change. No pleural effusions or pneumothorax are identified. Bone window settings were reviewed which shows no discrete rib fracture. Fracture is noted within the T12 vertebral body which is vertical in orientation. This will be described on thoracic spine CT exam. Impression: 1. Fracture within T12 which will be described on thoracic spine CT exam. 2. Nothing acute is otherwise seen on CT study of the chest. Diagnostic code #5 This report was dictated in MDT CT abdomen and pelvis Technique: Multiple axial sections were obtained from above the dome of the diaphragm inferiorly through the pubic symphysis. Intravenous contrast was utilized. Delayed images were obtained through the bladder. Reconstructed coronal and sagittal were reviewed. Comparison: No prior abdominal or pelvic CT exam is available. Findings: Fatty infiltration is seen within the liver. Liver shows no acute abnormality. Spleen appears within normal limits. Adrenal glands show no nodule. Pancreas is within normal limits. Aorta shows no aneurysm. No retroperitoneal adenopathy or mesenteric abnormalities are seen. No pelvic mass or adenopathy is seen. Small fat-containing bilateral inguinal hernias are noted. No free fluid or inflammatory change is appreciated. Delayed images show contrast within the distal ureters as well as within the bladder. Prior surgery is noted with the lumbar spine. Compression deformity is seen within the superior endplate of L2 which will be described on CT lumbar spine study. Impression: 1. Superior endplate fracture of L2 which will be described on lumbar spine CT study. 2. Other findings as noted above which are nonacute. Diagnostic code #3 This report was dictated in MDT
--- NOTE | 2020-06-27 10:10 | CT ---
CT lumbar spine Technique: Multiple axial sections through the lumbar spine were obtained. Reconstructed coronal and sagittal images were obtained. Findings: Acute fracture is noted within the superior endplate of L2. Mild endplate concavity is seen. Fracture is mildly comminuted. Fracture does not extend into the posterior elements. Fracture is noted within the superior endplate of L3. Minimal endplate concavity is seen. No extension of any fracture line is seen into the posterior elements. Previous surgery is noted at L3-4 and L4-5 with trans-pedicle screws and disc space narrowing. No additional fracture is appreciated within the lumbar spine. Fracture is noted within T12 which will be described on thoracic spine CT. Scattered disc bulging is noted. Possible calcified disc fragment posteriorly to the left side at L4-5. Degenerative apophyseal change is noted within the spine. Impression: 1. Fractures within the superior endplates of L2 and L3. No extension of any fracture line into the posterior elements at both these levels. 2. Previous surgery at L3-4 and L4-5. 3. Possible calcified disc fragment posteriorly to the left side at L4-5. Diagnostic code #3 This report was dictated in MDT
--- NOTE | 2020-06-27 10:24 | CT ---
CT thoracic spine Technique: Multiple axial sections through the thoracic spine were obtained. Reconstructed sagittal and coronal images were reviewed. Fracture is identified through the vertebral body of T12. Fracture is comminuted with a vertical fracture line extending from the superior to the inferior endplate. Endplate concavities are noted on both sides of this vertebral body. Fracture does not extend into the posterior elements. No additional thoracic spine fracture is appreciated. Scattered anterior endplate osteophytes are seen. No bony central or bony neural foraminal stenosis is appreciated. Impression: 1. Comminuted vertebral body fracture as described above within T12. No extension of any fracture line into the posterior elements are seen. 2. Mild degenerative change is noted. 3. No other acute finding is appreciated within the thoracic spine. Diagnostic code #5 This report was dictated in MDT
[2020-06-27] MEDS ORDERED: Lidocaine 2% Jelly 10 ML Urojet MUCMEM ONE (10:32)
== END 2020-06-27 11:20 ==
LOC: JD.ED 08:55
DX: S32.039A Unspecified fracture of third lumbar vertebra, initial encounter for closed fracture (principal); S32.029A Unspecified fracture of second lumbar vertebra, initial encounter for closed fracture; S22.089A Unspecified fracture of T11-T12 vertebra, initial encounter for closed fracture; E78.00 Pure hypercholesterolemia, unspecified; K21.9 Gastro-esophageal reflux disease without esophagitis; E11.9 Type 2 diabetes mellitus without complications; F41.9 Anxiety disorder, unspecified; F32.9 Major depressive disorder, single episode, unspecified; E66.9 Obesity, unspecified; Z90.49 Acquired absence of other specified parts of digestive tract; Z88.5 Allergy status to narcotic agent; Z79.82 Long term (current) use of aspirin; Z79.84 Long term (current) use of oral hypoglycemic drugs; Z79.899 Other long term (current) drug therapy; Z68.36 Body mass index [BMI] 36.0-36.9, adult; Z20.828 Contact with and (suspected) exposure to other viral communicable diseases; V89.0XXA Person injured in unspecified motor-vehicle accident, nontraffic, initial encounter
CPT/HCPCS: 36415; 71260; 72125; 72128; 72131; 74177; 80053; 80306; 80307; 81001; 83690; 83735; 83880; 84484; 85025; 85610; 85730; 86850; 86900; 86901; 87635; 93005; 96361; 96374; 96375; 96376; 99285; J1170; J2765; J7030; Q9967; 93010; U0002

== ENCOUNTER 2021-05-11 07:42 | Day surgery (SDC) | payer OTHER ==
[~2021-05-11 07:42] MED LIST changes: +Lactated Ringers 1,000 ML IV SCH; +Lidocaine 1%/Sod Bicarbonate in NS 8.4% 1 ML Syringe IDERM PRN; -Lidocaine 1%/Sod Bicarbonate in NS 8.4% 1 ML Syringe PRN
[2021-05-11] MEDS ORDERED: Propofol 200 MG/20 ML SDV ONE ×2 (07:46→11:09)
[2021-05-11] MEDS ORDERED: Midazolam 1 MG/ML 2 ML SDV ONE (07:46)
[2021-05-11] MEDS ORDERED: fentaNYL 250 MCG/5 ML SDV ONE (07:46)
[2021-05-11] MEDS ORDERED: Rocuronium 50 MG/5 ML Vial ONE (07:47)
[2021-05-11] MEDS ORDERED: Dexamethasone 4 MG/ML 5 ML MDV ONE (07:50)
[2021-05-11] MEDS ORDERED: Lidocaine 1% 4 ML ONE (07:57)
[2021-05-11] MEDS ORDERED: EPINEPHrine 1 MG/ML SDV ONE (07:57)
[2021-05-11] MEDS ORDERED: Ropivacaine 0.5% 5 MG/ML 30 ML SDV ONE (07:58)
[2021-05-11] MEDS ORDERED: EPINEPHrine 1 MG/ML 30 ML MDV IRR SCH (08:00)
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
--- NOTE | 2021-05-11 08:11 | PCM.SN.2 ---
- Free Text/Narrative Note: Anesthesia Note: Interscalene Block Time Out: 0849 Start: 0851 Stop: 905 Current Procedure: Right interscalene block under US guidance for postoperative pain control requested by Dr. Chapman. Patient chart reviewed, risk/benefits discussed with patient, consent obtained. Patient positioned supine, monitors/alarms on, oxygen placed via nasal cannula at 2 LPM. IV sedation administered: Versed 2mg IV, Fentanyl 50mcg IV given in preop prior to block placement. Right shoulder prepped with two chloropreps. Sterile drapes placed with aseptic technique noted. Under US guidance, right subclavian artery visualized along with the right brachial plexus. Plexus followed up to C6 cricoid level, and area localized with 2mls of 1% lidocaine. 22gauge 2 inch stimiplex needle advanced under US with 0.6mV with stimulation of biceps noted. Good stimulation noted with decreased voltage and absent at 0.3mVs. 1ml of Normal Saline injected with loss of stimulation noted to confirm needle not placed intraneurally. Incremental dosing of 5mls with negative aspiration noted prior to each injection of 0.5% ropivacaine with 1:200,000 epinephrine. Total volume=30mls. Please refer to nurses noted for vital signs. Bertha Santana CRNA
[2021-05-11] MEDS ORDERED: Ondansetron 4 MG/2 ML SDV IVPUSH PRN (08:24)
[2021-05-11] MEDS ORDERED: HYDROmorphone 0.5 MG/0.5 ML Syringe IVPUSH PRN (08:24)
[2021-05-11] MEDS ORDERED: fentaNYL 100 MCG/2 ML SDV IVPUSH PRN (08:24)
[2021-05-11] MEDS ORDERED: ceFAZolin 1 GM Vial ONE (09:40)
[2021-05-11] MEDS ORDERED: Lactated Ringers 1,000 ML ONE ×2 (10:20→11:21)
[2021-05-11] MEDS ORDERED: Ondansetron 4 MG/2 ML SDV ONE (11:03)
[2021-05-11] MEDS ORDERED: Ketorolac 30 MG/ML SDV ONE (11:03)
[2021-05-11] MEDS ORDERED: Albuterol 6.7 GM Inhaler INH ONE (11:20)
--- NOTE | 2021-05-11 11:46 | PCM.POSTAN ---
POST ANESTHESIA ASSESSMENT - MENTAL STATUS Mental Status: Alert - VITAL SIGNS Vital Signs: 1131 177/87 96 on 10 L 85 14 97.4 Last Vital Signs Temp 36.9 C 05/11/21 07:40 Pulse 63 05/11/21 09:06 Resp 13 05/11/21 09:06 BP 138/93 H 05/11/21 09:06 Pulse Ox 100 05/11/21 09:06 - RESPIRATORY Respiratory Status: Respiratory Rate WNL, Airway Patent, O2 Saturation Stable, Supplemental Oxygen - CARDIOVASCULAR CV Status: Pulse Rate WNL, Elevated Blood Pressure - GASTROINTESTINAL GI Status: No Symptoms - PAIN Pain Score: 0 - POST OP HYDRATION Hydration Status: Adequate & Stable
--- NOTE | 2021-05-11 13:26 | PCM48HPAN ---
Post Anesthesia Note - EVALUATION WITHIN 48HRS OF ANESTHETIC Vital Signs in Normal Range: Yes Patient Participated in Evaluation: Yes Respiratory Function Stable: Yes Airway Patent: Yes Cardiovascular Function Stable: Yes Hydration Status Stable: Yes Pain Control Satisfactory: Yes Nausea and Vomiting Control Satisfactory: Yes Mental Status Recovered: Yes Vital Signs: Last Vital Signs Temp 36.9 C 05/11/21 12:55 Pulse 57 L 05/11/21 12:55 Resp 18 05/11/21 12:55 BP 121/77 05/11/21 12:55 Pulse Ox 92 L 05/11/21 12:55
[2021-05-11 15:06] VITALS: BP 117/76
[2021-05-11 16:23] VITALS: PULSE 50
--- NOTE | 2021-05-23 07:39 | PCM.OPNOTE ---
- General Post-Op/Procedure Note Date of Surgery/Procedure: 05/11/21 Operative Procedure(s): right shoulder video arthroscopy small rotator cuff repair, subacromail decompression, biceps tenotomy, SLAP repair and extensive debridement Pre Op Diagnosis: right shoulder rotator cuff tear with impingement and possible SLAP tear Post-Op Diagnosis: Same Anesthesia Technique: General ET Tube, Regional Block Primary Surgeon: Estevan Chapman Anesthesia Provider: Bertha Santana Histopathology Technician: Anna Hairston in mLs: 5 Complications: None Condition: Good
--- NOTE | 2021-05-23 08:26 | OR ---
DATE OF OPERATION: 05/11/2021 SURGEON: Estevan Chapman MD OPERATION PERFORMED: Right shoulder video arthroscopy, small rotator cuff repair, subacromial decompression, biceps tenotomy, SLAP repair, and extensive debridement. PREOPERATIVE DIAGNOSIS: Right shoulder rotator cuff tear with impingement and possible SLAP tear. POSTOPERATIVE DIAGNOSIS: Right shoulder rotator cuff tear with impingement and possible SLAP tear. ANESTHESIA: General endotracheal intubation with regional interscalene block. ANESTHESIA PROVIDER: Bertha Santana CRNA TELEHEALTH COORDINATOR: Anna Hairston PA-C ESTIMATED BLOOD LOSS: 5 mL. COMPLICATIONS: None. CONDITION: Stable. DESCRIPTION OF PROCEDURE: The patient was identified in the preoperative holding area, where proper site was marked and identified by the surgeon. The patient was taken back to the operating theatre where after adequate anesthesia, the patient was placed in the lazy left lateral decubitus position. Wedge was placed posteriorly. The patient was secured to the table. Right upper extremity was then sterilely prepped and draped in the usual sterile fashion. OR time-out was performed. Patient received 2 g IV Ancef. 12 pounds of traction was applied to the right upper extremity. Standard posterior incision was made. Scope trocar was introduced in the glenohumeral joint. With the use of a spinal needle, anterior portal was created with an outside-in technique. At this time, patient was noted to have a significant large SLAP tear of the superior labrum as well as significant biceps fraying. The subscapularis tendon was intact. He had a high- grade partial-thickness tear of the supraspinatus noted. The patient was also noted to have significant synovitis and extensive debridement was then done of the glenohumeral joint. A biceps tenotomy was then performed as well as significant debridement of the superior labrum. The remaining portion of the superior labrum then was fixed with 2.9 mm Arthrex PushLock anchors to secure the remaining labrum to the glenoid. At this time, attention was turned to the subacromial space. An extensive debridement was done of the subacromial space and bursa. The patient was noted to have a type 3 acromion, so subacromial decompression was completed back to a smooth border with posterior rim. The patient was noted to have a high-grade partial-thickness tear. A good bony bleeding bed was created of the small supraspinatus tear, and Stryker all- suture anchor was then placed medially. Six limbs of suture were then placed through the tear and brought out with the lateral anchor laterally. It was found to have watertight repair of the rotator cuff and supraspinatus tendon with good uatsdin of the footprint. At this time, adequate saline was irrigated through the shoulder. Excess saline was drained. 3-0 nylon suture was used for closure of the anterolateral and posterior portal incisions, as a lateral portal was created during the repair of the rotator cuff. At this time, sterile soft dressing as well as a pillow sling were applied. The patient tolerated the procedure well and sent to PACU in stable condition. ZAYNAB /[id number]
== END 2021-05-11 17:59 | disposition home or self-care (01) ==
LOC: JD.SDS 07:42 → JD.MS 13:49 → JD.SDS 17:59
PROVIDERS: ATTEND Orthopaedic Surgery
DX: M75.111 Incomplete rotator cuff tear or rupture of right shoulder, not specified as traumatic (principal); M25.811 Other specified joint disorders, right shoulder; S43.431A Superior glenoid labrum lesion of right shoulder, initial encounter; G47.30 Sleep apnea, unspecified; E78.5 Hyperlipidemia, unspecified; G47.33 Obstructive sleep apnea (adult) (pediatric); K21.9 Gastro-esophageal reflux disease without esophagitis; E55.9 Vitamin D deficiency, unspecified; G89.18 Other acute postprocedural pain; E66.9 Obesity, unspecified; E78.00 Pure hypercholesterolemia, unspecified; Z79.899 Other long term (current) drug therapy; Z88.5 Allergy status to narcotic agent; Z98.890 Other specified postprocedural states; Z68.36 Body mass index [BMI] 36.0-36.9, adult
CPT/HCPCS: 29807; 29826; 29827; 82947; A9270; C1713; J0171; J0690; J1100; J1885; J2250; J2405; J2704; J2710; J2795; J3010; J7120; 01630; 64415; 76942

== ENCOUNTER 2024-11-24 07:41 | Day surgery (SDC) | payer BC, OTHER ==
[~2024-11-24 07:41] MED LIST changes: -Lactated Ringers 1,000 ML IV SCH; -Lidocaine 1%/Sod Bicarbonate in NS 8.4% 1 ML Syringe IDERM PRN; +Sodium Chloride 0.9% 10 ML Syringe FLUSH SCH
[2024-11-24] MEDS: Lactated Ringers 1,000 ML IV SCH (08:05)
[2024-11-24] MEDS ORDERED: Lidocaine 1% 4 ML ONE (08:24)
[2024-11-24] MEDS ORDERED: Propofol 200 MG/20 ML SDV ONE ×2 (08:24→08:44)
[2024-11-24] MEDS ORDERED: Lidocaine 1% 2 ML ONE (08:39)
[2024-11-24 13:01] VITALS: BP 132/74; PULSE 74
== END 2024-11-24 10:00 | disposition home or self-care (01) ==
LOC: JD.SDS 07:41
PROVIDERS: ATTEND Surgery
DX: Z12.11 Encounter for screening for malignant neoplasm of colon (principal); K57.30 Diverticulosis of large intestine without perforation or abscess without bleeding; K58.9 Irritable bowel syndrome, unspecified; E78.00 Pure hypercholesterolemia, unspecified; E66.9 Obesity, unspecified; E11.9 Type 2 diabetes mellitus without complications; Z88.5 Allergy status to narcotic agent; Z79.82 Long term (current) use of aspirin; Z79.2 Long term (current) use of antibiotics; Z68.31 Body mass index [BMI] 31.0-31.9, adult; Z79.899 Other long term (current) drug therapy
CPT/HCPCS: 00812; J2704; J3490; J7120

== ENCOUNTER 2025-04-11 14:59 | Emergency (ER) | payer OTHER, BC ==
[2025-04-11] MEDS ORDERED: Naloxone 0.4 MG/ML SDV IVPUSH PRN (15:46)
[2025-04-11] MEDS: Ketorolac 60 MG/2 ML SDV IM ONE (16:01)
[2025-04-11] MEDS: HYDROmorphone 1 MG/ML Syringe IM ONE (16:01)
[2025-04-11] MEDS: methylPREDNISolone Sodium Succinate 125 MG/2 ML SDV IM ONE (16:02)
[2025-04-11 16:28] VITALS: BP 100/72; PULSE 87
== END 2025-04-11 16:15 | disposition home or self-care (01) ==
LOC: JD.ED 14:59
DX: M54.42 Lumbago with sciatica, left side (principal); M54.16 Radiculopathy, lumbar region; E78.00 Pure hypercholesterolemia, unspecified; E11.9 Type 2 diabetes mellitus without complications; Z88.5 Allergy status to narcotic agent; Z79.899 Other long term (current) drug therapy; Z79.82 Long term (current) use of aspirin; Z79.84 Long term (current) use of oral hypoglycemic drugs
CPT/HCPCS: 96372; 99283; J1171; J1885; J2919; 99284